=== PATIENT | male | born 1950 | race Caucasian/White ===

== ENCOUNTER 2017-03-10 07:53 | Inpatient (IN) | payer OTHER, MEDICARE ==
[~2017-03-10] VITALS: Ht 182.9 cm; Wt 76.1 kg
[2017-03-10] VITALS (11 sets, daily range): BP systolic 107–148; BP diastolic 62–83; PULSE 101–117; RESP 20–24; TEMP 97.1–98.4; O2SAT 91–96
[~2017-03-10 07:53] MED LIST: ADVA250A INH; ALBU0.086 NEB; ASPI325T PO; AZIT250T74 PO; METO50CR PO; MEVA40TA PO; PRED20 PO; SPIRCAP INH; Z.0.OXYGEN INH; Z.0.OXYGENDME NC; [UNRECOGNIZED DRUG - CODE] PO
[2017-03-10] MEDS ORDERED: SODIUM CHLORIDE 0.9% FLUSH 10 ML FLUSH IVF PRN (08:15)
[2017-03-10] MEDS ORDERED: methylPREDNISolone SOD SUCC 125 MG/2 ML VIAL IVP ONE (08:15)
[2017-03-10] MEDS: RESP: ALBUTEROL 2.5 MG/IPRATROPIUM 0.5 MG NEB (SCH) INH ×7 (08:18→23:12)
--- NOTE | 2017-03-10 08:20 | PD ---
HPI Chief Complaint: COPD exacerbation Time Seen by Provider: 08:04 Travel History International Travel<30 days: No Contact w/Intl Traveler<30days: No History of Present Illness HPI Patient is a 66-year-old male with history of emphysema who is on 2 L home O2 at all times, presents to emergency room with complaints of COPD exacerbation. Patient reports that since Saturday, he has been coughing and bringing up thick productive mucus. Patient reports that he had to increase his oxygen to 3 L nasal cannula as he has been feeling increasingly short of breath. Patient reports that he is still a smoker, reports that he smokes one pack of cigarettes every 2 days. Patient denies any chest pain at this time, reports that he does feel short of breath. Patient reports that symptoms are similar to when he was diagnosed with COPD exacerbation the past. Patient also reports that he has been wheezing, he has been using his neb treatments with no relief of symptoms. Patient denies any fevers or chills at this time. Patient with no sick contacts. PFSH Past Medical History Blood Disorders: No Heart Rhythm Problems: Yes Cancer: No Cardiovascular Problems: Yes (PACEMAKER) High Cholesterol: Yes Congestive Heart Failure: No COPD: Yes Coronary Artery Disease: No (Hx Afib/ Pacemaker) Diabetes: No Endocrine: No Gastrointestinal Disorders: No Genitourinary: No Hepatitis: No Hiatal Hernia: No Hypertension: No Immune Disorder: No Implanted Vascular Access Dvce: No Musculoskeletal: Yes (ARTHRITIS, NECK/ BACK HNP'S) Neurologic: Yes (VERTIGO HX) Psychiatric: No Reproductive: No Respiratory: Yes Sleep Apnea: No Thyroid Disease: No Past Surgical History Abdominal Surgery: Yes (APPENDECTOMY) AICD: No Appendectomy: Yes Cardiac Surgery: Yes (PACEMAKER 02/13) Ear Surgery: Yes (EAR DRUM REPLACED CHILD, L EAR SURGERY 06/2012) Joint Replacement: Yes Pacemaker: Yes Other Surgery: Yes Social History Alcohol Use: Yes (OCCATIONAL BEER) Tobacco Use: Yes (1/2 ppd) Substance Use: No Allergies-Medications (Allergen,Severity, Reaction): Coded Allergies: No Known Allergies (Verified , 03/10/17) Reported Meds & Prescriptions Reported Meds & Active Scripts Active Reported Advair Diskus Inh (Fluticasone-Salmeterol Inh) 250-50 Mcg/Blist Aer 1 Puff INH BID Rinse mouth after use. Spiriva Handihaler (Tiotropium Inh) 18 Mcg Cap 18 Mcg INH DAILY 1 capsule = 18 mcg Diltiazem CD 24 HR 240 Mg Caper 240 Mg PO DAILY Aspirin 325 Mg Tab 325 Mg PO DAILY Lovastatin 40 Mg Tab 40 Mg PO HS Review of Systems General / Constitutional: Positive: Chills, No: Fever Eyes: No: Visual changes HENT: No: Headaches Cardiovascular: No: Chest Pain or Discomfort Respiratory: Positive: Cough, Shortness of Breath, Wheezing Gastrointestinal: No: Nausea, Vomiting, Abdominal Pain Genitourinary: No: Dysuria Musculoskeletal: No: Pain Skin: No Rash Neurologic: No: Weakness Psychiatric: No: Depression Endocrine: No: Polydipsia Hematologic/Lymphatic: No: Easy Bruising Physical Exam Narrative GENERAL: Patient in mild distress SKIN: Focused skin assessment warm/dry. HEAD: Atraumatic. Normocephalic. EYES: Pupils equal and round. No scleral icterus. No injection or drainage. ENT: No nasal bleeding or discharge. Mucous membranes pink and moist. NECK: Trachea midline. No JVD. CARDIOVASCULAR: Regular rate and rhythm. No murmur appreciated. RESPIRATORY: No accessory muscle use. Patient with diffuse wheezing to upper and lower lobes of the lungs GASTROINTESTINAL: Abdomen soft, non-tender, nondistended. Hepatic and splenic margins not palpable. MUSCULOSKELETAL: No obvious deformities. No clubbing. No cyanosis. No edema. NEUROLOGICAL: Awake and alert. Normal speech. PSYCHIATRIC: Appropriate mood and affect; insight and judgment normal. Data Data Last Documented VS Vital Signs Date Time Temp Pulse Resp B/P Pulse Ox O2 Delivery O2 Flow Rate FiO2 03/10/17 10:20 117 24 127/74 94 Nasal Cannula 3 03/10/17 08:00 98.4 Orders Complete Blood Count With Diff (03/10/17 08:10) Comprehensive Metabolic Panel (03/10/17 08:10) Act Partial Throm Time (Ptt) (03/10/17 08:10) Prothrombin Time / Inr (Pt) (03/10/17 08:10) Influenzae A/B Antigen (03/10/17 08:10) Iv Access Insert/Monitor (03/10/17 08:10) Ecg Monitoring (03/10/17 08:10) Oximetry (03/10/17 08:10) Oxygen Administration (03/10/17 08:10) Chest, Single Ap (03/10/17 08:10) Sodium Chloride 0.9% Flush (Ns Flush) (03/10/17 08:15) Methylprednisolone So Succ Inj (Solumedr (03/10/17 08:15) Albuterol-Ipratropium Neb (Duoneb Neb) (03/10/17 08:15) Electrocardiogram (03/10/17 07:51) Albuterol Neb (Albuterol Neb) (03/10/17 09:30) Sodium Chlor 0.9% 1000 Ml Inj (Ns 1000 M (03/10/17 09:30) Arterial Blood Gas (Abg) (03/10/17 ) Admit Order (Ed Use Only) (03/10/17 10:27) Blood Culture (03/10/17 10:28) Levofloxacin 750 Mg Premix Inj (Levaquin (03/10/17 10:30) Labs Laboratory Tests Test 03/10/17 03/10/17 08:00 10:23 White Blood Count 11.2 TH/MM3 Red Blood Count 5.37 MIL/MM3 Hemoglobin 14.9 GM/DL Hematocrit 47.1 % Mean Corpuscular Volume 87.6 FL Mean Corpuscular Hemoglobin 27.7 PG Mean Corpuscular Hemoglobin 31.6 % Concent Red Cell Distribution Width 14.4 % Platelet Count 165 TH/MM3 Mean Platelet Volume 9.8 FL Neutrophils (%) (Auto) 80.2 % Lymphocytes (%) (Auto) 8.8 % Monocytes (%) (Auto) 10.2 % Eosinophils (%) (Auto) 0.6 % Basophils (%) (Auto) 0.2 % Neutrophils # (Auto) 9.0 TH/MM3 Lymphocytes # (Auto) 1.0 TH/MM3 Monocytes # (Auto) 1.1 TH/MM3 Eosinophils # (Auto) 0.1 TH/MM3 Basophils # (Auto) 0.0 TH/MM3 CBC Comment DIFF FINAL Differential Comment Prothrombin Time 10.7 SEC Prothromb Time International 1.0 RATIO Ratio Activated Partial 30.7 SEC Thromboplast Time Sodium Level 139 MEQ/L Potassium Level 4.5 MEQ/L Chloride Level 96 MEQ/L Carbon Dioxide Level 37.0 MEQ/L Anion Gap 6 MEQ/L Blood Urea Nitrogen 20 MG/DL Creatinine 1.20 MG/DL Estimat Glomerular Filtration 60 ML/MIN Rate Random Glucose 113 MG/DL Calcium Level 9.5 MG/DL Total Bilirubin 0.5 MG/DL Aspartate Amino Transf 16 U/L (AST/SGOT) Alanine Aminotransferase 17 U/L (ALT/SGPT) Alkaline Phosphatase 70 U/L Total Protein 8.5 GM/DL Albumin 3.8 GM/DL Blood Gas Puncture Site LT RADIAL Blood Gas Patient Temperature 98.6 Blood Gas HCO3 30 mmol/L Blood Gas Base Excess 4.2 mmol/L Blood Gas Oxygen Saturation 88 % Arterial Blood pH 7.29 Arterial Blood Partial 66 mmHG Pressure CO2 Arterial Blood Partial 68 mmHG Pressure O2 Arterial Blood Oxygen Content 17.8 Vol % Arterial Blood 2.4 % Carboxyhemoglobin Arterial Blood Methemoglobin 1.2 % Blood Gas Hemoglobin 14.3 G/DL Oxygen Delivery Device NASAL CANNULA Blood Gas Liter Flow 2.5 L/M MDM Medical Decision Making Medical Screen Exam Complete: Yes Emergency Medical Condition: Yes Interpretation(s) EKG at 0751: Sinus tachycardia at 111 beats per minutes Differential Diagnosis COPD exacerbation, pneumonia, acute bronchitis, influenza, ACS Narrative Course Patient is a 66-year-old male who presents to emergency room for COPD exacerbation. Reports that he is a smoker, reports that since Saturday, he has had a productive cough and has been increasingly short of breath. Patient reports that he increased his oxygen requirements from 2 L to 3 L as this seems to help a little better. Patient reports that he has had a productive cough, no fevers or chills. Patient was placed on a front desk monitor upon arrival to emergency room. He was also placed on 3 L nasal cannula with continuous pulse oximeter monitoring. Patient is wheezing on exam, IV steroids as well as neb treatments ordered. Plan to monitor patient carefully. 0915: patient re-evaluated after 3 duonebs, no relief of symptoms, patient reports that he still feels sob, plan to remedicate Vital Signs Date Time Temp Pulse Resp B/P Pulse Ox O2 Delivery O2 Flow Rate FiO2 03/10/17 08:50 117 20 107/74 95 Nasal Cannula 3 03/10/17 08:16 95 Nasal Cannula 3.00 03/10/17 08:00 91 Nasal Cannula 3 03/10/17 08:00 106 24 91 Nasal Cannula 3 03/10/17 08:00 98.4 106 24 118/80 91 Nasal Cannula 3 03/10/17 08:00 91 03/10/17 07:53 98.4 106 24 118/82 91 Last Impressions Chest X-Ray 03/10/17 0810 Signed Impressions: Service Date/Time: Friday, March 10, 2017 08:18 - CONCLUSION: No significant change. Chronic changes most consistent with scarring. Erik Page MD Laboratory Tests Test 03/10/17 08:00 White Blood Count 11.2 TH/MM3 (4.0-11.0) Red Blood Count 5.37 MIL/MM3 (4.50-5.90) Hemoglobin 14.9 GM/DL (13.0-17.0) Hematocrit 47.1 % (39.0-51.0) Mean Corpuscular Volume 87.6 FL (80.0-100.0) Mean Corpuscular Hemoglobin 27.7 PG (27.0-34.0) Mean Corpuscular Hemoglobin 31.6 % Concent (32.0-36.0) Red Cell Distribution Width 14.4 % (11.6-17.2) Platelet Count 165 TH/MM3 (150-450) Mean Platelet Volume 9.8 FL (7.0-11.0) Neutrophils (%) (Auto) 80.2 % (16.0-70.0) Lymphocytes (%) (Auto) 8.8 % (9.0-44.0) Monocytes (%) (Auto) 10.2 % (0.0-8.0) Eosinophils (%) (Auto) 0.6 % (0.0-4.0) Basophils (%) (Auto) 0.2 % (0.0-2.0) Neutrophils # (Auto) 9.0 TH/MM3 (1.8-7.7) Lymphocytes # (Auto) 1.0 TH/MM3 (1.0-4.8) Monocytes # (Auto) 1.1 TH/MM3 (0-0.9) Eosinophils # (Auto) 0.1 TH/MM3 (0-0.4) Basophils # (Auto) 0.0 TH/MM3 (0-0.2) CBC Comment DIFF FINAL Differential Comment Prothrombin Time 10.7 SEC (9.8-11.6) Prothromb Time International 1.0 RATIO Ratio Activated Partial 30.7 SEC Thromboplast Time (24.3-30.1) Sodium Level 139 MEQ/L (136-145) Potassium Level 4.5 MEQ/L (3.5-5.1) Chloride Level 96 MEQ/L (98-107) Carbon Dioxide Level 37.0 MEQ/L (21.0-32.0) Anion Gap 6 MEQ/L (5-15) Blood Urea Nitrogen 20 MG/DL (7-18) Creatinine 1.20 MG/DL (0.60-1.30) Estimat Glomerular Filtration 60 ML/MIN (>89) Rate Random Glucose 113 MG/DL (74-106) Calcium Level 9.5 MG/DL (8.5-10.1) Total Bilirubin 0.5 MG/DL (0.2-1.0) Aspartate Amino Transf 16 U/L (15-37) (AST/SGOT) Alanine Aminotransferase 17 U/L (12-78) (ALT/SGPT) Alkaline Phosphatase 70 U/L (45-117) Total Protein 8.5 GM/DL (6.4-8.2) Albumin 3.8 GM/DL (3.4-5.0) Microbiology Date/Time Procedure Status Source Growth 03/10/17 08:20 Influenza Types A,B Antigen (ОЛЬГА) - Final Complete Nasal Aspirate NEGATIVE FOR FLU A AND B ANTIGEN.... 1000: Patient reevaluated, patient has received 6 neb treatments, patient with minimal relief of symptoms, patient continues to wheeze complaint of shortness of breath. He is hypoxic with a pulse ox of 91% on 3 L nasal cannula. Patient is supposed to be only on 2 L nasal cannula at all times. Patient will require admission for COPD exacerbation. Case reviewed with Dr. Parker, accepts pt to service, request blood cultures and levaquin. abg: pH 7.29, pO2 68, O2 saturation 88 on 3L nc patient is hypoxic and acidotic and requires admission Critical Care Narrative Aggregate critical care time was 30 minutes. Time to perform other separately billable procedures was not included in the critical care time. My time did not include minutes spent treating any other patients simultaneously or on activities that did not directly contribute to the patient's treatment. The services I provided to this patient were to treat and/or prevent clinically significant deterioration that could result in: , decompensation, deterioration I provided critical care services requiring my management, as noted below: Chart data review, documentation time, medication orders and management, vital sign assessments/reviewing monitor data, ordering and reviewing lab tests, ordering and interpreting/reviewing x-rays and diagnostic studies, care of the patient and discussion of the patient with the admitting physicians. Diagnosis Primary Impression: Hypoxia Additional Impression: COPD exacerbation Admitting Information Admitting Physician Requests: Flor Wyman DO March 10, 2017 08:20
[2017-03-10 08:25] LABS: BASOPHIL % 0.2 % (0.0-2.0); EOSINOPHIL # 0.1 TH/MM3 (0-0.4); EOSINOPHIL % 0.6 % (0.0-4.0); HEMATOCRIT 47.1 % (39.0-51.0); LYMPH % 8.8 % (9.0-44.0); MEAN CELL VOLUME 87.6 FL (80.0-100.0); MEAN CORPUSCULAR HEMOGLOBIN 27.7 PG (27.0-34.0); MEAN CORPUSCULAR HGB CONC 31.6 % (32.0-36.0); MONO % 10.2 % (0.0-8.0); NEUT % 80.2 % (16.0-70.0); PLATELET COUNT 165 TH/MM3 (150-450); RED BLOOD COUNT 5.37 MIL/MM3 (4.50-5.90); RED CELL DISTRIBUTION WIDTH 14.4 % (11.6-17.2); WHITE BLOOD COUNT 11.2 TH/MM3 (4.0-11.0)
[2017-03-10 08:27] LABS: HEMO FLAGS DIFF FINAL
--- NOTE | 2017-03-10 08:29 | RADHPO ---
EXAM DATE/TIME: 03/10/2017 08:18 [facility] COMPARISON: CHEST SINGLE AP, April 13, 2016, 7:34. INDICATIONS : Short of breath MEDICAL HISTORY : Chronic obstructive pulmonary disease. Emphysema. SURGICAL HISTORY : Pacemaker. ENCOUNTER: Initial ACUITY: 3 days PAIN SCORE: 0/10 LOCATION: Bilateral chest FINDINGS: 2 AP erect views of the chest were obtained and again demonstrate the left clavian transvenous pacer in place. The lungs remain hyperinflated with volume loss on the left. Hazy opacity remains greatest in the left infrahilar region. There is chronic blunting of the left costophrenic angle. The heart si ze remains within normal limits. Biapical pleural-parenchymal changes noted consistent with scarring. There are mild atherosclerotic changes. CONCLUSION: No significant change. Chronic changes most consistent with scarring. Erik Page MD on March 10, 2017 at 8:25 Board Certified Radiologist. This report was verified electronically.
[2017-03-10 08:31] LABS: CHLORIDE 96 MEQ/L (98-107); POTASSIUM 4.5 MEQ/L (3.5-5.1); SODIUM (NA) 139 MEQ/L (136-145)
[2017-03-10] MEDS ORDERED: SPIRCAP INH (08:31)
[2017-03-10] MEDS ORDERED: ASPI325T PO (08:31)
[2017-03-10] MEDS ORDERED: DILT-64 PO (08:31)
[2017-03-10] MEDS ORDERED: ADVA250A INH (08:31)
[2017-03-10] MEDS ORDERED: LOVA40TA PO (08:31)
[2017-03-10 08:35] LABS: ANION GAP 6 MEQ/L (5-15); APTT (PATIENT) 30.7 SEC (24.3-30.1); BLOOD UREA NITROGEN 20 MG/DL (7-18); PROTHROMBIN TIME - PATIENT 10.7 SEC (9.8-11.6)
[2017-03-10 08:38] LABS: ALT (GPT) 17 U/L (12-78); AST (GOT) 16 U/L (15-37); GLOMERULAR FILTRATION RATE 60 ML/MIN (>89)
[2017-03-10 08:40] LABS: TOTAL BILIRUBIN ADULT 0.5 MG/DL (0.2-1.0)
[2017-03-10 08:41] LABS: ALKALINE PHOSPHATASE 70 U/L (45-117)
[2017-03-10] MEDS ORDERED: SODIUM CHLOR 0.9% 1000 ML INJ 1,000 ML IV ONE (09:30)
[2017-03-10] MEDS: RESP: ALBUTEROL 2.5 MG/3 ML NEB (SCH) INH ×3 (09:32→09:34)
[2017-03-10 10:27] LABS: BLOOD GAS BASE EXCESS 4.2 mmol/L (-2-2); BLOOD GAS CARBOXYHEMOGLOBIN 2.4 % (0-4); BLOOD GAS HCO3 30 mmol/L (22-26); BLOOD GAS METHEMOGLOBIN 1.2 % (0-2); BLOOD GAS O2 HGB SATURATION 88 % (90-100); BLOOD GAS OXYGEN CONTENT 17.8 Vol % (12.0-20.0); BLOOD GAS PCO2 66 mmHG (38-42); BLOOD GAS PO2 68 mmHG (61-120); BLOOD GAS TOTAL HGB 14.3 G/DL (12.0-16.0); CRITICAL VALUE YES; DRAW SITE LT RADIAL; LITER FLOW 2.5 L/M; NUMBER OF ARTERIAL PUNCTURES 1; OXYGEN DEVICE NASAL CANNULA; STAT YES; TEMP CORR TO 98.6; ULNAR PULSE Y
[2017-03-10] MEDS ORDERED: LEVOFLOXACIN 750 MG PREMIX INJ 150 ML IV ONE (10:30)
--- NOTE | 2017-03-10 10:34 | EKG ---
Date Performed: 03/10/2017 Time Performed: 07:51:44 PTAGE: 66 years EKG: Sinus tachycardia with PAC(s) Right axis deviation Possible inferior infarct - age undeterm ined Possible anterior infarct - age undetermined Abnormal ECG PREVIOUS TRACING : 04/09/2016 10.29 DOCTOR: Beti Bolton Interpretating Date/Time 03/10/2017 10:33:18
[2017-03-10] MEDS ORDERED: LEVOFLOXACIN 750 MG TAB PO SCH (11:00)
[2017-03-10] MEDS: NICOTINE 21 MG/24 HR PATCH TD SCH (11:38)
[2017-03-10] MEDS: ENOXAPARIN SODIUM 40 MG/0.4 ML SYRINGE SQ SCH (12:45)
[2017-03-10] MEDS: methylPREDNISolone SOD SUCC 125 MG/2 ML VIAL IVP SCH ×2 (12:45→17:16)
--- NOTE | 2017-03-10 14:03 | HHI.HP ---
[facility] Service [facility] Primary Care Physician Cuate Hay MD Admission Diagnosis COPD Exacerbation, hypoxia Diagnoses: (1) Sepsis Diagnosis: Principal (2) COPD exacerbation Diagnosis: Principal (3) Acute bronchitis with COPD Diagnosis: Principal (4) Acute on chronic respiratory failure Diagnosis: Principal Chief Complaint: "emphysema...could hardly breathe" Travel History International Travel<30 Days: No Contact w/Intl Traveler <30 Da: No Traveled to Known Affected Are: No Sepsis Criteria SIRS Criteria (2 or more): Heart rate over 90, RR > 20 or PaCO2 < 32 Sepsis Criteria (SIRS+source): Infect source susp/known Criteria Outcome: Meets sepsis criteria History of Present Illness 66-year-old male with history of atrial fibrillation with pacemaker and hyperlipidemia presents with complaint of "emphysema". Patient states the other day he went on a bike ride and was exposed to a lot of pollen. He states he became worse and worse and "could hardly breathe". Admits to coughing and states he is coughing up quite a bit of phlegm ranging from yellow to brown to green in color. Admits to chills once in a while. Admits to wheezing. States he has tightness in his chest but denies chest pain otherwise. Patient states he uses 2 L oxygen chronically has had 2 increase it to 3 L in the past couple of weeks. He does not have a metalsmith although he has seen once in the past. He states his PCP Dr. Hay takes care of his COPD medications. Denies any dizziness. States he "vomited" up some mucus the other day. Denies any diarrhea. Review of Systems Except as stated in HPI: all other systems reviewed are Neg Past Family Social History Past Medical History COPD on O2 at home Atrial fibrillation, pacemaker Hyperlipidemia Past Surgical History Hip replacement 3 left ear surgeries Appendectomy as a child Reported Medications Advair Diskus Inh (Fluticasone-Salmeterol Inh) 250-50 Mcg/Blist Aer 1 Puff INH BID Rinse mouth after use. Spiriva Handihaler (Tiotropium Inh) 18 Mcg Cap 18 Mcg INH DAILY 1 capsule = 18 mcg Diltiazem CD 24 HR 240 Mg Caper 240 Mg PO DAILY Aspirin 325 Mg Tab 325 Mg PO DAILY Lovastatin 40 Mg Tab 40 Mg PO HS Allergies: Coded Allergies: No Known Allergies (Verified , 03/10/17) Family History Mother: of [place] at age 67. Social History Smokes 2 packs per week of cigarettes. Drinks very little alcohol. Denies illicit drug use. Physical Exam Vital Signs Vital Signs Date Time Temp Pulse Resp B/P Pulse Ox O2 Delivery O2 Flow Rate FiO2 03/10/17 11:16 114 22 141/75 91 Nasal Cannula 3 03/10/17 10:20 117 24 127/74 94 Nasal Cannula 3 03/10/17 08:50 117 20 107/74 95 Nasal Cannula 3 03/10/17 08:16 95 Nasal Cannula 3.00 03/10/17 08:00 91 Nasal Cannula 3 03/10/17 08:00 106 24 91 Nasal Cannula 3 03/10/17 08:00 98.4 106 24 118/80 91 Nasal Cannula 3 03/10/17 08:00 91 03/10/17 07:53 98.4 106 24 118/82 91 Physical Exam GENERAL: This is a pleasant thin, well-developed patient, in no apparent distress. SKIN: No rashes, ecchymoses or lesions. Warm and dry. HEAD: Atraumatic. Normocephalic. EYES: No scleral icterus. No injection or drainage. NECK: Trachea midline. CARDIOVASCULAR: Irregularly irregular rhythm without murmurs, gallops, or rubs. RESPIRATORY: Decreased breath sounds. Diffuse expiratory wheezing bilaterally. No rales or rhonchi. GASTROINTESTINAL: Abdomen soft, non-tender, nondistended. No hepato- splenomegaly. No guarding. MUSCULOSKELETAL: No lower extremity edema bilaterally. NEUROLOGICAL: Awake and alert. Motor grossly within normal limits. Normal speech. Laboratory Laboratory Tests Test 03/10/17 03/10/17 03/10/17 08:00 10:23 11:21 White Blood Count 11.2 Red Blood Count 5.37 Hemoglobin 14.9 Hematocrit 47.1 Mean Corpuscular Volume 87.6 Mean Corpuscular Hemoglobin 27.7 Mean Corpuscular Hemoglobin 31.6 Concent Red Cell Distribution Width 14.4 Platelet Count 165 Mean Platelet Volume 9.8 Neutrophils (%) (Auto) 80.2 Lymphocytes (%) (Auto) 8.8 Monocytes (%) (Auto) 10.2 Eosinophils (%) (Auto) 0.6 Basophils (%) (Auto) 0.2 Neutrophils # (Auto) 9.0 Lymphocytes # (Auto) 1.0 Monocytes # (Auto) 1.1 Eosinophils # (Auto) 0.1 Basophils # (Auto) 0.0 CBC Comment DIFF FINAL Differential Comment Prothrombin Time 10.7 Prothromb Time International 1.0 Ratio Activated Partial 30.7 Thromboplast Time Sodium Level 139 Potassium Level 4.5 Chloride Level 96 Carbon Dioxide Level 37.0 Anion Gap 6 Blood Urea Nitrogen 20 Creatinine 1.20 Estimat Glomerular Filtration 60 Rate Random Glucose 113 Calcium Level 9.5 Total Bilirubin 0.5 Aspartate Amino Transf 16 (AST/SGOT) Alanine Aminotransferase 17 (ALT/SGPT) Alkaline Phosphatase 70 Total Protein 8.5 Albumin 3.8 Blood Gas Puncture Site LT RADIAL Blood Gas Patient Temperature 98.6 Blood Gas HCO3 30 Blood Gas Base Excess 4.2 Blood Gas Oxygen Saturation 88 Arterial Blood pH 7.29 Arterial Blood Partial 66 Pressure CO2 Arterial Blood Partial 68 Pressure O2 Arterial Blood Oxygen Content 17.8 Arterial Blood 2.4 Carboxyhemoglobin Arterial Blood Methemoglobin 1.2 Blood Gas Hemoglobin 14.3 Oxygen Delivery Device NASAL CANNULA Blood Gas Liter Flow 2.5 Lactic Acid Level 1.9 Date/Time Procedure Status Source Growth 03/10/17 11:15 Aerobic Blood Culture Received Blood Peripheral Pending 03/10/17 11:15 Anaerobic Blood Culture Received Blood Peripheral Pending 03/10/17 08:20 Influenza Types A,B Antigen (ОЛЬГА) - Final Complete Nasal Aspirate NEGATIVE FOR FLU A AND B ANTIGEN.... Result Diagram: 03/10/17 0803/10/17 08 Imaging Last Impressions Chest X-Ray 03/10/17 08 Signed Impressions: Service Date/Time: Friday, March 10, 2017 08:18 - CONCLUSION: No significant change. Chronic changes most consistent with scarring. Erik Page MD Assessment and Plan Assessment and Plan 66-year-old male with: Sepsis: Heart rate 106. RR 24. Lactic acid normal. Suspected source of infection acute bronchitis. -Antibiotics as below. -Blood cultures pending -Monitor CBC COPD exacerbation/Acute bronchitis/Acute on chronic resp failure: Patient normally on 2 L of oxygen increased to 3L recently. ABG on 2.5L with acidosis, pH of 7.29 and CO2 of 66 with hypoxia, O2 sat 88. Pollen likely triggered COPD exacerbation, but also also has a lot of yellow/green/brown sputum. Negative for influenza. -Continue Solu-Medrol 60 mg every 6 hours IV -Scheduled DuoNebs every 4 hours with albuterol every 2h prn -Levaquin 750 mg IV every 24 hours -O2 via NC -Sputum culture -Hold home Spiriva and Advair for now A.Fib: Continue diltiazem and aspirin. HLD: continue statin DVT prevention: Lovenox Written by Kelly Jorgensen PA-C acting as scribe for Dr. Parker on 03/10/17 at ~ 1400. This note was transcribed by scribe Kelly Jorgensen. I, Dr. Boy Bates personally performed the history, physical exam, and medical decision making; and confirmed the accuracy of the information in the transcribed note. Authenticated by Dr. Boy Bates on 03/13/17 at 21:54. Discussed Condition With ED physician Physician Certification 2 Midnight Certification Type: Admission for Inpatient Services Order for Inpatient Services The services are ordered in accordance with Medicare regulations or non- Medicare payer requirements, as applicable. In the case of services not specified as inpatient-only, they are appropriately provided as inpatient services in accordance with the 2-midnight benchmark. Estimated LOS (days): 2 days is the estimated time the patient will need to remain in the hospital, assuming treatment plan goals are met and no additional complications. Post-Hospital Plan: Home Problem Qualifiers (1) Acute on chronic respiratory failure: Qualified Code: J96.21 - Acute on chronic respiratory failure with hypoxia and hypercapnia Kelly Jorgensen March 10, 2017 14:02 Boy Taylor MD March 13, 2017 21:54
[2017-03-10] MEDS: SODIUM CHLORIDE 0.9% FLUSH 10 ML FLUSH IV FLUSH SCH (20:38)
[2017-03-10] MEDS: PRAVASTATIN SOD 40 MG TAB PO SCH (20:38)
[2017-03-10] MEDS: DILTIAZEM-CD 240 MG CAP ER PO SCH (20:38)
[2017-03-11] VITALS (23 sets, daily range): BP systolic 90–138; BP diastolic 49–80; PULSE 80–111; RESP 11–37; TEMP 96.7–97.7; O2SAT 85–96
[2017-03-11] MEDS: methylPREDNISolone SOD SUCC 125 MG/2 ML VIAL IVP SCH ×5 (00:15→22:41)
[2017-03-11] MEDS: RESP: ALBUTEROL 2.5 MG/IPRATROPIUM 0.5 MG NEB (SCH) INH ×5 (03:46→19:26)
[2017-03-11 07:07] LABS: AUTOMATED NEUTROPHIL # 7.2 TH/MM3 (1.8-7.7); BASOPHIL % 0.2 % (0.0-2.0); EOSINOPHIL % 0.1 % (0.0-4.0); HEMATOCRIT 41.2 % (39.0-51.0); HEMO FLAGS DIFF FINAL; LYMPH % 5.7 % (9.0-44.0); LYMPHOCYTE # 0.5 TH/MM3 (1.0-4.8); MEAN CELL VOLUME 87.1 FL (80.0-100.0); MEAN CORPUSCULAR HEMOGLOBIN 28.5 PG (27.0-34.0); MEAN CORPUSCULAR HGB CONC 32.8 % (32.0-36.0); MONO % 3.1 % (0.0-8.0); NEUT % 90.9 % (16.0-70.0); PLATELET COUNT 142 TH/MM3 (150-450); RED BLOOD COUNT 4.74 MIL/MM3 (4.50-5.90); WHITE BLOOD COUNT 7.9 TH/MM3 (4.0-11.0)
[2017-03-11 07:16] LABS: POTASSIUM 4.3 MEQ/L (3.5-5.1)
[2017-03-11 07:19] LABS: BICARBONATE 37.4 MEQ/L (21.0-32.0)
[2017-03-11] MEDS ORDERED: FUROSEMIDE 40 MG/4 ML VIAL ONE (07:52)
[2017-03-11] MEDS: SODIUM CHLORIDE 0.9% FLUSH 10 ML FLUSH IV FLUSH SCH ×2 (07:54→21:04)
--- NOTE | 2017-03-11 08:14 | RADHPO ---
EXAM DATE/TIME: 03/11/2017 08:04 [facility] COMPARISON: CHEST SINGLE AP, March 10, 2017, 8:18. INDICATIONS : Shortness of breath; respiratory distress. MEDICAL HISTORY : Chronic obstructive pulmonary disease. Afib. Coronary artery disease. SURGICAL HISTORY : Pacemaker. Appendectomy. ENCOUNTER: Subsequent ACUITY: 2 days PAIN SCORE: 0/10 LOCATION: Bilateral chest FINDINGS: A single view of the chest demonstrates hyperaeration with hazy opacity in the left midlung. Left-virgilio ed pacemaker with 2 intact leads. Osseous structures are intact. CONCLUSION: Hyperaeration with hazy opacity in the left midlung, unchanged likely representing scarring. Wilber Brown MD on March 11, 2017 at 8:10 Board Certified Radiologist. This report was verified electronically.
[2017-03-11] MEDS ORDERED: methylPREDNISolone SOD SUCC 125 MG/2 ML VIAL IV PUSH ONE (08:45)
--- NOTE | 2017-03-11 08:46 | HHI.PR ---
Subjective Remarks Called by RN earlier today for respiratory distress as per RN patient with coarse sounds patient c/o of sob, denies cp oxygen saturation went down to 85% Placed on 6 liters nasal canula - sating 92% Objective Vitals Vital Signs Date Time Temp Pulse Resp B/P Pulse Ox O2 Delivery O2 Flow Rate FiO2 03/11/17 07:30 85 Nasal Cannula 4.00 03/11/17 04:00 97.2 80 20 109/66 90 03/11/17 00:00 96.7 90 21 115/59 93 03/10/17 20:00 97.1 101 21 122/62 93 03/10/17 19:31 93 Nasal Cannula 2.00 03/10/17 16:00 98.2 106 20 135/80 96 03/10/17 13:00 97.1 117 20 148/83 92 03/10/17 11:16 114 22 141/75 91 Nasal Cannula 3 03/10/17 10:20 117 24 127/74 94 Nasal Cannula 3 03/10/17 08:50 117 20 107/74 95 Nasal Cannula 3 I/O 03/10/17 03/10/17 03/10/17 03/11/17 03/11/17 03/11/17 07:00 15:00 23:00 07:00 15:00 23:00 Intake Total 1000 ml 960 ml Balance 1000 ml 960 ml Intake Oral 960 ml IV Total 1000 ml # Voids 5 5 Result Diagram: 03/11/17 0655 03/11/17 0655 Imaging Last Impressions Chest X-Ray 03/11/17 0000 Signed Impressions: Service Date/Time: Saturday, March 11, 2017 08:04 - CONCLUSION: Hyperaeration with hazy opacity in the left midlung, unchanged likely representing scarring. Wilber Brown MD Objective Remarks GENERAL: This is a pleasant thin, well-developed patient, in moderate respiratory distress using accessory muscles of respiration. SKIN: No rashes, ecchymoses or lesions. Warm and dry. HEAD: Atraumatic. Normocephalic. EYES: No scleral icterus. No injection or drainage. NECK: Trachea midline. CARDIOVASCULAR: Irregularly irregular rhythm without murmurs, gallops, or rubs. RESPIRATORY: Decreased breath sounds. Diffuse expiratory wheezing bilaterally. No rales or rhonchi. GASTROINTESTINAL: Abdomen soft, non-tender, nondistended. No hepato- splenomegaly. No guarding. MUSCULOSKELETAL: No lower extremity edema bilaterally. NEUROLOGICAL: Awake and alert. Motor grossly within normal limits. Normal speech. Medications and IVs Current Medications Medications (Trade) Dose Ordered Sig/Lluvia Route Start Time Stop Time Status Last Admin (NS Flush) 2 ml BID IV FLUSH 03/10/17 21:00 03/11/17 07:54 (NS Flush) 2 ml UNSCH PRN IV FLUSH 03/10/17 11:00 (SoluMEDROL INJ) 60 mg Q6H IVP 03/10/17 12:00 03/11/17 05:33 (Habitrol 21 Mg Patch.24 Hr) 1 patch DAILY TD 03/10/17 12:00 03/11/17 08:48 (Lovenox Inj) 40 mg Q24H SQ 03/10/17 12:00 03/10/17 12:45 Miscellaneous Information 1 DAILY T-DERMAL 03/11/17 09:00 03/11/17 08:48 (Levaquin) 750 mg Q24H PO 03/11/17 12:00 (Aspirin) 325 mg DAILY PO 03/11/17 09:00 03/11/17 08:47 (Cardizem Cd) 240 mg HS PO 03/10/17 21:00 03/10/17 20:38 (Pravachol) 40 mg HS PO 03/10/17 21:00 03/10/17 20:38 Urinary Catheter: No Vascular Central Line Catheter: No A/P Problem List: (1) Sepsis ICD Code: A41.9 Status: Acute (2) COPD exacerbation ICD Code: J44.1 Status: Acute (3) Acute bronchitis with COPD ICD Code: J44.0 Status: Acute (4) Acute on chronic respiratory failure ICD Code: J96.20 Status: Acute Assessment and Plan 66-year-old male with: Sepsis: Heart rate 106. RR 24. Lactic acid normal. Suspected source of infection acute bronchitis. -Antibiotics as below. -Blood cultures pending -Monitor CBC COPD exacerbation/Acute bronchitis/Acute on chronic resp failure: Patient normally on 2 L of oxygen increased to 3L recently. ABG on 2.5L with acidosis, pH of 7.29 and CO2 of 66 with hypoxia, O2 sat 88. Pollen likely triggered COPD exacerbation, but also also has a lot of yellow/green/brown sputum. Negative for influenza. -Continue Solu-Medrol 60 mg every 6 hours IV -Scheduled DuoNebs every 4 hours with albuterol every 2h prn -Levaquin 750 mg by mouth every 24 hours -O2 via NC -Sputum culture - pending -Hold home Spiriva and Advair for now 03/11 Ordered Lasix 40 mg IV once and Solumedrol 125 mg IV once and transfer to the intensive care unit. If still hypoxemic will try Bipap. repeat cxr ordered - showed hyperaeration with hazy opacity of the midlung unchanged from previous. Will follow repiratory status. A.Fib: Continue diltiazem and aspirin. HLD: continue statin DVT prevention: Lovenox Discharge Planning transfer to the intensive care unit Problem Qualifiers (1) Acute on chronic respiratory failure: Qualified Code: J96.21 - Acute on chronic respiratory failure with hypoxia and hypercapnia Boy Taylor MD March 11, 2017 08:46
[2017-03-11] MEDS: ASPIRIN 325 MG TAB PO SCH (08:47)
[2017-03-11] MEDS: NICOTINE 21 MG/24 HR PATCH TD SCH (08:48)
[2017-03-11] MEDS: REMOVE OLD PATCH T-DERMAL SCH (08:48)
[2017-03-11] MEDS ORDERED: FUROSEMIDE 40 MG/4 ML VIAL IV ONE (09:00)
--- NOTE | 2017-03-11 09:53 | PD.PN.STU ---
Subjective Remarks Patient is a 66 year old gentleman with history of COPD on oxygen therapy 27/05 who presented to the ED 03/10 with worsening SOB. This began night and worsened over the next few days, so his brought him to the ED. He has had COPD exacerbations in the past and says this current episode felt similar. He has smoked for over 50 years and says for many years he smoked 2-3 ppd. He still smokes 1/2 ppd and understands the importance of smoking cessation. PMH includes HTN, HPL, afib with pacemaker placement, and arthritis. His surgical history includes appendectomy and hip replacement. Medications include Advair, Spiriva, Diltiazem, Aspirin, and Lovastatin. Today he continues to have a cough and some SOB. He does feel he his slowly improving. He is producing thick white mucus with his cough occasionally. Other complaints include weakness. He denies nausea/vomiting, diarrhea, abdominal pain , lightheadedness, or palpitations. Objective Vitals General: well-developed man who appears comfortable, he does have a persistent cough. HEENT: atraumatic, normocephalic, extraocular movements intact, no conjunctival injection, oral mucosa is pink and moist, trachea is midline. Heart: S1,S2 RRR, no murmurs appreciated, no rubs/gallops, no JVD Pulm: symmetrical chest wall movement, no accessory muscle use/nasal flaring, does have diffuse wheezing, no rales/rhonchi Abdomen: soft, nondistended, no tenderness to palpation, no organomegaly MSK: no obvious deformities, no edema, general weakness Neuro: appropriate speech Psych: appropriate mood Vital Signs Date Time Temp Pulse Resp B/P Pulse Ox O2 Delivery O2 Flow Rate FiO2 03/11/17 08:00 96.8 102 24 138/80 89 03/11/17 07:30 85 Nasal Cannula 4.00 03/11/17 04:00 97.2 80 20 109/66 90 03/11/17 00:00 96.7 90 21 115/59 93 03/10/17 20:00 97.1 101 21 122/62 93 03/10/17 19:31 93 Nasal Cannula 2.00 03/10/17 16:00 98.2 106 20 135/80 96 03/10/17 13:00 97.1 117 20 148/83 92 03/10/17 11:16 114 22 141/75 91 Nasal Cannula 3 03/10/17 10:20 117 24 127/74 94 Nasal Cannula 3 I/O 03/10/17 03/10/17 03/10/17 03/11/17 03/11/17 03/11/17 07:00 15:00 23:00 07:00 15:00 23:00 Intake Total 1000 ml 960 ml Balance 1000 ml 960 ml Intake Oral 960 ml IV Total 1000 ml # Voids 5 5 Result Diagram: 03/11/17 0655 03/11/17 0655 Imaging Chest X-ray: hyperaeration with hazy opacity in left midlung unchanged from previous imaging, likely previous scarring. A/P Assessment and Plan COPD exacerbation: Continue oxygen therapy via nasal canula Continue Levofloxacin Continue nebs Increased SoluMEDROL for diffuse wheezing Consider adding Guaifenesin as he seems to have some trouble expelling mucus Tobacco use: Discussed the importance of smoking cessation Afib: Continue diltiazem and aspirin Hyperlipidemia: Continue -statin therapy General weakness: Patient transferred to ICU today Will likely need PT for deconditioning once he is able to tolerate DVT prophylaxis: Cayden Juan M3 March 11, 2017 09:53 Boy Taylor MD March 12, 2017 11:51
[2017-03-11] MEDS ORDERED: LEVOFLOXACIN 750 MG TAB PO SCH (12:00)
[2017-03-11] MEDS: ENOXAPARIN SODIUM 40 MG/0.4 ML SYRINGE SQ SCH (13:51)
[2017-03-11] MEDS: BUDESONIDE-FORMOTEROL 160/4.5 MCG INHALER INH SCH (21:02)
[2017-03-11] MEDS: LEVOFLOXACIN 750 MG PREMIX INJ 150 ML IV SCH (21:02)
[2017-03-11] MEDS: DILTIAZEM-CD 240 MG CAP ER PO SCH (21:02)
[2017-03-11] MEDS: PRAVASTATIN SOD 40 MG TAB PO SCH (21:02)
[2017-03-11] MEDS ORDERED: CHLORHEXIDINE GLUCONATE 2 % 1 PACK (2 CLOTHS)(extra cloths) TOPICAL PRN (21:15)
[2017-03-12] VITALS (30 sets, daily range): BP systolic 92–135; BP diastolic 53–82; PULSE 72–118; RESP 11–36; TEMP 96.2–98; O2SAT 90–97
[2017-03-12] MEDS: RESP: ALBUTEROL 2.5 MG/IPRATROPIUM 0.5 MG NEB (SCH) INH ×7 (00:35→23:29)
[2017-03-12] MEDS: CHLORHEXIDINE GLUCONATE 2 % 1 PACK (2 CLOTHS)(taper/protocol) TOPICAL SCH (04:00)
[2017-03-12] MEDS: methylPREDNISolone SOD SUCC 125 MG/2 ML VIAL IVP SCH ×2 (04:42→12:29)
[2017-03-12 05:52] LABS: BLOOD GAS BASE EXCESS 8.4 mmol/L (-2-2); BLOOD GAS CARBOXYHEMOGLOBIN 1.1 % (0-4); BLOOD GAS HCO3 33 mmol/L (22-26); BLOOD GAS METHEMOGLOBIN 1.1 % (0-2); BLOOD GAS O2 HGB SATURATION 94 % (90-100); BLOOD GAS OXYGEN CONTENT 17.5 Vol % (12.0-20.0); BLOOD GAS PCO2 53 mmHg (38-42); BLOOD GAS PO2 80 mmHg (61-120); BLOOD GAS TOTAL HGB 13.2 G/DL (12.0-16.0); CRITICAL VALUE YES; DRAW SITE RT RADIAL; FIO2 35 %; NUMBER OF ARTERIAL PUNCTURES 1; OXYGEN DEVICE BIPAP; STAT NO; TEMP CORR TO 98.6; ULNAR PULSE PRESENT; VENT SETTINGS 12IPAP/5EPAP
--- NOTE | 2017-03-12 06:42 | MB ---
cc: SRINI PLEITEZ DATE OF CONSULTATION 03/11/2017 REASON FOR CONSULTATION COPD and respiratory distress. HISTORY OF PRESENT ILLNESS This is a 66-year-old white male with a past history of COPD who was admitted with complaints of progressive shortness breath, wheezing and chest congestion. The patient has been coughing up some thick whitish-yellow mucus and also upon arrival was hypoxic and was placed on oxygen via nasal cannula. He was coughing and the patient was not running any fever, but has been wheezing and orthopneic. Following admission, he has also noted to be in atrial fibrillation. The chest x-ray showed some hazy infiltrate in the left lung field, but otherwise unremarkable. He was then transferred to the intensive care unit since he was having some increasing respiratory distress and has been placed on nasal cannula and on IV Solu-Medrol. He denies chest pains or hemoptysis. Denies leg swelling. PAST HISTORY Has included a history of: 1. Atrial fibrillation 2. Permanent pacemaker placement. 3. He has had recurrent exacerbation of bronchitis in the past. 4. He has hyperlipidemia. PAST SURGICAL HISTORY Includes: 1. Hip replacement surgery on the right 2. Appendectomy remotely 3. Surgery on his left ear HABITS The patient smokes a half to one-pack per day and has done so for over 40 years. Alcohol use occasional. He rides a motor bike and states he was driving [place] which led to some of his symptoms of wheezing and congestion. MEDICATION LIST 1. Spiriva one capsule daily 2. Advair Diskus 50/50 one puffs b.i.d. 3. Cardizem 240 mg a day 4. Lovastatin 40 mg day ALLERGIES No drug allergies. FAMILY HISTORY Noncontributory REVIEW OF SYSTEMS The patient has had some weight loss. No headaches or blackouts. There are no urinary symptoms. He does have some leg swelling and denies any calf muscle pains. He has joint pains in his extremities and denies skin rash. He has some anxiety. The other system review is negative. PHYSICAL EXAMINATION This is an averagely built elderly man who is alert, face was plethoric. VITAL SIGNS: His blood pressure 130/70, pulse is 116, respirations 24, temperature 98.5. HEENT: Head normocephalic. Pupils are reactive and equal. Tongue was dry. Throat was mildly injected. Ears have no inflammation. NECK: No bruits with mild venous distension. Trachea midline. CHEST: Distant breath sounds with expiratory wheezes bilaterally with prolonged expirations with occasional basilar crackles, mostly the left. HEART: The heart sounds are irregular, S1-S2 with no definite murmur. ABDOMEN: The abdomen is soft and protuberant without masses. No organomegaly or tenderness. Bowel sounds are active. EXTREMITIES: Varicosities, minimal edema. Reflexes are 1+ with no gross motor deficits. NEUROLOGIC: Cranial nerves grossly intact. RECTAL: Exam is deferred. SKIN: No lesions. IMPRESSION 1. Acute exacerbation of chronic bronchitis 2. COPD with severe emphysema 3. Probable basilar pneumonia 4. Atrial fibrillation and ASHD PLAN The patient has been placed on Levaquin which we will continue at 750 mg IV daily, Solu-Medrol 60 mg IV q.6 h DuoNeb solution nebulizer q.i.d. and also Symbicort 160/4.5, two puffs twice a day. A chest x-ray to be repeated in the a.m. Sputum will be sent for Gram stain and culture and a pulmonary function study will be done at the bedside. The patient will be placed on O2 at three liters nasal cannula and BiPap at night between 09:00 p.m. and 06:00 a.m. Blood gases to be done. I will review and follow the case with you Dr. Ureña. Thank you for this consultation. MD BON White/ELIESER /6:42 PM /6:31 AM MICHAEL
--- NOTE | 2017-03-12 08:26 | PD.PN.STU ---
Subjective Remarks 66 year old gentleman with history of COPD who presented to the ED 03/10 with COPD exacerbation. Today he is feeling better and notes his work of breathing is less. His appetite is good. He did not sleep well last night. He has no acute complaints. Objective Vitals Vitals: O2 sat 95% General: Pleasant thin, well-developed patient, who appears comfortable Skin: No rashes, ecchymoses or lesions. Head: Atraumatic. Normocephalic. Oral mucosa is pink and moist. Eyes: No scleral icterus. No injection or drainage. Neck: Trachea midline. Cardiovascular: Irregularly irregular rhythm without murmurs, gallops, or rubs. Respiratory: Decreased breath sounds. Expiratory wheeze throughout but much improved from yesterday. No rales or rhonchi. Gastrointestinal: Abdomen soft, non-tender, nondistended. No hepato- splenomegaly. No guarding. Musculoskeletal: No lower extremity edema bilaterally. Neurological: Awake and alert. Motor grossly within normal limits. Normal speech. Vital Signs Date Time Temp Pulse Resp B/P Pulse Ox O2 Delivery O2 Flow Rate FiO2 03/12/17 07:39 95 Nasal Cannula 6.00 03/12/17 07:00 97.5 80 21 119/62 96 03/12/17 07:00 94 Nasal Cannula 6.00 03/12/17 06:00 82 22 115/79 93 03/12/17 06:00 82 03/12/17 05:54 97 Nasal Cannula 6.00 03/12/17 05:00 72 20 111/62 97 03/12/17 04:17 94 30 03/12/17 04:00 96.2 72 17 109/64 95 03/12/17 04:00 72 03/12/17 03:00 72 19 106/61 95 03/12/17 02:00 82 21 114/63 96 03/12/17 02:00 82 03/12/17 01:00 80 16 106/61 96 03/12/17 00:35 96 35 03/12/17 00:00 78 03/12/17 00:00 96.5 78 11 111/64 96 03/11/17 23:00 90 17 102/65 94 03/11/17 22:10 90 35 03/11/17 22:00 94 11 90/62 90 03/11/17 22:00 94 03/11/17 21:35 96 30 03/11/17 21:30 Bi-Pap 35 03/11/17 21:00 92 24 120/67 94 03/11/17 20:00 100 03/11/17 20:00 97.3 100 24 102/65 95 03/11/17 19:26 94 Nasal Cannula 6.00 03/11/17 19:00 92 24 126/69 94 03/11/17 18:00 111 03/11/17 18:00 98 37 123/72 91 03/11/17 17:00 96 23 93/61 96 03/11/17 16:00 97.7 92 27 110/61 94 03/11/17 16:00 92 03/11/17 15:00 92 03/11/17 15:00 92 25 105/56 92 03/11/17 14:00 96 33 129/69 94 03/11/17 14:00 96 03/11/17 13:00 90 28 99/54 92 03/11/17 13:00 90 03/11/17 12:00 97.7 92 25 103/54 93 03/11/17 12:00 92 03/11/17 11:00 90 31 107/50 94 03/11/17 10:00 94 20 96/49 92 03/11/17 09:00 98 03/11/17 09:00 98 23 108/62 90 I/O 03/11/17 03/11/17 03/11/17 03/12/17 03/12/17 03/12/17 07:00 15:00 23:00 07:00 15:00 23:00 Intake Total 1496 ml 650 ml Output Total 1325 ml 600 ml Balance 171 ml 50 ml Intake Oral 1440 ml IV Total 56 ml 650 ml Output Urine Total 1325 ml 600 ml # Voids 5 # Bowel Movements 0 Result Diagram: 03/11/17 0655 03/11/17 0655 A/P Assessment and Plan COPD exacerbation: Continue oxygen therapy via nasal canula Continue oral Levofloxacin Continue nebs Continue Solumedrol for diffuse wheezing O2 via NC Acute on chronic respiratory failure: Patient is satting well at 95% Hypercapnia improving from 66 to 53 Tobacco use: Discussed the importance of smoking cessation Afib: Continue diltiazem and aspirin Hyperlipidemia: Continue -statin therapy General weakness: Will likely need PT for deconditioning once he is able to tolerate DVT prophylaxis: Cayden Juan March 12, 2017 08:26 Boy Taylor MD March 12, 2017 11:51
[2017-03-12] MEDS: BUDESONIDE-FORMOTEROL 160/4.5 MCG INHALER INH SCH ×2 (08:28→21:56)
[2017-03-12] MEDS: ASPIRIN 325 MG TAB PO SCH (08:28)
[2017-03-12] MEDS: NICOTINE 21 MG/24 HR PATCH TD SCH (08:28)
[2017-03-12] MEDS: SODIUM CHLORIDE 0.9% FLUSH 10 ML FLUSH IV FLUSH SCH ×2 (08:29→21:54)
[2017-03-12] MEDS: REMOVE OLD PATCH T-DERMAL SCH (08:46)
--- NOTE | 2017-03-12 11:50 | HHI.PR ---
Subjective Remarks Patient states breathing is much improved placed on bibpap overnight by pulmonology denies fevers/chills denies cough denies cp sating 95% on nasal canula Objective Vitals Vital Signs Date Time Temp Pulse Resp B/P Pulse Ox O2 Delivery O2 Flow Rate FiO2 03/12/17 08:00 100 20 98/61 94 03/12/17 08:00 94 03/12/17 07:39 95 Nasal Cannula 6.00 03/12/17 07:00 97.5 80 21 119/62 96 03/12/17 07:00 94 Nasal Cannula 6.00 03/12/17 06:00 82 22 115/79 93 03/12/17 06:00 82 03/12/17 05:54 97 Nasal Cannula 6.00 03/12/17 05:00 72 20 111/62 97 03/12/17 04:17 94 30 03/12/17 04:00 96.2 72 17 109/64 95 03/12/17 04:00 72 03/12/17 03:00 72 19 106/61 95 03/12/17 02:00 82 21 114/63 96 03/12/17 02:00 82 03/12/17 01:00 80 16 106/61 96 03/12/17 00:35 96 35 03/12/17 00:00 78 03/12/17 00:00 96.5 78 11 111/64 96 03/11/17 23:00 90 17 102/65 94 03/11/17 22:10 90 35 03/11/17 22:00 94 11 90/62 90 03/11/17 22:00 94 03/11/17 21:35 96 30 03/11/17 21:30 Bi-Pap 35 03/11/17 21:00 92 24 120/67 94 03/11/17 20:00 100 03/11/17 20:00 97.3 100 24 102/65 95 03/11/17 19:26 94 Nasal Cannula 6.00 03/11/17 19:00 92 24 126/69 94 03/11/17 18:00 111 03/11/17 18:00 98 37 123/72 91 03/11/17 17:00 96 23 93/61 96 03/11/17 16:00 97.7 92 27 110/61 94 5/8/17 16:00 92 03/11/17 15:00 92 03/11/17 15:00 92 25 105/56 92 03/11/17 14:00 96 33 129/69 94 03/11/17 14:00 96 03/11/17 13:00 90 28 99/54 92 03/11/17 13:00 90 03/11/17 12:00 97.7 92 25 103/54 93 03/11/17 12:00 92 I/O 03/11/17 03/11/17 03/11/17 03/12/17 03/12/17 03/12/17 07:00 15:00 23:00 07:00 15:00 23:00 Intake Total 1496 ml 650 ml Output Total 1325 ml 600 ml Balance 171 ml 50 ml Intake Oral 1440 ml IV Total 56 ml 650 ml Output Urine Total 1325 ml 600 ml # Voids 5 # Bowel Movements 0 Result Diagram: 03/11/17 0655 03/11/17 0655 Imaging Last Impressions Chest X-Ray 03/11/17 0000 Signed Impressions: Service Date/Time: Saturday, March 11, 2017 08:04 - CONCLUSION: Hyperaeration with hazy opacity in the left midlung, unchanged likely representing scarring. Wilber Brown MD Objective Remarks GENERAL: This is a pleasant thin, well-developed patient, in moderate respiratory distress using accessory muscles of respiration. SKIN: No rashes, ecchymoses or lesions. Warm and dry. HEAD: Atraumatic. Normocephalic. EYES: No scleral icterus. No injection or drainage. NECK: Trachea midline. CARDIOVASCULAR: Irregularly irregular rhythm without murmurs, gallops, or rubs. RESPIRATORY: Decreased breath sounds. Diffuse expiratory wheezing bilaterally. No rales or rhonchi. GASTROINTESTINAL: Abdomen soft, non-tender, nondistended. No hepato- splenomegaly. No guarding. MUSCULOSKELETAL: No lower extremity edema bilaterally. NEUROLOGICAL: Awake and alert. Motor grossly within normal limits. Normal speech. Medications and IVs Current Medications Medications (Trade) Dose Ordered Sig/Lluvia Route Start Time Stop Time Status Last Admin (NS Flush) 2 ml BID IV FLUSH 03/10/17 21:00 03/12/17 08:29 (NS Flush) 2 ml UNSCH PRN IV FLUSH 03/10/17 11:00 (SoluMEDROL INJ) 60 mg Q6H IVP 03/10/17 12:00 03/12/17 04:42 (Habitrol 21 Mg Patch.24 Hr) 1 patch DAILY TD 03/10/17 12:00 03/12/17 08:28 (Lovenox Inj) 40 mg Q24H SQ 03/10/17 12:00 03/11/17 13:51 Miscellaneous Information 1 DAILY T-DERMAL 03/11/17 09:00 03/12/17 08:46 (Aspirin) 325 mg DAILY PO 03/11/17 09:00 03/12/17 08:28 (Cardizem Cd) 240 mg HS PO 03/10/17 21:00 03/11/17 21:02 (Pravachol) 40 mg HS PO 03/10/17 21:00 03/11/17 21:02 Budesonide/ Formoterol Fumarate 2 puff 2 puff Q12HR INH 03/11/17 21:00 03/12/17 08:28 (Levaquin 750 Mg Premix Inj) 150 ml @ 100 mls/hr Q24H IV 03/11/17 20:00 03/11/17 21:02 Miscellaneous Information Patient in critical care unit? Ass... [id number] .XX 03/11/17 22:00 (Chlorhexidine 2% Cloth) 3 pack DAILY@04 TOPICAL 03/12/17 04:00 03/16/17 04:01 03/12/17 04:00 (Chlorhexidine 2% Cloth) 3 pack UNSCH PRN TOPICAL 03/11/17 21:15 03/16/17 21:13 Urinary Catheter: No Vascular Central Line Catheter: No A/P Problem List: (1) Sepsis ICD Code: A41.9 Status: Acute (2) COPD exacerbation ICD Code: J44.1 Status: Acute (3) Acute bronchitis with COPD ICD Code: J44.0 Status: Acute (4) Acute on chronic respiratory failure ICD Code: J96.20 Status: Acute Assessment and Plan 66-year-old male with: Sepsis: Heart rate 106. RR 24. Lactic acid normal. Suspected source of infection acute bronchitis. -Antibiotics as below. -Blood cultures - negative x2 -Monitor CBC -Sepsis improving with resolving tachycardia and tachypnea. Will place on Iv fluids since patient's bp low. COPD exacerbation/Acute bronchitis/Acute on chronic resp failure: Patient normally on 2 L of oxygen increased to 3L recently. ABG on 2.5L with acidosis, pH of 7.29 and CO2 of 66 with hypoxia, O2 sat 88. Pollen likely triggered COPD exacerbation, but also also has a lot of yellow/green/brown sputum. Negative for influenza. -Continue Solu-Medrol 60 mg every 6 hours IV -Scheduled DuoNebs every 4 hours with albuterol every 2h prn -Levaquin 750 mg by mouth every 24 hours -O2 via NC -Sputum culture - pending -Hold home Spiriva and Advair for now 03/11 Ordered Lasix 40 mg IV once and Solumedrol 125 mg IV once and transfer to the intensive care unit. If still hypoxemic will try Bipap. repeat cxr ordered - showed hyperaeration with hazy opacity of the midlung unchanged from previous. Will follow repiratory status. 03/12 COPD exacerbation improving. Appreciate pulmonary recommendations. Continue IV Solu-Medrol at 60 mg IV every 6 hours, Levaquin IV, supplemental oxygen. Follow up pulmonary recommendations. A.Fib: Rate controlled and paced rhythm. Continue diltiazem and aspirin. HLD: continue statin DVT prevention: Lovenox Discharge Planning Continue to monitor in the intensive care unit for now. Problem Qualifiers (1) Acute on chronic respiratory failure: Qualified Code: J96.21 - Acute on chronic respiratory failure with hypoxia and hypercapnia Boy Taylor MD March 12, 2017 11:50
[2017-03-12] MEDS: ENOXAPARIN SODIUM 40 MG/0.4 ML SYRINGE SQ SCH (12:30)
--- NOTE | 2017-03-12 19:41 | HHI.PR ---
Subjective Remarks He is feeling better. Used Bipap last PM. No chest pain. Sputum is yellow. Objective Vital Signs Date Time Temp Pulse Resp B/P Pulse Ox O2 Delivery O2 Flow Rate FiO2 03/12/17 18:00 96 03/12/17 18:00 96 32 107/61 90 03/12/17 17:00 118 33 135/82 91 03/12/17 16:00 97.9 96 20 109/57 96 03/12/17 16:00 98 03/12/17 14:00 92 03/12/17 14:00 81 16 109/53 96 03/12/17 13:00 94 20 92/61 97 03/12/17 12:00 97.8 110 28 96/60 97 03/12/17 12:00 118 03/12/17 10:00 92 03/12/17 08:00 100 20 98/61 94 03/12/17 08:00 94 03/12/17 07:39 95 Nasal Cannula 6.00 03/12/17 07:00 97.5 80 21 119/62 96 03/12/17 07:00 94 Nasal Cannula 6.00 03/12/17 06:00 82 22 115/79 93 03/12/17 06:00 82 03/12/17 05:54 97 Nasal Cannula 6.00 03/12/17 05:00 72 20 111/62 97 03/12/17 04:17 94 30 03/12/17 04:00 96.2 72 17 109/64 95 03/12/17 04:00 72 03/12/17 03:00 72 19 106/61 95 03/12/17 02:00 82 21 114/63 96 03/12/17 02:00 82 03/12/17 01:00 80 16 106/61 96 03/12/17 00:35 96 35 03/12/17 00:00 78 03/12/17 00:00 96.5 78 11 111/64 96 03/11/17 23:00 90 17 102/65 94 03/11/17 22:10 90 35 03/11/17 22:00 94 11 90/62 90 03/11/17 22:00 94 03/11/17 21:35 96 30 03/11/17 21:30 Bi-Pap 35 03/11/17 21:00 92 24 120/67 94 03/11/17 20:00 100 03/11/17 20:00 97.3 100 24 102/65 95 I/O 03/11/17 03/11/17 03/11/17 03/12/17 03/12/17 03/12/17 07:00 15:00 23:00 07:00 15:00 23:00 Intake Total 1496 ml 650 ml 960 ml Output Total 1325 ml 600 ml 825 ml Balance 171 ml 50 ml 135 ml Intake Oral 1440 ml 960 ml IV Total 56 ml 650 ml 0 ml Output Urine Total 1325 ml 600 ml 825 ml # Voids 5 # Bowel Movements 0 0 Result Diagram: 03/11/17 0655 03/11/17 0655 Objective Remarks This is an averagely built elderly man who is alert, face was plethoric. HEENT: Head normocephalic. Pupils are reactive and equal. Tongue was dry. Throat was mildly injected. Ears have no inflammation. NECK: No bruits with mild venous distension. Trachea midline. CHEST: Distant breath sounds with expiratory wheezes bilaterally with prolonged expirations with occasional basilar crackles, mostly the left. HEART: The heart sounds are irregular, S1-S2 with no definite murmur. ABDOMEN: The abdomen is soft and protuberant without masses. No organomegaly or tenderness. Bowel sounds are active. EXTREMITIES: Varicosities, minimal edema. Reflexes are 1+ with no gross motor deficits. NEUROLOGIC: Cranial nerves grossly intact. RECTAL: Exam is deferred. SKIN: No lesions. Assessment and Plan Assessment and Plan IMPRESSION 1. Acute exacerbation of chronic bronchitis 2. COPD with severe emphysema 3. Probable basilar pneumonia 4. Atrial fibrillation and ASHD Plan : 1. Continue antibiotics. 2. Taper solumedrol to 40 mg IV q6h. 3. Wean O2 to 3 L. 4. Bipap at HS 12/[address] chest in am to Evaluate lung density. 6. PFT at Bedside Jordan Siddiqi MD March 12, 2017 19:41
[2017-03-12] MEDS: LEVOFLOXACIN 750 MG PREMIX INJ 150 ML IV SCH (20:48)
[2017-03-12] MEDS: DILTIAZEM-CD 240 MG CAP ER PO SCH (21:52)
[2017-03-12] MEDS: PRAVASTATIN SOD 40 MG TAB PO SCH (21:52)
--- NOTE | 2017-03-12 22:08 | RADHPO ---
EXAM DATE/TIME: 03/12/2017 20:25 [facility] COMPARISON: CT THORAX W CONTRAST, October 02, 2015, 15:11. CHEST SINGLE AP, March 11, 2017, 8:04. INDICATIONS : Evaluate for infiltrate. Hazy opacity in left mid lung. RADIATION DOSE: 7.86 CTDIvol (mGy) MEDICAL HISTORY : Chronic obstructive pulmonary disease. Congestive heart failure. SURGICAL HISTORY : Pacemaker. ENCOUNTER: Initial ACUITY: 1 day PAIN SCALE: 0/10 LOCATION: Left mid lung. TECHNIQUE: Volumetric scanning of the chest was performed. Using automated exposure control and adjustment of t he mA and/or kV according to patient size, radiation dose was kept as low as reasonably achievable to obtain optimal diagnostic quality images. FINDINGS: LUNGS: Biapical pleuroparenchymal disease is grossly stable. The left lung base, there is some pleural thick ening and parenchymal scarring which appears fairly similar to prior examination. No definite new par enchymal processes. Remainder of the right lung is grossly clear. PLEURAE: Mild left pleural thickening MEDIASTINUM: The heart and great vessels demonstrate no acute abnormality. There is no mediastinal or hilar lymph adenopathy. Coronary artery calcifications. AXILLAE: Within normal limits. No lymphadenopathy. MUSCULOSKELETAL: Within normal limits for patient age. MISCELLANEOUS: In the visualized upper abdomen, renal cysts are seen bilaterally. An incompletely seen greater than 4 cm abdominal aortic aneurysm is noted. CONCLUSION: Stable chest findings. Aortic aneurysm is incompletely seen. Elective followup evaluation recommended Prasad Bravo MD on March 12, 2017 at 22:00 Board Certified Radiologist. This report was verified electronically.
[2017-03-13] VITALS (30 sets, daily range): BP systolic 99–133; BP diastolic 52–95; PULSE 71–114; RESP 15–28; TEMP 97–98.2; O2SAT 91–96
[2017-03-13] MEDS: CHLORHEXIDINE GLUCONATE 2 % 1 PACK (2 CLOTHS)(taper/protocol) TOPICAL SCH (00:48)
[2017-03-13] MEDS: SODIUM CHLORIDE 0.9% FLUSH 10 ML FLUSH IV FLUSH PRN ×2 (00:55→06:35)
[2017-03-13] MEDS: methylPREDNISolone SOD SUCC 40 MG/1 ML VIAL IV SCH ×5 (00:55→23:13)
[2017-03-13] MEDS: RESP: ALBUTEROL 2.5 MG/IPRATROPIUM 0.5 MG NEB (SCH) INH ×6 (03:48→23:28)
[2017-03-13 05:10] LABS: AUTOMATED NEUTROPHIL # 9.6 TH/MM3 (1.8-7.7); BASOPHIL # 0.2 TH/MM3 (0-0.2); BASOPHIL % 1.5 % (0.0-2.0); HEMATOCRIT 39.8 % (39.0-51.0); HEMO FLAGS DIFF FINAL; LYMPH % 2.9 % (9.0-44.0); LYMPHOCYTE # 0.3 TH/MM3 (1.0-4.8); MEAN CELL VOLUME 87.3 FL (80.0-100.0); MEAN CORPUSCULAR HEMOGLOBIN 28.2 PG (27.0-34.0); MEAN CORPUSCULAR HGB CONC 32.3 % (32.0-36.0); NEUT % 91.6 % (16.0-70.0); PLATELET COUNT 188 TH/MM3 (150-450); RED BLOOD COUNT 4.56 MIL/MM3 (4.50-5.90); WHITE BLOOD COUNT 10.5 TH/MM3 (4.0-11.0)
[2017-03-13 05:29] LABS: CHLORIDE 98 MEQ/L (98-107); SODIUM (NA) 141 MEQ/L (136-145)
[2017-03-13 06:14] LABS: ALKALINE PHOSPHATASE 47 U/L (45-117); ALT (GPT) 20 U/L (12-78); ANION GAP 7 MEQ/L (5-15); AST (GOT) 17 U/L (15-37); BLOOD UREA NITROGEN 33 MG/DL (7-18); GLOMERULAR FILTRATION RATE 67 ML/MIN (>89); MAGNESIUM 2.3 MG/DL (1.5-2.5); TOTAL BILIRUBIN ADULT 0.2 MG/DL (0.2-1.0)
[2017-03-13] MEDS: REMOVE OLD PATCH T-DERMAL SCH (09:00)
[2017-03-13] MEDS: BUDESONIDE-FORMOTEROL 160/4.5 MCG INHALER INH SCH ×2 (09:08→21:00)
[2017-03-13] MEDS: NICOTINE 21 MG/24 HR PATCH TD SCH (09:09)
[2017-03-13] MEDS: SODIUM CHLORIDE 0.9% FLUSH 10 ML FLUSH IV FLUSH SCH ×2 (09:09→23:38)
[2017-03-13] MEDS: ASPIRIN 325 MG TAB PO SCH (09:09)
--- NOTE | 2017-03-13 09:30 | PD.PN.STU ---
Subjective Remarks No complaints today SOB improving Work of breathing improving Weaned steroid this AM Appetite good Objective Vitals Vitals: O2 sat 95% General: Pleasant thin, well-developed patient, who appears comfortable Skin: No rashes, ecchymoses or lesions. Head: Atraumatic. Normocephalic. Oral mucosa is pink and moist. Eyes: No scleral icterus. No injection or drainage. Neck: Trachea midline. Cardiovascular: No JVD. Irregularly irregular rhythm without murmurs, gallops, or rubs. Respiratory: Minimal accessory muscle use. Decreased breath sounds. Expiratory wheeze throughout but much improved from yesterday. No rales or rhonchi. Gastrointestinal: Abdomen soft, non-tender, nondistended. No hepato- splenomegaly. No guarding. Musculoskeletal: No lower extremity edema bilaterally. Neurological: Awake and alert. Motor grossly within normal limits. Normal speech. Vital Signs Date Time Temp Pulse Resp B/P Pulse Ox O2 Delivery O2 Flow Rate FiO2 03/13/17 07:57 91 Nasal Cannula 3.00 03/13/17 06:17 71 03/13/17 06:02 84 24 112/57 92 03/13/17 06:00 82 03/13/17 05:45 95 Nasal Cannula 3.00 03/13/17 05:45 92 Nasal Cannula 3.00 03/13/17 05:02 78 17 114/56 96 03/13/17 04:02 97.0 76 16 114/60 93 03/13/17 04:00 92 Bi-Pap 30 03/13/17 04:00 82 03/13/17 03:46 93 30 03/13/17 03:02 86 18 101/56 92 03/13/17 02:51 92 Nasal Cannula 3.00 03/13/17 02:02 84 18 110/52 95 03/13/17 02:00 100 03/13/17 01:02 92 15 121/69 93 03/13/17 00:02 97.7 92 21 121/72 95 03/13/17 00:02 92 03/13/17 00:00 94 Bi-Pap 30 03/13/17 00:00 98 03/12/17 23:45 95 30 03/12/17 23:30 94 Bi-Pap 30 03/12/17 23:02 96 22 123/74 94 03/12/17 23:02 96 03/12/17 22:02 100 03/12/17 22:02 100 23 108/69 95 03/12/17 22:00 94 03/12/17 21:26 100 36 122/60 93 03/12/17 21:26 100 03/12/17 21:02 100 03/12/17 21:02 100 19 127/66 03/12/17 20:30 93 Nasal Cannula 3.00 03/12/17 20:00 94 03/12/17 20:00 95 Nasal Cannula 4.00 03/12/17 20:00 98.0 94 22 118/60 94 03/12/17 19:50 94 Nasal Cannula 3.00 03/12/17 19:37 96 Nasal Cannula 4.00 03/12/17 19:00 92 25 122/67 95 03/12/17 18:00 96 03/12/17 18:00 96 32 107/61 90 03/12/17 17:00 118 33 135/82 91 03/12/17 16:00 97.9 96 20 109/57 96 03/12/17 16:00 98 03/12/17 14:00 92 03/12/17 14:00 81 16 109/53 96 03/12/17 13:00 94 20 92/61 97 03/12/17 12:00 97.8 110 28 96/60 97 03/12/17 12:00 118 03/12/17 10:00 92 I/O 03/12/17 03/12/17 03/12/17 03/13/17 03/13/17 03/13/17 06:59 14:59 22:59 06:59 14:59 22:59 Intake Total 650 ml 960 ml 1150 ml 240 ml Output Total 600 ml 825 ml 1000 ml 900 ml Balance 50 ml 135 ml 150 ml -660 ml Intake Oral 960 ml 1000 ml 240 ml IV Total 650 ml 0 ml 150 ml Output Urine Total 600 ml 825 ml 1000 ml 900 ml # Voids 4 # Bowel Movements 0 0 0 Result Diagram: 03/13/17 0427 03/13/17426 A/P Assessment and Plan COPD exacerbation: Continue oxygen therapy via nasal canula Continue IV Levofloxacin Continue nebs Weaned Solumedrol to 40 mg O2 via NC Acute on chronic respiratory failure: Patient is satting well at 95% Hypercapnia improving from 66 to 53 Tobacco use: Discussed the importance of smoking cessation Afib: Continue diltiazem and aspirin Hyperlipidemia: Continue -statin therapy General weakness: Will likely need PT for deconditioning once he is able to tolerate DVT prophylaxis: Cayden Juan M3 March 13, 2017 09:30
[2017-03-13] MEDS: THEOPHYLLINE 200 MG EXTENDED RELEASE CAP PO SCH (11:47)
[2017-03-13] MEDS: ENOXAPARIN SODIUM 40 MG/0.4 ML SYRINGE SQ SCH (11:48)
[2017-03-13 16:17] LABS: HEMOGLOBIN A1a 1.2 %; HEMOGLOBIN A1b 1.6 %; HEMOGLOBIN Ao 83.6 %; HEMOGLOBIN LA1C 2.5 %; HEMOGLOBIN P3 6.1 %
--- NOTE | 2017-03-13 18:00 | HHI.PR ---
Subjective Remarks He is feeling better. Used Bipap last PM. does not like Bipap No fever. Sats 96 on N/C 3 L Objective Vital Signs Date Time Temp Pulse Resp B/P Pulse Ox O2 Delivery O2 Flow Rate FiO2 03/13/17 16:00 97 03/13/17 16:00 95 Nasal Cannula 3.00 03/13/17 16:00 88 21 94 03/13/17 15:34 114 28 101/60 93 03/13/17 14:00 93 03/13/17 13:02 100 21 99/66 94 03/13/17 12:02 98.2 90 19 118/68 94 03/13/17 12:00 95 Nasal Cannula 3.00 03/13/17 12:00 95 03/13/17 11:02 92 18 103/66 94 03/13/17 10:02 94 24 113/61 94 03/13/17 10:00 94 03/13/17 09:02 96 20 110/63 93 03/13/17 08:02 98.0 84 18 107/67 91 03/13/17 08:00 83 03/13/17 08:00 95 Nasal Cannula 3.00 03/13/17 07:57 91 Nasal Cannula 3.00 03/13/17 07:02 84 28 106/68 92 03/13/17 06:17 71 03/13/17 06:02 84 24 112/57 92 03/13/17 06:00 82 03/13/17 05:45 95 Nasal Cannula 3.00 03/13/17 05:45 92 Nasal Cannula 3.00 03/13/17 05:02 78 17 114/56 96 03/13/17 04:02 97.0 76 16 114/60 93 03/13/17 04:00 92 Bi-Pap 30 03/13/17 04:00 82 03/13/17 03:46 93 30 03/13/17 03:02 86 18 101/56 92 03/13/17 02:51 92 Nasal Cannula 3.00 03/13/17 02:02 84 18 110/52 95 03/13/17 02:00 100 03/13/17 01:02 92 15 121/69 93 03/13/17 00:02 97.7 92 21 121/72 95 03/13/17 00:02 92 03/13/17 00:00 94 Bi-Pap 30 03/13/17 00:00 98 03/12/17 23:45 95 30 03/12/17 23:30 94 Bi-Pap 30 03/12/17 23:02 96 22 123/74 94 03/12/17 23:02 96 03/12/17 22:02 100 03/12/17 22:02 100 23 108/69 95 03/12/17 22:00 94 03/12/17 21:26 100 36 122/60 93 03/12/17 21:26 100 03/12/17 21:02 100 03/12/17 21:02 100 19 127/66 03/12/17 20:30 93 Nasal Cannula 3.00 03/12/17 20:00 94 03/12/17 20:00 95 Nasal Cannula 4.00 03/12/17 20:00 98.0 94 22 118/60 94 03/12/17 19:50 94 Nasal Cannula 3.00 03/12/17 19:37 96 Nasal Cannula 4.00 03/12/17 19:00 92 25 122/67 95 03/12/17 18:00 96 03/12/17 18:00 96 32 107/61 90 I/O 03/12/17 03/12/17 03/12/17 03/13/17 03/13/17 03/13/17 06:59 14:59 22:59 06:59 14:59 22:59 Intake Total 650 ml 960 ml 1150 ml 240 ml 740 ml Output Total 600 ml 825 ml 1000 ml 900 ml 1025 ml Balance 50 ml 135 ml 150 ml -660 ml -285 ml Intake Oral 960 ml 1000 ml 240 ml 740 ml IV Total 650 ml 0 ml 150 ml Output Urine Total 600 ml 825 ml 1000 ml 900 ml 1025 ml # Voids 4 # Bowel Movements 0 0 0 Result Diagram: 03/13/1742603/13/17426 Objective Remarks This is an averagely built elderly man who is alert, face was plethoric. HEENT: Head normocephalic. Pupils are reactive and equal. Tongue was dry. Throat was mildly injected. Ears have no inflammation. NECK: No bruits with mild venous distension. Trachea midline. CHEST: Distant breath sounds with occ wheezes bilaterally with prolonged expirations with occasional basilar crackles. HEART: The heart sounds are irregular, S1-S2 with no definite murmur. ABDOMEN: The abdomen is soft and protuberant without masses. No organomegaly or tenderness. Bowel sounds are active. EXTREMITIES: Varicosities, minimal edema. Reflexes are 1+ with no gross motor deficits. NEUROLOGIC: Cranial nerves grossly intact. RECTAL: Exam is deferred. SKIN: No lesions. Assessment and Plan Assessment and Plan IMPRESSION 1. Acute exacerbation of chronic bronchitis 2. COPD with severe emphysema 3. Probable basilar pneumonia 4. Atrial fibrillation and ASHD Plan : 1. Continue antibiotics. 2. Taper solumedrol to 40 mg IV q8h. 3. Wean O2 to 3 L. 4. D/C Bipap. 5. Transfer to tele 6. PFT at Bedside 7. CBC,BMP in am Jordan Siddiqi MD March 13, 2017 18:00
[2017-03-13] MEDS: PRAVASTATIN SOD 40 MG TAB PO SCH (23:12)
[2017-03-13] MEDS: DILTIAZEM-CD 240 MG CAP ER PO SCH (23:13)
[2017-03-13] MEDS: LEVOFLOXACIN 750 MG PREMIX INJ 150 ML IV SCH (23:38)
[2017-03-14] VITALS (10 sets, daily range): BP systolic 104–151; BP diastolic 60–91; PULSE 76–111; RESP 18–22; TEMP 95.8–98; O2SAT 88–96
[2017-03-14] MEDS: RESP: ALBUTEROL 2.5 MG/IPRATROPIUM 0.5 MG NEB (SCH) INH ×3 (03:15→11:11)
[2017-03-14] MEDS: CHLORHEXIDINE GLUCONATE 2 % 1 PACK (2 CLOTHS)(taper/protocol) TOPICAL SCH (04:00)
[2017-03-14 06:29] LABS: HEMATOCRIT 38.6 % (39.0-51.0); MEAN CELL VOLUME 86.2 FL (80.0-100.0); MEAN CORPUSCULAR HEMOGLOBIN 29.2 PG (27.0-34.0); MEAN CORPUSCULAR HGB CONC 33.9 % (32.0-36.0); PLATELET COUNT 194 TH/MM3 (150-450); RED BLOOD COUNT 4.48 MIL/MM3 (4.50-5.90); RED CELL DISTRIBUTION WIDTH 14.3 % (11.6-17.2); REVIEW FLAG FINAL
[2017-03-14 06:44] LABS: POTASSIUM 4.3 MEQ/L (3.5-5.1)
[2017-03-14 06:49] LABS: BICARBONATE 39.6 MEQ/L (21.0-32.0)
[2017-03-14] MEDS: methylPREDNISolone SOD SUCC 40 MG/1 ML VIAL IV SCH ×2 (06:52→15:04)
[2017-03-14] MEDS: REMOVE OLD PATCH T-DERMAL SCH (09:00)
[2017-03-14] MEDS: SODIUM CHLORIDE 0.9% FLUSH 10 ML FLUSH IV FLUSH SCH ×2 (10:07→21:00)
[2017-03-14] MEDS: BUDESONIDE-FORMOTEROL 160/4.5 MCG INHALER INH SCH ×2 (10:07→21:07)
[2017-03-14] MEDS: THEOPHYLLINE 200 MG EXTENDED RELEASE CAP PO SCH (10:07)
[2017-03-14] MEDS: ASPIRIN 325 MG TAB PO SCH (10:07)
[2017-03-14] MEDS: NICOTINE 21 MG/24 HR PATCH TD SCH (10:14)
--- NOTE | 2017-03-14 11:28 | HHI.PR ---
Subjective Remarks Breathing better On O2 nasal cannula Afebrile Objective Vitals Vital Signs Date Time Temp Pulse Resp B/P Pulse Ox O2 Delivery O2 Flow Rate FiO2 03/14/17 11:18 Nasal Cannula 3.00 30 03/14/17 08:00 96.0 76 18 142/76 95 03/14/17 07:53 92 Nasal Cannula 3.00 03/14/17 04:00 98.0 82 22 104/60 96 03/14/17 00:00 97.8 111 22 133/85 93 03/13/17 20:00 Nasal Cannula 3.00 30 03/13/17 20:00 97.3 95 18 133/95 95 03/13/17 19:30 94 Nasal Cannula 3.00 03/13/17 16:00 97 03/13/17 16:00 95 Nasal Cannula 3.00 03/13/17 16:00 88 21 94 03/13/17 15:34 114 28 101/60 93 03/13/17 14:00 93 03/13/17 13:02 100 21 99/66 94 03/13/17 12:02 98.2 90 19 118/68 94 03/13/17 12:00 95 Nasal Cannula 3.00 03/13/17 12:00 95 I/O 03/13/17 03/13/17 03/13/17 03/14/17 03/14/17 03/14/17 06:59 14:59 22:59 06:59 14:59 22:59 Intake Total 240 ml 740 ml 350 ml 600 ml Output Total 900 ml 1025 ml 900 ml Balance -660 ml -285 ml 350 ml -300 ml Intake Oral 240 ml 740 ml 350 ml 600 ml Output Urine Total 900 ml 1025 ml 900 ml # Voids 4 # Bowel Movements 0 0 Result Diagram: 03/14/1713 03/14/17 0613 Objective Remarks GENERAL: This is a well-nourished, well-developed patient, in no apparent distress. CARDIOVASCULAR: Regular rate and rhythm without murmurs, gallops, or rubs. RESPIRATORY: Positive wheezes more appreciated on the left, diminish breath sounds bilaterally. GASTROINTESTINAL: Abdomen soft, non-tender,nondistended. Normal active bowel sounds MUSCULOSKELETAL: Extremities without clubbing, cyanosis, or edema. NEURO: Alert & Oriented x4 to person, place, time, situation. Moves all ext x4 A/P Problem List: (1) COPD exacerbation ICD Code: J44.1 Status: Acute (2) Acute bronchitis with COPD ICD Code: J44.0 Status: Acute (3) Acute on chronic respiratory failure ICD Code: J96.20 Status: Acute Assessment and Plan Acute exacerbation of chronic colitis Acute on chronic respiratory failure COPD exacerbation Probable basilar pneumonia Atrial fibrillation managed with Cardizem and aspirin DVT prophylaxis Plan: Continue O2, DuoNeb, Solu-Medrol taper I covered button maker Pulmonology consulted appreciated their input BiPAP when necessary PFT at bedside Continue Levaquin Monitor electrolyte CBC BMP Lovenox for DVT prophylaxis Problem Qualifiers (1) Acute on chronic respiratory failure: Qualified Code: J96.21 - Acute on chronic respiratory failure with hypoxia and hypercapnia Dorinda Darling MD March 14, 2017 11:28
[2017-03-14] MEDS: RESP: ALBUTEROL 2.5 MG/3 ML NEB (PRN) INH ×2 (14:05→16:12)
[2017-03-14] MEDS: ENOXAPARIN SODIUM 40 MG/0.4 ML SYRINGE SQ SCH (15:04)
--- NOTE | 2017-03-14 18:03 | HHI.PR ---
Subjective Remarks Improved . Off Bipap Constipated,and C/o Abdominal discomfort. on N/C 3 L Objective Vital Signs Date Time Temp Pulse Resp B/P Pulse Ox O2 Delivery O2 Flow Rate FiO2 03/14/17 17:05 Nasal Cannula 3.00 30 03/14/17 16:00 95.8 90 22 138/91 94 03/14/17 14:15 95 Nasal Cannula 3.00 03/14/17 14:07 88 Nasal Cannula 3.00 03/14/17 13:05 Nasal Cannula 3.00 30 03/14/17 12:00 95.8 88 21 143/82 94 03/14/17 11:18 Nasal Cannula 3.00 30 03/14/17 08:00 96.0 76 18 142/76 95 03/14/17 07:53 92 Nasal Cannula 3.00 03/14/17 04:00 98.0 82 22 104/60 96 03/14/17 00:00 97.8 111 22 133/85 93 03/13/17 20:00 Nasal Cannula 3.00 30 03/13/17 20:00 97.3 95 18 133/95 95 03/13/17 19:30 94 Nasal Cannula 3.00 I/O 03/13/17 03/13/17 03/13/17 03/14/17 03/14/17 03/14/17 07:00 15:00 23:00 07:00 15:00 23:00 Intake Total 240 ml 740 ml 350 ml 600 ml Output Total 900 ml 1025 ml 900 ml Balance -660 ml -285 ml 350 ml -300 ml Intake Oral 240 ml 740 ml 350 ml 600 ml Output Urine Total 900 ml 1025 ml 900 ml # Voids 4 2 # Bowel Movements 0 0 Result Diagram: 03/14/17 0613 03/14/17 0613 Objective Remarks This is an averagely built elderly man who is alert, and oriented HEENT: Head normocephalic. Pupils are reactive and equal. Tongue was dry. Throat was clear. Ears no inflammation. NECK: No bruits with mild venous distension. Trachea midline. CHEST: Distant breath sounds with occ wheezes bilaterally with prolonged expirations with occasional basilar crackles. HEART: The heart sounds are irregular, S1-S2 with no definite murmur. ABDOMEN: The abdomen is soft and protuberant without masses. No organomegaly or tenderness. Bowel sounds are active. EXTREMITIES: Varicosities, minimal edema. Reflexes are 1+ with no gross motor deficits. NEUROLOGIC: Cranial nerves grossly intact. RECTAL: Exam is deferred. SKIN: No lesions. Assessment and Plan Assessment and Plan IMPRESSION 1. Acute exacerbation of chronic bronchitis 2. COPD with severe emphysema 3. Probable basilar pneumonia 4. Atrial fibrillation and ASHD Plan : 1. Continue antibiotics. 2. D/C solumedrol 3. Wean O2 to 3 L. 4. Add predniosne 20mg BID 5. Transfer to tele 6. Duoneb nebs qid 7. Symbicort 160/4.5 mcg , 2puffs bid 8. Chest X ray Jordan Siddiqi MD March 14, 2017 18:03
[2017-03-14] MEDS: RESP: ALBUTEROL 2.5 MG/IPRATROPIUM 0.5 MG NEB (SCH) NEB ×2 (19:31→23:12)
[2017-03-14] MEDS: LEVOFLOXACIN 750 MG PREMIX INJ 150 ML IV SCH (21:07)
[2017-03-14] MEDS: PRAVASTATIN SOD 40 MG TAB PO SCH (21:07)
[2017-03-14] MEDS: predniSONE 20 MG TAB PO SCH (21:07)
[2017-03-14] MEDS: DILTIAZEM-CD 240 MG CAP ER PO SCH (21:07)
[2017-03-15] VITALS: BP 121/50; PULSE 78; RESP 18; TEMP 97.1; O2SAT 93
[2017-03-15] MEDS: RESP: ALBUTEROL 2.5 MG/IPRATROPIUM 0.5 MG NEB (SCH) NEB ×4 (03:24→16:03)
[2017-03-15] MEDS: CHLORHEXIDINE GLUCONATE 2 % 1 PACK (2 CLOTHS)(taper/protocol) TOPICAL SCH (03:41)
--- NOTE | 2017-03-15 06:06 | RADHPO ---
EXAM DATE/TIME: 03/15/2017 05:52 [facility] COMPARISON: CHEST SINGLE AP, March 11, 2017, 8:04. INDICATIONS : Shortness of breath; respiratory distress. MEDICAL HISTORY : Chronic obstructive pulmonary disease. Afib. Coronary artery disease. SURGICAL HISTORY : Pacemaker. Appendectomy. ENCOUNTER: Subsequent ACUITY: 4 - 6 days PAIN SCORE: 0/10 LOCATION: Bilateral chest FINDINGS: There continues to be hyperaeration of the lung bush. There is stable peripheral changes in the lef t midlung. No new infiltrates are seen. There are no pleural effusions. Heart size is stable. No evid ence of pneumothorax. Pacemaker on left side. CONCLUSION: No significant interval change. Neville Pablo MD on March 15, 2017 at 6:04 Board Certified Radiologist. This report was verified electronically.
[2017-03-15 07:30] VITALS: O2SAT 93
[2017-03-15 08:00] VITALS: BP 114/70; PULSE 81; RESP 18; TEMP 96.5; O2SAT 93
[2017-03-15] MEDS: REMOVE OLD PATCH T-DERMAL SCH (09:00)
[2017-03-15] MEDS: NICOTINE 21 MG/24 HR PATCH TD SCH (09:24)
[2017-03-15] MEDS: ASPIRIN 325 MG TAB PO SCH (09:25)
[2017-03-15] MEDS: THEOPHYLLINE 200 MG EXTENDED RELEASE CAP PO SCH (09:25)
[2017-03-15] MEDS: predniSONE 20 MG TAB PO SCH (09:25)
[2017-03-15] MEDS: BUDESONIDE-FORMOTEROL 160/4.5 MCG INHALER INH SCH (09:25)
[2017-03-15] MEDS: SODIUM CHLORIDE 0.9% FLUSH 10 ML FLUSH IV FLUSH SCH (09:26)
[2017-03-15] MEDS ORDERED: LEVA750T PO (10:24)
[2017-03-15] MEDS ORDERED: PRED20 PO (10:27)
--- NOTE | 2017-03-15 11:11 | HHI.PR ---
Subjective Remarks Patient stable on oxygen afebrile, Solu-Medrol switched to prednisone by pulmonology Will discharge home to follow up with cosmetics and toiletries salesperson as an outpatient Objective Vitals Vital Signs Date Time Temp Pulse Resp B/P Pulse Ox O2 Delivery O2 Flow Rate FiO2 03/15/17 08:00 96.5 81 18 114/70 93 03/15/17 07:30 93 Nasal Cannula 3.00 03/15/17 04:22 93 3.00 03/15/17 00:45 93 Nasal Cannula 3.00 03/15/17 00:00 97.1 78 18 121/50 93 03/14/17 21:27 93 Nasal Cannula 3.00 03/14/17 20:00 96.6 86 18 151/85 93 03/14/17 19:32 93 Nasal Cannula 3.00 03/14/17 17:05 Nasal Cannula 3.00 30 03/14/17 16:00 95.8 90 22 138/91 94 03/14/17 14:15 95 Nasal Cannula 3.00 03/14/17 14:07 88 Nasal Cannula 3.00 03/14/17 13:05 Nasal Cannula 3.00 30 03/14/17 12:00 95.8 88 21 143/82 94 03/14/17 11:18 Nasal Cannula 3.00 30 I/O 03/14/17 03/14/17 03/14/17 03/15/17 03/15/17 03/15/17 07:00 15:00 23:00 07:00 15:00 23:00 Intake Total 600 ml 240 ml Output Total 900 ml 400 ml Balance -300 ml -160 ml Intake Oral 600 ml 240 ml Output Urine Total 900 ml 400 ml # Voids 2 1 # Bowel Movements 0 0 Result Diagram: 03/14/1761203/14/17 0613 Objective Remarks GENERAL: This is a well-nourished, well-developed patient, in no apparent distress. CARDIOVASCULAR: Regular rate and rhythm without murmurs, gallops, or rubs. RESPIRATORY: Positive wheezes more appreciated on the left, diminish breath sounds bilaterally. GASTROINTESTINAL: Abdomen soft, non-tender,nondistended. Normal active bowel sounds MUSCULOSKELETAL: Extremities without clubbing, cyanosis, or edema. NEURO: Alert & Oriented x4 to person, place, time, situation. Moves all ext x4 A/P Problem List: (1) COPD exacerbation ICD Code: J44.1 Status: Acute (2) Acute bronchitis with COPD ICD Code: J44.0 Status: Acute (3) Acute on chronic respiratory failure ICD Code: J96.20 Status: Acute Assessment and Plan Acute exacerbation of chronic colitis Acute on chronic respiratory failure COPD exacerbation Probable basilar pneumonia Atrial fibrillation managed with Cardizem and aspirin DVT prophylaxis Plan: Continue O2, DuoNeb, Solu-Medrol switched to prednisone, will DC home and follow up as an outpatient with pulmonology Pulmonology following BiPAP when necessary PFT at bedside Continue Levaquin Monitor electrolyte CBC BMP Lovenox for DVT prophylaxis Problem Qualifiers (1) Acute on chronic respiratory failure: Qualified Code: J96.21 - Acute on chronic respiratory failure with hypoxia and hypercapnia Dorinda Darling MD March 15, 2017 11:11
[2017-03-15 12:00] VITALS: BP 139/74; PULSE 93; RESP 18; TEMP 96.2; O2SAT 93
--- NOTE | 2017-03-15 13:13 | HHI.DS ---
Discharge Summary Admission Date March 10, 2017 at 10:52 Discharge Date: March 15, 2017 Admitting Diagnosis COPD Exacerbation, hypoxia (1) COPD exacerbation ICD Code: J44.1 (2) Acute bronchitis with COPD ICD Code: J44.0 (3) Acute on chronic respiratory failure ICD Code: J96.20 Procedures None Brief History - From Admission 66-year-old male with history of atrial fibrillation with pacemaker and hyperlipidemia presents with complaint of "emphysema". Patient states the other day he went on a bike ride and was exposed to a lot of pollen. He states he became worse and worse and "could hardly breathe". Admits to coughing and states he is coughing up quite a bit of phlegm ranging from yellow to brown to green in color. Admits to chills once in a while. Admits to wheezing. States he has tightness in his chest but denies chest pain otherwise. Patient states he uses 2 L oxygen chronically has had 2 increase it to 3 L in the past couple of weeks. He does not have a blogs manager although he has seen once in the past. He states his PCP Dr. Hay takes care of his COPD medications. Denies any dizziness. States he "vomited" up some mucus the other day. Denies any diarrhea. CBC/BMP: 03/14/17 0613 03/14/17 0613 Significant Findings Laboratory Tests Test 03/13/17 03/14/17 04:27 06:13 Hemoglobin 12.9 GM/DL (13.0-17.0) Neutrophils (%) (Auto) 91.6 % (16.0-70.0) Lymphocytes (%) (Auto) 2.9 % (9.0-44.0) Neutrophils # (Auto) 9.6 TH/MM3 (1.8-7.7) Lymphocytes # (Auto) 0.3 TH/MM3 (1.0-4.8) Carbon Dioxide Level 36.0 MEQ/L 39.6 MEQ/L (21.0-32.0) (21.0-32.0) Blood Urea Nitrogen 33 MG/DL (7-18) 29 MG/DL (7-18) Estimat Glomerular Filtration 67 ML/MIN (>89) 67 ML/MIN (>89) Rate Random Glucose 147 MG/DL 142 MG/DL (74-106) (74-106) Total Protein 6.3 GM/DL (6.4-8.2) Albumin 2.8 GM/DL (3.4-5.0) Red Blood Count 4.48 MIL/MM3 (4.50-5.90) Hematocrit 38.6 % (39.0-51.0) PE at Discharge GENERAL: This is a well-nourished, well-developed patient, in no apparent distress. CARDIOVASCULAR: Regular rate and rhythm without murmurs, gallops, or rubs. RESPIRATORY: Positive wheezes more appreciated on the left, diminish breath sounds bilaterally. GASTROINTESTINAL: Abdomen soft, non-tender,nondistended. Normal active bowel sounds MUSCULOSKELETAL: Extremities without clubbing, cyanosis, or edema. NEURO: Alert & Oriented x4 to person, place, time, situation. Moves all ext x4 Hospital Course 66 years old male with history of COPD on home O2, presented with worsening symptoms and increase consumption of O2 at home, patient has COPD exacerbation treated with iv Solu-Medrol DuoNeb oxygen, hematology consulted, PFT bedside, Solu-Medrol switched to prednisone tapering and patient stabilized and discharge home to follow up with blogs manager as an outpatient Pt Condition on Discharge: Fair Discharge Disposition: Discharge Home Discharge Time: <= 30 minutes Discharge Instructions DIET: Follow Instructions for: Heart Healthy Diet Activities you can perform: Weight Bearing as Manuel Follow up Referrals: Pulmonology - 10 Days with Jordan Siddiqi MD New Medications: Levofloxacin (Levaquin) 750 Mg Tab 750 MG PO DAILY Infection #3 Ref 0 TAB Prednisone (Prednisone) 20 Mg Tab 20 MG PO BID copd Days 12 Ref 0 TAB Continued Medications: Aspirin (Aspirin) 325 Mg Tab 325 MG PO DAILY #30 Ref 0 TAB Diltiazem CD 24 HR (Diltiazem CD 24 HR) 240 Mg Caper 240 MG PO DAILY #30 Ref 0 CAP Fluticasone-Salmeterol Inh (Advair Diskus Inh) 250-50 Mcg/Blist Aer 1 PUFF INH BID Rinse mouth after use. #1 Ref 0 INHALER Lovastatin (Lovastatin) 40 Mg Tab 40 MG PO HS Cholesterol Management #30 Ref 0 TAB Tiotropium Inh (Spiriva Handihaler) 18 Mcg Cap 18 MCG INH DAILY 1 capsule = 18 mcg COPD #30 Ref 0 CAP Dorinda Darling MD March 15, 2017 13:13
[2017-03-15 16:00] VITALS: BP 118/77; PULSE 94; RESP 18; TEMP 96.7; O2SAT 95
== END 2017-03-15 17:41 | disposition home or self-care (01) | DRG 871 ==
LOC: PHED 07:53 → PHEDA 10:28 → OBSVTOIN 10:52 → PH3B 11:47 → PHICU 03-11 08:05 → PH3A 03-13 18:26
PROVIDERS: ADMIT Hospitalist; ATTEND Hospitalist
DX: A41.9 Sepsis, unspecified organism (principal); J18.9 Pneumonia, unspecified organism; J96.21 Acute and chronic respiratory failure with hypoxia; E87.2 Acidosis; I48.91 Unspecified atrial fibrillation; Z99.81 Dependence on supplemental oxygen; J96.22 Acute and chronic respiratory failure with hypercapnia; J44.0 Chronic obstructive pulmonary disease with (acute) lower respiratory infection; J44.1 Chronic obstructive pulmonary disease with (acute) exacerbation; E78.5 Hyperlipidemia, unspecified; I10 Essential (primary) hypertension; I25.10 Atherosclerotic heart disease of native coronary artery without angina pectoris; J20.9 Acute bronchitis, unspecified; K52.9 Noninfective gastroenteritis and colitis, unspecified; K59.00 Constipation, unspecified; F17.210 Nicotine dependence, cigarettes, uncomplicated; Z95.0 Presence of cardiac pacemaker; Z96.641 Presence of right artificial hip joint
CPT/HCPCS: 36600; 71010; 71250; 80048; 80053; 82805; 83036; 83605; 83735; 84100; 85025; 85027; 85610; 85730; 87040; 87070; 87205; 87641; 87804; 93005; 94002; 94003; 94640; 94664; 94667; 94668; 96361; 96374; J1650; J1940; J1956; J2920; J2930; J7030; J7512; J7613

== ENCOUNTER 2017-10-04 08:20 | Inpatient (IN) | payer OTHER, MEDICARE ==
[~2017-10-04] VITALS: Ht 188 cm; Wt 75.2 kg
[2017-10-04] VITALS (14 sets, daily range): BP systolic 99–139; BP diastolic 62–76; PULSE 87–103; RESP 16–27; TEMP 96.6–98.3; O2SAT 89–96
[~2017-10-04 08:20] MED LIST changes: -ALBU0.086 NEB; +ASPI-183 PO; -ASPI325T PO; -AZIT250T74 PO; +DILT240C44 PO; +LEVA750T PO; +LOVA40TA PO; -METO50CR PO; -MEVA40TA PO; -Z.0.OXYGEN INH; -Z.0.OXYGENDME NC; -[UNRECOGNIZED DRUG - CODE] PO
[2017-10-04] MEDS ORDERED: ALBU1.25 NEB (08:35)
--- NOTE | 2017-10-04 08:50 | PD ---
HPI Chief Complaint: Respiratory Symptoms Time Seen by Provider: 08:44 Travel History International Travel<30 days: No Contact w/Intl Traveler<30days: No Traveled to known affect area: No History of Present Illness HPI 67yo M with PMH of COPD and pacemaker presents to the ED with c/o sob for 3 days. Used albuterol with little relive. He is on 2 L oxygen at home. + Cough. +Chest tightness. Denies any fever, n/v, abdominal pain, focal weakness or numbness. PFSH Past Medical History Blood Disorders: No Heart Rhythm Problems: Yes Cancer: No Cardiovascular Problems: Yes High Cholesterol: Yes Congestive Heart Failure: Yes COPD: Yes Coronary Artery Disease: No Diabetes: No Endocrine: No Gastrointestinal Disorders: No Genitourinary: No Hepatitis: No Hiatal Hernia: No Hypertension: No Immune Disorder: No Implanted Vascular Access Dvce: No Kidney Stones: No Musculoskeletal: Yes (ARTHRITIS, NECK/ BACK HNP'S) Neurologic: Yes (VERTIGO HX) Psychiatric: No Reproductive: No Respiratory: Yes (COPD) Sleep Apnea: No Thyroid Disease: No Influenza Vaccination: Yes Past Surgical History Abdominal Surgery: Yes (APPENDECTOMY) AICD: No Appendectomy: Yes Arteriovenous Shunt: No Cardiac Surgery: Yes (PACEMAKER 02/13) Ear Surgery: Yes (EAR DRUM REPLACED CHILD, L EAR SURGERY 06/2012) Insulin Pump: No Joint Replacement: Yes Pacemaker: Yes Other Surgery: Yes Social History Alcohol Use: No (DENIES) Tobacco Use: Yes (1/2 ppd) Substance Use: No Allergies-Medications (Allergen,Severity, Reaction): Coded Allergies: No Known Allergies (Verified , 03/10/17) Reported Meds & Prescriptions Reported Meds & Active Scripts Active Reported Albuterol Neb (Albuterol Sulfate) 1.25 Mg/3 Ml Neb 1.25 Mg NEB Q4HR NEB PRN Advair Diskus Inh (Fluticasone-Salmeterol Inh) 250-50 Mcg/Blist Aer 1 Puff INH BID Rinse mouth after use. Spiriva Handihaler (Tiotropium Inh) 18 Mcg Cap 18 Mcg INH DAILY 1 capsule = 18 mcg Diltiazem CD 24 HR 240 Mg Caper 240 Mg PO DAILY Aspirin 325 Mg Tab 325 Mg PO DAILY Lovastatin 40 Mg Tab 40 Mg PO HS Review of Systems Except as stated in HPI: all other systems reviewed are Neg Physical Exam Narrative GENERAL: 67yo M in mild distress. SKIN: Focused skin assessment warm/dry. HEAD: Atraumatic. Normocephalic. EYES: Pupils equal and round. No scleral icterus. No injection or drainage. CARDIOVASCULAR: Regular rate and rhythm. No murmur appreciated. RESPIRATORY: + accessory muscle use. Expiratory wheezing bilaterally. O2 sat 88 % on 2L NC. GASTROINTESTINAL: Abdomen soft, non-tender, nondistended. Hepatic and splenic margins not palpable. MUSCULOSKELETAL: No obvious deformities. No clubbing. No cyanosis. No edema. NEUROLOGICAL: Awake and alert. No obvious cranial nerve deficits. Motor grossly within normal limits. Normal speech. PSYCHIATRIC: Appropriate mood and affect; insight and judgment normal. Data Data Last Documented VS Vital Signs Date Time Temp Pulse Resp B/P (MAP) Pulse Ox O2 Delivery O2 Flow Rate FiO2 10/04/17 11:17 93 20 123/65 (84) 90 Nasal Cannula 2.00 10/04/17 08:23 98.3 Orders Orders Complete Blood Count With Diff (10/04/17 08:47) Basic Metabolic Panel (Bmp) (10/04/17 08:47) Act Partial Throm Time (Ptt) (10/04/17 08:47) Prothrombin Time / Inr (Pt) (10/04/17 08:47) Magnesium (Mg) (10/04/17 08:47) Troponin I (10/04/17 08:47) Arterial Blood Gas (Abg) (10/04/17 08:47) Electrocardiogram (10/04/17 08:47) Chest, Single Ap (10/04/17 08:47) Methylprednisolone So Succ Inj (Solumedr (10/04/17 09:00) Albuterol-Ipratropium Neb (Duoneb Neb) (10/04/17 09:00) Resp Bipap / Cpap Non Invas Vt (10/04/17 11:01) Albuterol Neb (Albuterol Neb) (10/04/17 11:15) Admit To Inpatient (10/04/17 ) Vital Signs (Adult) Q4H (10/04/17 11:31) Activity Bed Rest With Brp (10/04/17 ) Diet Regular Basic (10/04/17 Lunch) Sodium Chloride 0.9% Flush (Ns Flush) (10/04/17 21:00) Sodium Chloride 0.9% Flush (Ns Flush) (10/04/17 11:45) Albuterol Neb (Albuterol Neb) (10/04/17 11:45) Basic Metabolic Panel (Bmp) (10/05/17 06:00) Complete Blood Count With Diff (10/05/17 06:00) Resp Oxygen Bhavesh C Titrat 1-4 L (10/04/17 ) Azithromycin Inj (Zithromax Inj) (10/04/17 12:00) Admit Order (Ed Use Only) (10/04/17 11:35) Labs Laboratory Tests Test 10/04/17 09:00 10/04/17 09:06 White Blood Count 7.4 TH/MM3 Red Blood Count 5.04 MIL/MM3 Hemoglobin 13.9 GM/DL Hematocrit 42.7 % Mean Corpuscular Volume 84.7 FL Mean Corpuscular Hemoglobin 27.5 PG Mean Corpuscular Hemoglobin Concent 32.5 % Red Cell Distribution Width 14.4 % Platelet Count 158 TH/MM3 Mean Platelet Volume 9.9 FL Neutrophils (%) (Auto) 78.1 % Lymphocytes (%) (Auto) 8.7 % Monocytes (%) (Auto) 10.3 % Eosinophils (%) (Auto) 2.3 % Basophils (%) (Auto) 0.6 % Neutrophils # (Auto) 5.8 TH/MM3 Lymphocytes # (Auto) 0.6 TH/MM3 Monocytes # (Auto) 0.8 TH/MM3 Eosinophils # (Auto) 0.2 TH/MM3 Basophils # (Auto) 0.0 TH/MM3 CBC Comment DIFF FINAL Differential Comment Prothrombin Time 10.4 SEC Prothromb Time International Ratio 0.9 RATIO Activated Partial Thromboplast Time 28.9 SEC Blood Urea Nitrogen 22 MG/DL Creatinine 1.10 MG/DL Random Glucose 90 MG/DL Calcium Level 8.7 MG/DL Magnesium Level 2.3 MG/DL Sodium Level 137 MEQ/L Potassium Level 4.2 MEQ/L Chloride Level 100 MEQ/L Carbon Dioxide Level 27.7 MEQ/L Anion Gap 9 MEQ/L Estimat Glomerular Filtration Rate 66 ML/MIN Troponin I LESS THAN 0.02 NG/ML Blood Gas Puncture Site LT RADIAL Blood Gas Patient Temperature 98.6 Blood Gas HCO3 28 mmol/L Blood Gas Base Excess 2.4 mmol/L Blood Gas Oxygen Saturation 90 % Arterial Blood pH 7.33 Arterial Blood Partial Pressure CO2 54 mmHG Arterial Blood Partial Pressure O2 71 mmHG Arterial Blood Oxygen Content 17.9 Vol % Arterial Blood Carboxyhemoglobin 3.4 % Arterial Blood Methemoglobin 1.0 % Blood Gas Hemoglobin 14.1 G/DL Oxygen Delivery Device NASAL CANNULA Blood Gas Liter Flow 3 L/M MDM Medical Decision Making Medical Screen Exam Complete: Yes Emergency Medical Condition: Yes Differential Diagnosis COPD exacerbation vs. pneumonia vs. ACS Narrative Course 67yo M with COPD on home O2 2L NC here with c/o worsening sob. Pt is tachypneic with suprasternal retractions and wheezing bilaterally. O2 sat is 88 % on 2L NC so increased to 3L NC and is at 90%. Labs reviewed, no leukocytosis. BMP unremarkable. Troponin negative. ABG showed mild respiratory acidosis with pH 7.33, pCO2 54. O2 sat at 90% on 3L NC. CXR showed blunting left costophrenic angle either related to a small effusion or pleural scarring. Hyperinflation consistent with COPD. Pt reevaluated after methylprednisolone and duonebs x3 and still feels sob. Still with wheezing bilaterally and poor air entry. Pt said last time he had BIPAP here and it helped so will try that. Will admit for COPD exacerbation. Pt felt better with BIPAP and is now off it. Critical Care Narrative Aggregate critical care time was 50 minutes. Time to perform other separately billable procedures was not included in the critical care time. My time did not include minutes spent treating any other patients simultaneously or on activities that did not directly contribute to the patient's treatment. The services I provided to this patient were to treat and/or prevent clinically significant deterioration that could result in: respiratory distress or . I provided critical care services requiring my management, as noted below: Chart data review, documentation time, medication orders and management, vital sign assessments/reviewing monitor data, ordering and reviewing lab tests, ordering and interpreting/reviewing x-rays and diagnostic studies, care of the patient and discussion of the patient with the admitting physicians. Diagnosis Primary Impression: COPD exacerbation Admitting Information Admitting Physician Requests: Piper Loza DO Oct 04, 2017 08:50
[2017-10-04] MEDS: RESP: ALBUTEROL 2.5 MG/IPRATROPIUM 0.5 MG NEB (SCH) INH ×2 (08:59→09:01)
[2017-10-04] MEDS ORDERED: methylPREDNISolone SOD SUCC 125 MG/2 ML VIAL IV PUSH ONE (09:00)
[2017-10-04 09:11] LABS: BLOOD GAS BASE EXCESS 2.4 mmol/L (-2-2); BLOOD GAS CARBOXYHEMOGLOBIN 3.4 % (0-4); BLOOD GAS HCO3 28 mmol/L (22-26); BLOOD GAS O2 HGB SATURATION 90 % (90-100); BLOOD GAS OXYGEN CONTENT 17.9 Vol % (12.0-20.0); BLOOD GAS PCO2 54 mmHG (38-42); BLOOD GAS PO2 71 mmHG (61-120); BLOOD GAS TOTAL HGB 14.1 G/DL (12.0-16.0); CRITICAL VALUE YES; LITER FLOW 3 L/M; OXYGEN DEVICE NASAL CANNULA; TEMP CORR TO 98.6
[2017-10-04 09:12] LABS: DRAW SITE LT RADIAL; NUMBER OF ARTERIAL PUNCTURES 1; STAT YES; ULNAR PULSE PRESENT
[2017-10-04 09:20] LABS: AUTOMATED NEUTROPHIL # 5.8 TH/MM3 (1.8-7.7); BASOPHIL % 0.6 % (0.0-2.0); EOSINOPHIL # 0.2 TH/MM3 (0-0.4); EOSINOPHIL % 2.3 % (0.0-4.0); HEMATOCRIT 42.7 % (39.0-51.0); HEMO FLAGS DIFF FINAL; LYMPH % 8.7 % (9.0-44.0); LYMPHOCYTE # 0.6 TH/MM3 (1.0-4.8); MEAN CELL VOLUME 84.7 FL (80.0-100.0); MEAN CORPUSCULAR HEMOGLOBIN 27.5 PG (27.0-34.0); MEAN CORPUSCULAR HGB CONC 32.5 % (32.0-36.0); MONO % 10.3 % (0.0-8.0); NEUT % 78.1 % (16.0-70.0); PLATELET COUNT 158 TH/MM3 (150-450); RED BLOOD COUNT 5.04 MIL/MM3 (4.50-5.90); RED CELL DISTRIBUTION WIDTH 14.4 % (11.6-17.2); WHITE BLOOD COUNT 7.4 TH/MM3 (4.0-11.0)
[2017-10-04 09:27] LABS: APTT (PATIENT) 28.9 SEC (24.3-30.1); INTERNATIONAL NORMALIZED RATIO 0.9 RATIO; PROTHROMBIN TIME - PATIENT 10.4 SEC (9.8-11.6)
--- NOTE | 2017-10-04 09:34 | RADRPT ---
EXAM DATE/TIME: 10/04/2017 09:06 [facility] COMPARISON: CHEST SINGLE AP, March 15, 2017, 5:52. INDICATIONS : Short of breath. MEDICAL HISTORY : Chronic obstructive pulmonary disease. Afib. Coronary artery disease SURGICAL HISTORY : Pacemaker. Appendectomy ENCOUNTER: Initial ACUITY: 3 days PAIN SCORE: 0/10 LOCATION: Bilateral chest FINDINGS: 2 portable frontal views of the chest show hyperinflated lungs. Linear scarring within the lateral le ft midlung. Blunting of the left costophrenic angle. No infiltrates. Heart is normal in size. Pacing device overlies the left chest. Biapical pleural thickening. CONCLUSION: 1. Blunting involving the left costophrenic angle either related to a small effusion or pleural scarr ing. 2. Hyperinflation consistent with COPD. Michael Rowland Jr., MD on October 04, 2017 at 9:31 Board Certified Radiologist. This report was verified electronically.
[2017-10-04 09:53] LABS: BICARBONATE 27.7 MEQ/L (21.0-32.0); BLOOD UREA NITROGEN 22 MG/DL (7-18); MAGNESIUM 2.3 MG/DL (1.5-2.5)
[2017-10-04 09:55] LABS: ANION GAP 9 MEQ/L (5-15); CHLORIDE 100 MEQ/L (98-107); POTASSIUM 4.2 MEQ/L (3.5-5.1); SODIUM (NA) 137 MEQ/L (136-145)
[2017-10-04 09:56] LABS: GLOMERULAR FILTRATION RATE 66 ML/MIN (>89)
[2017-10-04] MEDS ORDERED: RESP: ALBUTEROL 2.5 MG/3 ML NEB (SCH) NEB ONE (11:15)
[2017-10-04] MEDS ORDERED: RESP: ALBUTEROL 2.5 MG/3 ML NEB (PRN) INH (11:45)
[2017-10-04] MEDS: AZITHROMYCIN INJ 500 MG in SODIUM CHLOR 0.9% 250 ML INJ 250 ML IV SCH (12:00)
--- NOTE | 2017-10-04 15:47 | EKG ---
Date Performed: 10/04/2017 Time Performed: 08:58:08 PTAGE: 67 years EKG: Sinus rhythm WITH OCCASIONAL SUPRAVENTRICULAR PREMATURE COMPLEXES BORDERLINE RIGHT AXIS DEVIATION BORDERLINE ECG Compared to PREVIOUS TRACING , patient is no longer tachycardic. PREVIOUS TRACIN03/10/2017 07.51 DOCTOR: Shraddha Long Interpretating Date/Time 10/04/2017 15:46:33
--- NOTE | 2017-10-04 16:46 | HHI.HP ---
[facility] Service [facility] Primary Care Physician No Primary Care Physician Admission Diagnosis COPD exacerbation Diagnoses: (1) COPD exacerbation (2) Hypoxia (3) Tobacco dependence Chief Complaint: Increasing shortness of breath and wheezing. Travel History International Travel<30 Days: No Contact w/Intl Traveler <30 Da: No Traveled to Known Affected Are: No History of Present Illness Written by Magalie Tejada, acting as scribe for Dr. Taveras on 10/04/17 at 1640. Mr. Ortiz is a 67-year-old male patient with a known medical history COPD, pacemaker placement and tobacco dependance who presented to the ED with complaints of worsening shortness of breath x 3 days. Patient states that he developed a cough after being around his sick grandchildren. He states he has been unable to perform any ADLs without becoming short of breath. Normally on 2L NC at home but has recently been requiring 3-4L. Also has been needing his inhalers more regularly. Denies any chest pain. Cough is present, states it is intermittently productive, white in color when present. Denies any recent fever , chills, headache, ab pain, n/v/d or dysuria. Does state he tried calling his primary care doctor with stated complaints without a return call therefore he decided to come into the ED. Follows with Dr. Trujillo for pulmonology. Denies any recent steroid or antibiotic use. Review of Systems Constitutional: DENIES: Fever, Chills Endocrine: DENIES: Polydipsia Eyes: DENIES: Diplopia Respiratory: COMPLAINS OF: Cough, Sputum production, Shortness of breath Cardiovascular: DENIES: Chest pain, Palpitations, Lower Extremity Edema Gastrointestinal: DENIES: Abdominal pain, Black stools, Constipation, Diarrhea , Nausea, Vomiting Genitourinary: DENIES: Urinary frequency Musculoskeletal: DENIES: Joint pain Hematologic/lymphatic: DENIES: Bruising Psychiatric: DENIES: Anxiety Except as stated in HPI: all other systems reviewed are Neg Past Family Social History Past Medical History COPD Dyslipidemia Arthritis Past Surgical History Appendectomy Pacemaker placement 2011 Ear drum replaced as a child Right hip replacement Reported Medications Active Reported Albuterol Neb (Albuterol Sulfate) 1.25 Mg/3 Ml Neb 1.25 Mg NEB Q4HR NEB PRN Advair Diskus Inh (Fluticasone-Salmeterol Inh) 250-50 Mcg/Blist Aer 1 Puff INH BID Rinse mouth after use. Spiriva Handihaler (Tiotropium Inh) 18 Mcg Cap 18 Mcg INH DAILY 1 capsule = 18 mcg Diltiazem CD 24 HR 240 Mg Caper 240 Mg PO DAILY Aspirin 325 Mg Tab 325 Mg PO DAILY Lovastatin 40 Mg Tab 40 Mg PO HS Allergies: Coded Allergies: No Known Allergies (Verified , 03/10/17) Active Ordered Medications Current Medications Medications (Trade) Dose Ordered Sig/Lluvia Route Start Time Stop Time Status Last Admin (NS Flush) 2 ml BID IV FLUSH 10/04/17 21:00 (NS Flush) 2 ml UNSCH PRN IV FLUSH 10/04/17 11:45 (Albuterol Neb) 2.5 mg Q2HR NEB PRN INH 10/04/17 11:45 Azithromycin 500 mg/Sodium Chloride 250 ml @ 250 mls/hr Q24H IV 10/04/17 12:00 10/04/17 12:00 (SoluMEDROL INJ) 40 mg Q8H IV PUSH 10/04/17 17:00 Family History Paternal medical history significant for emphysema. Maternal medical history for MD in her 60's. Social History Admits to smoking 1/2 ppd. Denies any alcohol use. Denies any illicit drug use. Physical Exam Vital Signs Vital Signs Date Time Temp Pulse Resp B/P (MAP) Pulse Ox O2 Delivery O2 Flow Rate FiO2 10/04/17 13:38 84 20 137/76 (96) 98 BiPAP 40 10/04/17 11:51 BiPAP 40 10/04/17 11:42 95 40 10/04/17 11:17 93 20 123/65 (84) 90 Nasal Cannula 2.00 10/04/17 09:47 103 20 122/62 (82) 94 Nasal Cannula 2.00 10/04/17 09:47 20 93 Nasal Cannula 2.00 10/04/17 09:23 94 Nasal Cannula 3.00 10/04/17 08:29 20 92 Nasal Cannula 2.00 10/04/17 08:23 98.3 87 20 139/74 (95) 92 Physical Exam GENERAL: This is a well-nourished, well-developed patient, lying in bed with apparent shortness of breath and cough. on Supplemental o2 SKIN: No rashes, ecchymoses or lesions. Warm and dry. HEENT: Atraumatic. Normocephalic. Pupils equal round and reactive. Extraocular motions intact. No scleral icterus. No injection or drainage. Nose without bleeding. Throat without erythema, tonsillar hypertrophy or exudate. Uvula midline. Airway patent. NECK: Trachea midline. No JVD. Supple. CARDIOVASCULAR: Regular rate and rhythm without murmurs, gallops, or rubs. RESPIRATORY: Diffuse expiratory wheezing throughout all lung bush. Breath sounds equal bilaterally. No wheezes, rales, or rhonchi. GASTROINTESTINAL: Abdomen soft, non-tender, nondistended. No guarding. MUSCULOSKELETAL: Extremities without clubbing, cyanosis, or edema. No joint tenderness, effusion, or edema noted. NEUROLOGICAL: Awake and alert. Cranial nerves II through XII intact. Motor and sensory grossly within normal limits. Five out of 5 muscle strength in all muscle groups. Normal speech. Laboratory Laboratory Tests Test 10/04/17 09:00 10/04/17 09:06 White Blood Count 7.4 Red Blood Count 5.04 Hemoglobin 13.9 Hematocrit 42.7 Mean Corpuscular Volume 84.7 Mean Corpuscular Hemoglobin 27.5 Mean Corpuscular Hemoglobin Concent 32.5 Red Cell Distribution Width 14.4 Platelet Count 158 Mean Platelet Volume 9.9 Neutrophils (%) (Auto) 78.1 Lymphocytes (%) (Auto) 8.7 Monocytes (%) (Auto) 10.3 Eosinophils (%) (Auto) 2.3 Basophils (%) (Auto) 0.6 Neutrophils # (Auto) 5.8 Lymphocytes # (Auto) 0.6 Monocytes # (Auto) 0.8 Eosinophils # (Auto) 0.2 Basophils # (Auto) 0.0 CBC Comment DIFF FINAL Differential Comment Prothrombin Time 10.4 Prothromb Time International Ratio 0.9 Activated Partial Thromboplast Time 28.9 Blood Urea Nitrogen 22 Creatinine 1.10 Random Glucose 90 Calcium Level 8.7 Magnesium Level 2.3 Sodium Level 137 Potassium Level 4.2 Chloride Level 100 Carbon Dioxide Level 27.7 Anion Gap 9 Estimat Glomerular Filtration Rate 66 Troponin I LESS THAN 0.02 Blood Gas Puncture Site LT RADIAL Blood Gas Patient Temperature 98.6 Blood Gas HCO3 28 Blood Gas Base Excess 2.4 Blood Gas Oxygen Saturation 90 Arterial Blood pH 7.33 Arterial Blood Partial Pressure CO2 54 Arterial Blood Partial Pressure O2 71 Arterial Blood Oxygen Content 17.9 Arterial Blood Carboxyhemoglobin 3.4 Arterial Blood Methemoglobin 1.0 Blood Gas Hemoglobin 14.1 Oxygen Delivery Device NASAL CANNULA Blood Gas Liter Flow 3 Result Diagram: 10/04/17 0900 10/04/17 0900 Imaging Last Impressions Chest X-Ray 10/04/17 0847 Signed Impressions: Service Date/Time: Wednesday, October 04, 2017 09:06 - CONCLUSION: 1. Blunting involving the left costophrenic angle either related to a small effusion or pleural scarring. 2. Hyperinflation consistent with COPD. MD Rossy Springer Jr. VTE Risk Assessment Rossy VTE Risk Assessment: Mod/High Risk (score >= 2) Caprini Risk Assessment Model Point Value = 1 Point Value = 2 Point Value = 3 Point Value = 5 Age 41-60 Minor surgery BMI > 25 kg/m2 Swollen legs Varicose veins or History of unexplained or recurrent spontaneous Oral contraceptives or hormone replacement Sepsis (< 1 month) Serious lung disease, including pneumonia (< 1 month) Abnormal pulmonary function Acute myocardial infarction Congestive heart failure (< 1 month) History of inflammatory bowel disease Medical patient at bed rest Age 61-74 Arthroscopic surgery Major open surgery (> 45 min) Laparoscopic surgery (> 45 min) Malignancy Confined to bed (> 72 hours) Immobilizing plaster cast Central venous access Age >= 75 History of VTE Family history of VTE Factor V Leiden Prothrombin [id number] Lupus anticoagulant Anticardiolipin antibodies Elevated serum homocysteine Heparin-induced thrombocytopenia Other congenital or acquired thrombophilia Stroke (< 1 month) Elective arthroplasty Hip, pelvis, or leg fracture Acute spinal cord injury (< 1 month) Prophylaxis Regimen Total Risk Factor Score Risk Level Prophylaxis Regimen 0-1 Low Early ambulation 2 Moderate Order ONE of the following: *Sequential Compression Device (SCD) *Heparin 5000 units SQ BID 3-4 Higher Order ONE of the following medications: *Heparin 5000 units SQ TID *Enoxaparin/Lovenox 40 mg SQ daily (WT < 150 kg, CrCl > 30 mL/min) *Enoxaparin/Lovenox 30 mg SQ daily (WT < 150 kg, CrCl > 10-29 mL/min) *Enoxaparin/Lovenox 30 mg SQ BID (WT < 150 kg, CrCl > 30 mL/min) AND/OR *Sequential Compression Device (SCD) 5 or more Highest Order ONE of the following medications: *Heparin 5000 units SQ TID (Preferred with Epidurals) *Enoxaparin/Lovenox 40 mg SQ daily (WT < 150 kg, CrCl > 30 mL/min) *Enoxaparin/Lovenox 30 mg SQ daily (WT < 150 kg, CrCl > 10-29 mL/min) *Enoxaparin/Lovenox 30 mg SQ BID (WT < 150 kg, CrCl > 30 mL/min) AND *Sequential Compression Device (SCD) Assessment and Plan Problem List: (1) COPD exacerbation ICD Code: J44.1 - Chronic obstructive pulmonary disease with (acute) exacerbation Status: Acute Plan: Acute on chronic COPD Will admit under intermediate care and placed in the ICU for closer monitoring. Patient given 125 mg IV Solumedrol in ED. Started on scheduled IV steroids 40 mg IV q8hr. Duonebs PRN as needed. Started on Azithromycin 500 mg IV q24h Afebrile. Monitor fevers. ABG obtained in ED showing some CO2 retention. BIPAP ordered and placed on patient, encouraged to keep on at night. CBC reviewed and essentially unremarkable. Labs ordered in am, follow. CXR reviewed and showing blunting involving the left costophrenic angle either related to a small effusion or pleural scarring. Hyperinflation noted. EKG reviewed showing SR with HR 93. Paced rhythm noted. Continue cardiac telemetry, monitor for any presence of arrhythmias. Continue home inhalers, Spiriva and Advair. (2) Tobacco dependence ICD Code: F17.200 - Nicotine dependence, unspecified, uncomplicated Status: Chronic Plan: Patient counselled on cessation. (3) Pacemaker ICD Code: Z95.0 - Presence of cardiac pacemaker Status: Chronic Plan: CAD with presence of pacemaker Continue home aspirin and Cardizem. (4) Dyslipidemia ICD Code: E78.5 - Hyperlipidemia, unspecified Plan: Continue home statin. Physician Certification 2 Midnight Certification Type: Admission for Inpatient Services Order for Inpatient Services The services are ordered in accordance with Medicare regulations or non- Medicare payer requirements, as applicable. In the case of services not specified as inpatient-only, they are appropriately provided as inpatient services in accordance with the 2-midnight benchmark. Estimated LOS (days): 3 3 days is the estimated time the patient will need to remain in the hospital, assuming treatment plan goals are met and no additional complications. Post-Hospital Plan: Not yet determined Medical Decision Making Impression and Plan The exam, history, and the medical decision-making described in the above note were completed with my assistance as the dictating practitioner. I attest that I had a [id number] encounter with the patient on the same day, and personally performed all of the history, exam, or medical decision making. I reviewed and agree with the plan. Seen in room with accessory muscle use and personally breathing. Calm. Incomplete sentences due to shortness of breath Transferred to ICU for possible noninvasive ventilation. We'll continue with scheduled DuoNeb nebs, follow up echocardiogram, continue oxygen Pulmonary consult pending, continue Lovenox for DVT prophylaxis and follow Discussed with patient and SUPERVISOR QUALITY CONTROLMagalie Zhao Oct 04, 2017 16:46 Batsheva Taveras MD Oct 04, 2017 18:16
[2017-10-04] MEDS: methylPREDNISolone SOD SUCC 40 MG/1 ML VIAL IV PUSH SCH (17:00)
[2017-10-04 18:38] LABS: BLOOD GAS BASE EXCESS 3.3 mmol/L (-2-2); BLOOD GAS CARBOXYHEMOGLOBIN 1.6 % (0-4); BLOOD GAS HCO3 28 mmol/L (22-26); BLOOD GAS METHEMOGLOBIN 1.1 % (0-2); BLOOD GAS O2 HGB SATURATION 86 % (90-100); BLOOD GAS OXYGEN CONTENT 16.2 Vol % (12.0-20.0); BLOOD GAS PCO2 52 mmHg (38-42); BLOOD GAS PO2 54 mmHg (61-120); BLOOD GAS TOTAL HGB 13.4 G/DL (12.0-16.0); CRITICAL VALUE YES; DRAW SITE RT RADIAL; LITER FLOW 4 L/M; NUMBER OF ARTERIAL PUNCTURES 1; OXYGEN DEVICE NASAL CANNULA
[2017-10-04 18:39] LABS: STAT NO; ULNAR PULSE PRESENT
[2017-10-04] MEDS: PRAVASTATIN SOD 40 MG TAB PO SCH (19:57)
[2017-10-04] MEDS: ENOXAPARIN SODIUM 40 MG/0.4 ML SYRINGE SQ SCH (19:57)
[2017-10-04] MEDS: SODIUM CHLORIDE 0.9% FLUSH 10 ML FLUSH IV FLUSH SCH (19:58)
[2017-10-04] MEDS: BUDESONIDE-FORMOTEROL 160/4.5 MCG INHALER INH SCH (20:15)
[2017-10-04] MEDS: RESP: ALBUTEROL 2.5 MG/IPRATROPIUM 0.5 MG NEB (SCH) NEB (20:26)
--- NOTE | 2017-10-04 23:07 | MB ---
cc: ANGELICANGELIC DATE OF CONSULTATION 10/04/17 REASON FOR CONSULTATION 1. COPD exacerbation 2. Acute respiratory failure. HISTORY OF PRESENT ILLNESS Mr. Ortiz is a 67-year-old male with known history of COPD apparently of severe degree, was complaining of increasing shortness of breath for several days prior to his hospitalization, cough expectoration of whitish yellowish mucoid sputum. No fever or chills. No hemoptysis. No history of TB or previous industrial exposure. PAST MEDICAL HISTORY 1. COPD 2. Hyperlipidemia 3. Degenerative joint disease, 4. Previous pacemaker insertion 2011. 5. Eardrum surgery as a child. 6. Right hip replacement 7. Appendectomy as a child MEDICATIONS At home include 1. Advair twice daily. 2. Albuterol p.r.n. 3. Spiriva once daily 4. Diltiazem CD 240 mg daily. 5. Aspirin 325 mg a day. 6. Lovastatin 40 mg daily. ALLERGIES None known to medication FAMILY HISTORY Noncontributory. REVIEW OF SYSTEMS 12-point review of systems as per HPI and past history otherwise negative. PHYSICAL EXAMINATION GENERAL: Patient is alert. VITAL SIGNS: Temperature 98.2, respiration 20, blood pressure 130/74. Oxygen saturation 98% on BiPap therapy. HEENT: Exam unremarkable. Eyes without icterus. NECK: Without adenopathy or thyroid enlargement. Central trachea. CHEST: Increased PA diameter noted. No dullness to percussion, clear to auscultation. CARDIAC: PMI distant. S1, S2 audible. No murmur or rub. ABDOMEN: Lax, bowel sounds audible. EXTREMITIES: No clubbing, cyanosis or edema. SKIN: Normal. No lymphadenopathy. LABORATORY DATA White count 7.4, hemoglobin 13, hematocrit 42. Sodium 137, potassium 4.2, BUN 22, creatinine 1.1. IMAGING STUDIES Chest x-ray with hyperinflation suggestive of underlying COPD. blunting left costophrenic angle, significance unclear. IMPRESSION 1. COPD exacerbation 2. Respiratory failure on BiPap therapy at present. 3. Tobacco abuse. 4. Hyperlipidemia 5. Degenerative joint disease. PLAN The patient will be maintained on oxygen therapy as needed. BiPap therapy instituted as needed as well. Chest x-ray will be followed as needed. Once able, we will switch to nasal cannula and discontinue BiPap therapy when possible. We will follow the patient's course along with you and depending on progress proceed further. I do thank you for asking me to partake in Mr. Ortiz's care. Angelic Atwood MD WWW/ /10:13 PM /10:41 PM
[2017-10-05] VITALS (17 sets, daily range): BP systolic 101–149; BP diastolic 50–96; PULSE 68–103; RESP 14–26; TEMP 96.9–98; O2SAT 92–98
[2017-10-05] MEDS: methylPREDNISolone SOD SUCC 40 MG/1 ML VIAL IV PUSH SCH ×2 (00:22→08:53)
[2017-10-05 06:30] LABS: AUTOMATED NEUTROPHIL # 5.5 TH/MM3 (1.8-7.7); HEMO FLAGS DIFF FINAL; LYMPH % 6.4 % (9.0-44.0); LYMPHOCYTE # 0.4 TH/MM3 (1.0-4.8); MEAN CELL VOLUME 85.5 FL (80.0-100.0); MEAN CORPUSCULAR HEMOGLOBIN 28.1 PG (27.0-34.0); MEAN CORPUSCULAR HGB CONC 32.9 % (32.0-36.0); NEUT % 90.6 % (16.0-70.0); PLATELET COUNT 152 TH/MM3 (150-450); RED BLOOD COUNT 4.68 MIL/MM3 (4.50-5.90); RED CELL DISTRIBUTION WIDTH 14.2 % (11.6-17.2); WHITE BLOOD COUNT 6.1 TH/MM3 (4.0-11.0)
[2017-10-05 06:39] LABS: POTASSIUM 4.6 MEQ/L (3.5-5.1)
[2017-10-05 06:45] LABS: BICARBONATE 31.6 MEQ/L (21.0-32.0)
[2017-10-05] MEDS: RESP: ALBUTEROL 2.5 MG/IPRATROPIUM 0.5 MG NEB (SCH) NEB ×3 (08:33→20:00)
[2017-10-05] MEDS: DILTIAZEM-CD 240 MG CAP ER PO SCH (08:53)
[2017-10-05] MEDS: SODIUM CHLORIDE 0.9% FLUSH 10 ML FLUSH IV FLUSH SCH ×2 (08:54→20:51)
[2017-10-05] MEDS: ASPIRIN 325 MG TAB PO SCH (08:54)
[2017-10-05 10:52] LABS: BLOOD GAS BASE EXCESS 5.5 mmol/L (-2-2); BLOOD GAS CARBOXYHEMOGLOBIN 0.9 % (0-4); BLOOD GAS HCO3 32 mmol/L (22-26); BLOOD GAS METHEMOGLOBIN 1.3 % (0-2); BLOOD GAS O2 HGB SATURATION 89 % (90-100); BLOOD GAS OXYGEN CONTENT 17.2 Vol % (12.0-20.0); BLOOD GAS PCO2 68 mmHg (38-42); BLOOD GAS PO2 64 mmHg (61-120); BLOOD GAS TOTAL HGB 13.8 G/DL (12.0-16.0)
[2017-10-05 10:56] LABS: CRITICAL VALUE YES; DRAW SITE RT BRACHIAL; LITER FLOW 4 L/M; NUMBER OF ARTERIAL PUNCTURES 1; OXYGEN DEVICE NASAL CANNULA; STAT NO; ULNAR PULSE Y
[2017-10-05] MEDS: AZITHROMYCIN INJ 500 MG in SODIUM CHLOR 0.9% 250 ML INJ 250 ML IV SCH (12:19)
--- NOTE | 2017-10-05 13:15 | HHI.PR ---
Subjective Remarks Patient seen in room today in follow-up for respiratory failure secondary to COPD exacerbation. Patient has hypercapnic and hypoxemic respiratory failure. He was started back on BiPAP. Continuing with steroids and bronchodilators. Plan of care discussed with patient, daughter at bedside and with nursing team Objective Vitals Vital Signs Date Time Temp Pulse Resp B/P (MAP) Pulse Ox O2 Delivery O2 Flow Rate FiO2 10/05/17 12:00 96.9 84 26 111/69 (83) 97 10/05/17 11:00 98 Bi-Pap 40 10/05/17 11:00 93 10/05/17 08:34 94 Nasal Cannula 4.00 10/05/17 08:00 97.9 90 24 128/68 (88) 95 10/05/17 04:30 92 40 10/05/17 04:00 97.1 82 16 104/70 (81) 93 10/05/17 01:25 93 40 10/05/17 00:00 97.8 95 17 149/96 (113) 92 10/04/17 23:10 94 40 10/04/17 20:30 96 40 10/04/17 20:00 97.7 93 27 99/69 (79) 90 10/04/17 19:15 92 Nasal Cannula 4.00 10/04/17 17:50 89 10/04/17 17:50 89 Nasal Cannula 3.00 10/04/17 16:34 95 40 10/04/17 16:00 96.6 93 20 112/70 (84) 93 10/04/17 14:45 97.4 87 16 112/63 (79) 92 10/04/17 13:38 84 20 137/76 (96) 98 BiPAP 40 I/O 10/04/17 10/04/17 10/04/17 10/05/17 10/05/17 10/05/17 07:00 15:00 23:00 07:00 15:00 23:00 Intake Total 250 ml 240 ml Output Total 0 ml 1625 ml Balance 250 ml 240 ml -1625 ml Intake Oral 240 ml IV Total 250 ml Output Urine Total 0 ml 1625 ml # Bowel Movements 0 Result Diagram: 10/05/17 0550 10/05/17 0550 Objective Remarks GENERAL: This is a well-nourished, well-developed patient, short of breath on BiPAP, dyspneic with minimal conversation CARDIOVASCULAR: Sinus tachycardia without murmurs, gallops, or rubs. RESPIRATORY: Decreased air flow with scattered wheezes GASTROINTESTINAL: Abdomen soft, non-tender, nondistended. Normal active bowel sounds MUSCULOSKELETAL: Extremities without clubbing, cyanosis, or edema. NEURO: Alert & Oriented x4 to person, place, time, situation. Moves all ext x4 A/P Problem List: (1) COPD exacerbation ICD Code: J44.1 - Chronic obstructive pulmonary disease with (acute) exacerbation Status: Acute Plan: With respiratory failure secondary to hypercapnia and hypoxemic respiratory failure in a patient with known Acute on chronic COPD Continue IV steroids., increase dose, nebulized bronchodilators and IV antibiotics Patient remains in ICU on BiPAP, full code per patient (2) Tobacco dependence ICD Code: F17.200 - Nicotine dependence, unspecified, uncomplicated Status: Chronic Plan: Patient counselled on cessation. (3) Pacemaker ICD Code: Z95.0 - Presence of cardiac pacemaker Status: Chronic Plan: CAD with presence of pacemaker Continue home aspirin and Cardizem. Patient does not follow-up with a office auditor (4) Dyslipidemia ICD Code: E78.5 - Hyperlipidemia, unspecified Plan: Continue home statin. (5) Atrial fibrillation ICD Code: I48.91 - Unspecified atrial fibrillation Plan: Rate controlled, continue Cardizem and aspirin Assessment and Plan DVT prophylaxis and proton pump inhibitor Batsheva Taveras MD Oct 05, 2017 13:14
[2017-10-05] MEDS: PANTOPRAZOLE SOD 40 MG DELAYED RELEASE TAB PO SCH (14:00)
[2017-10-05] MEDS: methylPREDNISolone SOD SUCC 125 MG/2 ML VIAL IV PUSH SCH (17:48)
--- NOTE | 2017-10-05 18:04 | HHI.PR ---
Subjective Remarks alert still requires BIPAP therapy Objective Vital Signs Date Time Temp Pulse Resp B/P (MAP) Pulse Ox O2 Delivery O2 Flow Rate FiO2 10/05/17 16:00 97.4 74 16 110/56 (74) 98 10/05/17 14:58 97 10/05/17 12:00 96.9 84 26 111/69 (83) 97 10/05/17 11:00 98 Bi-Pap 40 10/05/17 11:00 93 10/05/17 08:34 94 Nasal Cannula 4.00 10/05/17 08:00 97.9 90 24 128/68 (88) 95 10/05/17 04:30 92 40 10/05/17 04:00 97.1 82 16 104/70 (81) 93 10/05/17 01:25 93 40 10/05/17 00:00 97.8 95 17 149/96 (113) 92 10/04/17 23:10 94 40 10/04/17 20:30 96 40 10/04/17 20:00 97.7 93 27 99/69 (79) 90 10/04/17 19:15 92 Nasal Cannula 4.00 I/O 10/04/17 10/04/17 10/04/17 10/05/17 10/05/17 10/05/17 07:00 15:00 23:00 07:00 15:00 23:00 Intake Total 250 ml 240 ml Output Total 0 ml 1625 ml Balance 250 ml 240 ml -1625 ml Intake Oral 240 ml IV Total 250 ml Output Urine Total 0 ml 1625 ml # Bowel Movements 0 Result Diagram: 10/05/17 0550 10/05/17 0550 Objective Remarks GENERAL: SKIN: Warm and dry. HEAD: Atraumatic. Normocephalic. EYES: Pupils equal and round. No scleral icterus. No injection or drainage. ENT: No nasal bleeding or discharge. Mucous membranes pink and moist. NECK: Trachea midline. No JVD. CARDIOVASCULAR: Regular rate and rhythm. RESPIRATORY: No accessory muscle use. Clear to auscultation. Breath sounds equal bilaterally. GASTROINTESTINAL: Abdomen soft, non-tender, nondistended. Hepatic and splenic margins not palpable. MUSCULOSKELETAL: Extremities without clubbing, cyanosis, or edema. No obvious deformities. NEUROLOGICAL: Awake and alert. No obvious cranial nerve deficits. Motor grossly within normal limits. Five out of 5 muscle strength in the arms and legs. Normal speech. PSYCHIATRIC: Appropriate mood and affect; insight and judgment normal. Assessment and Plan Assessment and Plan respiratory failure COPD EXACERBATION PLAN O2/BIPAP NEEDED BRONCHODILATOR THERAPY INCREASE ACTIVITY Discharge Planning Vital Signs Date Time Temp Pulse Resp B/P (MAP) Pulse Ox O2 Delivery O2 Flow Rate FiO2 10/05/17 16:00 97.4 74 16 110/56 (74) 98 10/05/17 14:58 97 10/05/17 12:00 96.9 84 26 111/69 (83) 97 10/05/17 11:00 98 Bi-Pap 40 10/05/17 11:00 93 10/05/17 08:34 94 Nasal Cannula 4.00 10/05/17 08:00 97.9 90 24 128/68 (88) 95 10/05/17 04:30 92 40 10/05/17 04:00 97.1 82 16 104/70 (81) 93 10/05/17 01:25 93 40 10/05/17 00:00 97.8 95 17 149/96 (113) 92 10/04/17 23:10 94 40 10/04/17 20:30 96 40 10/04/17 20:00 97.7 93 27 99/69 (79) 90 10/04/17 19:15 92 Nasal Cannula 4.00 Angelic Atwood MD Oct 05, 2017 18:04
--- NOTE | 2017-10-05 18:41 | ECHRPT ---
Indication: SOB CONCLUSIONS Normal left ventricular size. Wall thickness is normal. The left ventricular systolic function is [id number] reduced with an estimated ejection fra ction in the range of 35-40%. BP: / HR: Rhythm: MEASUREMENTS (Male / Female) Normal Values Technical Quality:Good 2D ECHO LV Diastolic Diameter PLAX 4.1 cm 4.2 - 5.9 / 3.9 - 5.3 cm LV Systolic Diameter PLAX 3.4 cm IVS Diastolic Thickness 1.2 cm 0.6 - 1.0 / 0.6 - 0.9 cm LVPW Diastolic Thickness 0.7 cm 0.6 - 1.0 / 0.6 - 0.9 cm LV Relative Wall Thickness 0.4 RV Internal Dim ED PLAX 1.9 cm LA Systolic Diameter LX 3.3 cm 3.0 - 4.0 / 2.7 - 3.8 cm DOPPLER Mitral E Point Velocity 76.5 cm/s Mitral A Point Velocity 49.4 cm/s Mitral E to A Ratio 1.5 TR Peak Velocity 141.0 cm/s TR Peak Gradient 8.0 mmHg Right Atrial Pressure 5.0 mmHg Pulmonary Artery Systolic Pressu 13.0 mmHg Right Ventricular Systolic Press 13.0 mmHg FINDINGS LEFT VENTRICLE Normal left ventricular size. Wall thickness is normal. The left ventricular systolic function is xilluswa-uk-idqggto reduced with an estimated ejection fra ction in the range of 35-40%. RIGHT VENTRICLE Normal right ventricular size and systolic function. LEFT ATRIUM The left atrial size is normal. RIGHT ATRIUM The right atrial size is normal. ATRIAL SEPTUM Normal atrial septal thickness without atrial level shunting by limited color doppler interrogation. AORTA The aortic root and proximal ascending aorta are normal in size on limited imaging. MITRAL VALVE Structurally normal mitral valve. No mitral valve stenosis or regurgitation. AORTIC VALVE Trileaflet aortic valve. No aortic valve stenosis or regurgitation. TRICUSPID VALVE Structurally normal tricuspid valve. No tricuspid valve stenosis or regurgitation. PULMONARY VALVE No pulmonary valve regurgitation or stenosis. VESSELS The inferior vena cava is normal in size. PERICARDIUM No pericardial effusion. Kp Byers MD, FACC, [facility] [place] (Electronically Signed) Final Date:05 October 2017 18:40
--- NOTE | 2017-10-05 20:20 | RADRPT ---
EXAM DATE/TIME: 10/05/2017 19:49 [place] COMPARISON: CHEST SINGLE AP, October 04, 2017, 9:06. INDICATIONS : Shortness of breath. MEDICAL HISTORY : Chronic obstructive pulmonary disease. Congestive heart failure. SURGICAL HISTORY : Pacemaker. ENCOUNTER: Subsequent ACUITY: 3 days PAIN SCORE: 0/10 LOCATION: Bilateral chest FINDINGS: Hyperexpanded lungs with basilar scarring again noted. No infiltrate, effusion or pneumothorax seen. Heart size stable, within normal limits. There is a cardiac pacer again noted. CONCLUSION: No acute cardiopulmonary disease demonstrated. Prasad Saxena MD on October 05, 2017 at 20:17 Board Certified Radiologist. This report was verified electronically.
[2017-10-05] MEDS: BUDESONIDE-FORMOTEROL 160/4.5 MCG INHALER INH SCH (20:51)
[2017-10-05] MEDS: ENOXAPARIN SODIUM 40 MG/0.4 ML SYRINGE SQ SCH (20:51)
[2017-10-05] MEDS: PRAVASTATIN SOD 40 MG TAB PO SCH (20:51)
[2017-10-06] VITALS (24 sets, daily range): BP systolic 98–129; BP diastolic 46–70; PULSE 62–92; RESP 14–36; TEMP 97.5–98.4; O2SAT 92–98
[2017-10-06] MEDS: methylPREDNISolone SOD SUCC 125 MG/2 ML VIAL IV PUSH SCH ×3 (00:20→17:43)
[2017-10-06] MEDS: SODIUM CHLORIDE 0.9% FLUSH 10 ML FLUSH IV FLUSH PRN (00:20)
[2017-10-06 06:17] LABS: BLOOD GAS BASE EXCESS 7.5 mmol/L (-2-2); BLOOD GAS CARBOXYHEMOGLOBIN 0.8 % (0-4); BLOOD GAS HCO3 34 mmol/L (22-26); BLOOD GAS METHEMOGLOBIN 1.4 % (0-2); BLOOD GAS O2 HGB SATURATION 96 % (90-100); BLOOD GAS PCO2 73 mmHg (38-42); BLOOD GAS PO2 127 mmHg (61-120); BLOOD GAS TOTAL HGB 13.2 G/DL (12.0-16.0); CRITICAL VALUE YES; DRAW SITE RT RADIAL; FIO2 40 %; NUMBER OF ARTERIAL PUNCTURES 1; OXYGEN DEVICE BIPAP; STAT NO; ULNAR PULSE PRESENT
[2017-10-06] MEDS: RESP: ALBUTEROL 2.5 MG/IPRATROPIUM 0.5 MG NEB (SCH) NEB ×3 (08:19→19:55)
[2017-10-06] MEDS: BUDESONIDE-FORMOTEROL 160/4.5 MCG INHALER INH SCH ×2 (08:36→21:12)
[2017-10-06] MEDS: TIOTROPIUM BROMIDE 18 MCG INH INH SCH ×2 (08:36→08:42)
[2017-10-06] MEDS: SODIUM CHLORIDE 0.9% FLUSH 10 ML FLUSH IV FLUSH SCH ×2 (08:39→21:13)
[2017-10-06] MEDS: DILTIAZEM-CD 240 MG CAP ER PO SCH (08:40)
[2017-10-06] MEDS: PANTOPRAZOLE SOD 40 MG DELAYED RELEASE TAB PO SCH (08:40)
[2017-10-06] MEDS: ASPIRIN 325 MG TAB PO SCH (08:40)
--- NOTE | 2017-10-06 08:45 | HHI.PR ---
Subjective Remarks Written by Magalie Tejada, acting as scribe for Dr. Taveras on 10/06/17 at 08:58. Follow up COPD exacerbation. Patient seen and examined, sitting up in bed on NC eating breakfast. Apparent accessory muscle use. Awake, alert and oriented. at bedside. Denies any new acute events overnight, slept well, tolerated BIPAP at night. ABG reviewed from this am, no improvement in CO2. Will monitor today for any decompensation, may need intubation. Objective Vitals Vital Signs Date Time Temp Pulse Resp B/P (MAP) Pulse Ox O2 Delivery O2 Flow Rate FiO2 10/06/17 06:20 98 35 10/06/17 05:00 64 14 106/64 (78) 98 10/06/17 04:01 98.4 66 17 106/64 (78) 96 10/06/17 04:00 97 40 10/06/17 04:00 64 10/06/17 03:22 64 17 111/62 (78) 98 10/06/17 02:00 64 10/06/17 01:21 97 40 10/06/17 01:00 64 15 99/56 (70) 98 10/06/17 00:13 97.5 62 15 98/46 (63) 97 10/06/17 00:00 64 10/06/17 00:00 97 Bi-Pap 10/05/17 23:01 68 16 101/50 (67) 96 10/05/17 22:01 80 14 113/63 (80) 98 10/05/17 22:00 78 10/05/17 21:30 97 40 10/05/17 21:00 98.0 92 26 117/64 (81) 94 10/05/17 20:00 95 Nasal Cannula 5.00 10/05/17 20:00 94 Nasal Cannula 4.00 10/05/17 20:00 103 10/05/17 20:00 98.0 92 22 117/65 (82) 95 10/05/17 19:00 86 19 112/62 (79) 94 10/05/17 16:00 97.4 74 16 110/56 (74) 98 10/05/17 14:58 97 10/05/17 12:00 96.9 84 26 111/69 (83) 97 10/05/17 11:00 98 Bi-Pap 40 10/05/17 11:00 93 10/05/17 08:34 94 Nasal Cannula 4.00 I/O 10/05/17 10/05/17 10/05/17 10/06/17 10/06/17 10/06/17 07:00 15:00 23:00 07:00 15:00 23:00 Intake Total 360 ml 240 ml Output Total 1625 ml 1500 ml 1350 ml Balance -1625 ml -1140 ml -1110 ml Intake Oral 360 ml 240 ml Output Urine Total 1625 ml 1500 ml 1350 ml Stool Total 0 ml # Voids 4 # Bowel Movements 0 0 Result Diagram: 10/05/17 0550 10/05/17 0550 Imaging Last Impressions Chest X-Ray 10/05/17 0000 Signed Impressions: Service Date/Time: Thursday, October 05, 2017 19:49 - CONCLUSION: No acute cardiopulmonary disease demonstrated. Prasad Saxena MD Objective Remarks GENERAL: This is a well-nourished, well-developed patient, on NC eating breakfast, dyspneic, accessory muscle use. Awake, alert and oriented x4. SKIN: No rashes, ecchymoses or lesions. Warm and dry. HEENT: Atraumatic. Normocephalic. Pupils equal round and reactive. Extraocular motions intact. No scleral icterus. No injection or drainage. Nose without bleeding. Airway patent. NECK: Trachea midline. No JVD. Supple. CARDIOVASCULAR: Regular rate and rhythm without murmurs, gallops, or rubs. RESPIRATORY: Diffuse expiratory wheezing throughout all lung bush. Breath sounds equal bilaterally. GASTROINTESTINAL: Abdomen soft, non-tender, nondistended. No guarding. MUSCULOSKELETAL: Extremities without clubbing, cyanosis, or edema. No joint tenderness, effusion, or edema noted. NEUROLOGICAL: Awake and alert. Cranial nerves II through XII intact. Motor and sensory grossly within normal limits. Five out of 5 muscle strength in all muscle groups. A/P Problem List: (1) COPD exacerbation ICD Code: J44.1 - Chronic obstructive pulmonary disease with (acute) exacerbation Status: Acute Plan: With respiratory failure secondary to hypercapnia and hypoxemic respiratory failure in a patient with known Acute on chronic COPD Continue IV steroids, Methylprednisolone 60 mg q8hr. Continue nebulized bronchodilators and IV antibiotics Pulmonology following. Patient remains in ICU on BiPAP, full code per patient (2) Pacemaker ICD Code: Z95.0 - Presence of cardiac pacemaker Status: Chronic Plan: CAD with presence of pacemaker Continue home aspirin and Cardizem. 2-D ECHO resulted showing EF 35-40%. No ECHO to compare in EMR, patient is unaware of prior ECHO or EF %. Does follow with [facility], Dr. Sheppard, was last seen last month. (3) Dyslipidemia ICD Code: E78.5 - Hyperlipidemia, unspecified Plan: Continue home statin. (4) Atrial fibrillation ICD Code: I48.91 - Unspecified atrial fibrillation Plan: Rate controlled, continue Cardizem and aspirin (5) Tobacco dependence ICD Code: F17.200 - Nicotine dependence, unspecified, uncomplicated Status: Chronic Plan: Patient counselled on cessation. DVT prophylaxis: Lovenox. GI Prophylaxis: Protonix. Full Code. Attending Statement This note was transcribed by joslyn [she]. I, Dr. Batsheva Taveras personally performed the history, physical exam, and medical decision making; and confirmed the accuracy of the information in the transcribed note. Authenticated by Dr. Batsheva Taveras on 10/06/17 at 09:40. Magalie Tejada Oct 06, 2017 08:45 Batsheva Taveras MD Oct 06, 2017 15:41
[2017-10-06] MEDS: AZITHROMYCIN INJ 500 MG in SODIUM CHLOR 0.9% 250 ML INJ 250 ML IV SCH (12:00)
--- NOTE | 2017-10-06 17:15 | HHI.PR ---
Subjective Remarks alert still requires BIPAP therapy Objective Vital Signs Date Time Temp Pulse Resp B/P (MAP) Pulse Ox O2 Delivery O2 Flow Rate FiO2 10/06/17 16:00 97.6 74 29 104/54 (71) 92 10/06/17 15:00 80 10/06/17 12:00 98.3 78 30 118/58 (78) 97 10/06/17 09:00 88 10/06/17 08:19 96 Nasal Cannula 5.00 10/06/17 08:00 97.8 66 24 119/65 (83) 98 10/06/17 08:00 66 10/06/17 08:00 92 Nasal Cannula 5.00 10/06/17 07:00 74 10/06/17 06:20 98 35 10/06/17 05:00 64 14 106/64 (78) 98 10/06/17 04:01 98.4 66 17 106/64 (78) 96 10/06/17 04:00 97 40 10/06/17 04:00 64 10/06/17 03:22 64 17 111/62 (78) 98 10/06/17 02:00 64 10/06/17 01:21 97 40 10/06/17 01:00 64 15 99/56 (70) 98 10/06/17 00:13 97.5 62 15 98/46 (63) 97 10/06/17 00:00 64 10/06/17 00:00 97 Bi-Pap 10/05/17 23:01 68 16 101/50 (67) 96 10/05/17 22:01 80 14 113/63 (80) 98 10/05/17 22:00 78 10/05/17 21:30 97 40 10/05/17 21:00 98.0 92 26 117/64 (81) 94 10/05/17 20:00 95 Nasal Cannula 5.00 10/05/17 20:00 94 Nasal Cannula 4.00 10/05/17 20:00 103 10/05/17 20:00 98.0 92 22 117/65 (82) 95 10/05/17 19:00 86 19 112/62 (79) 94 I/O 10/05/17 10/05/17 10/05/17 10/06/17 10/06/17 10/06/17 07:00 15:00 23:00 07:00 15:00 23:00 Intake Total 360 ml 240 ml 250 ml Output Total 1625 ml 1500 ml 1350 ml Balance -1625 ml -1140 ml -1110 ml 250 ml Intake Oral 360 ml 240 ml IV Total 250 ml Output Urine Total 1625 ml 1500 ml 1350 ml Stool Total 0 ml # Voids 4 # Bowel Movements 0 0 Result Diagram: 10/05/1750 10/05/1750 Objective Remarks GENERAL: SKIN: Warm and dry. HEAD: Atraumatic. Normocephalic. EYES: Pupils equal and round. No scleral icterus. No injection or drainage. ENT: No nasal bleeding or discharge. Mucous membranes pink and moist. NECK: Trachea midline. No JVD. CARDIOVASCULAR: Regular rate and rhythm. RESPIRATORY: No accessory muscle use. Clear to auscultation. Breath sounds equal bilaterally. GASTROINTESTINAL: Abdomen soft, non-tender, nondistended. Hepatic and splenic margins not palpable. MUSCULOSKELETAL: Extremities without clubbing, cyanosis, or edema. No obvious deformities. NEUROLOGICAL: Awake and alert. No obvious cranial nerve deficits. Motor grossly within normal limits. Five out of 5 muscle strength in the arms and legs. Normal speech. PSYCHIATRIC: Appropriate mood and affect; insight and judgment normal. Assessment and Plan Assessment and Plan respiratory failure hypoxic and hypercapnic COPD EXACERBATION PLAN O2/BIPAP NEEDED BRONCHODILATOR THERAPY INCREASE ACTIVITY Angelic Atwood MD Oct 06, 2017 17:15
[2017-10-06] MEDS: ENOXAPARIN SODIUM 40 MG/0.4 ML SYRINGE SQ SCH (19:34)
[2017-10-06] MEDS: PRAVASTATIN SOD 40 MG TAB PO SCH (21:12)
[2017-10-07] VITALS (21 sets, daily range): BP systolic 102–139; BP diastolic 49–72; PULSE 68–100; RESP 17–44; TEMP 97.6–98.5; O2SAT 89–96
[2017-10-07] MEDS: methylPREDNISolone SOD SUCC 125 MG/2 ML VIAL IV PUSH SCH ×3 (02:01→17:00)
[2017-10-07] MEDS: RESP: ALBUTEROL 2.5 MG/IPRATROPIUM 0.5 MG NEB (SCH) NEB ×3 (07:41→19:57)
[2017-10-07] MEDS: TIOTROPIUM BROMIDE 18 MCG INH INH SCH (09:00)
[2017-10-07] MEDS: BUDESONIDE-FORMOTEROL 160/4.5 MCG INHALER INH SCH ×2 (09:00→21:11)
--- NOTE | 2017-10-07 09:21 | HHI.PR ---
Subjective Remarks Follow up COPD exacerbation. Patient seen and examined, sitting up in bed on 3 L NC, eating breakfast. Patient states he slept well, used the BIPAP all night. He still complaints of dyspnea and wheezing. Denies any fever, chills, chest pain, ab pain, n/v/d. Continues to display some accessory muscle use with breathing. at bedside and updated daughter by phone. Objective Vitals Vital Signs Date Time Temp Pulse Resp B/P (MAP) Pulse Ox O2 Delivery O2 Flow Rate FiO2 10/07/17 07:41 96 Nasal Cannula 3.00 10/07/17 04:39 95 35 10/07/17 04:01 98.5 68 17 111/60 (77) 95 10/07/17 02:04 68 17 107/65 (79) 95 10/07/17 01:00 96 35 10/07/17 00:01 98.2 74 18 102/49 (66) 94 10/06/17 23:02 68 10/06/17 23:00 98 Bi-Pap 35 10/06/17 22:18 97 35 10/06/17 22:00 78 15 126/70 (88) 95 10/06/17 20:08 98 35 10/06/17 20:01 98.0 92 28 129/67 (87) 97 10/06/17 20:00 100 Nasal Cannula 3.00 10/06/17 19:55 94 Nasal Cannula 3.00 10/06/17 19:30 76 36 127/68 (87) 96 10/06/17 16:00 97.6 74 29 104/54 (71) 92 10/06/17 15:00 80 10/06/17 12:00 98.3 78 30 118/58 (78) 97 I/O 10/06/17 10/06/17 10/06/17 10/07/17 10/07/17 10/07/17 07:00 15:00 23:00 07:00 15:00 23:00 Intake Total 240 ml 1210 ml Output Total 1350 ml 1750 ml 1200 ml Balance -1110 ml -540 ml -1200 ml Intake Oral 240 ml 960 ml IV Total 250 ml Output Urine Total 1350 ml 1750 ml 1200 ml Stool Total 0 ml # Voids 4 # Bowel Movements 0 0 Result Diagram: 10/05/17 0550 10/05/17 0550 Imaging Last Impressions Chest X-Ray 10/05/17 0000 Signed Impressions: Service Date/Time: Thursday, October 05, 2017 19:49 - CONCLUSION: No acute cardiopulmonary disease demonstrated. Prasad Saxena MD Objective Remarks GENERAL: This is a well-nourished, well-developed patient, on NC eating breakfast, dyspneic, accessory muscle use. Awake, alert and oriented x4. SKIN: No rashes, ecchymoses or lesions. Warm and dry. HEENT: Atraumatic. Normocephalic. Pupils equal round and reactive. Extraocular motions intact. No scleral icterus. No injection or drainage. Nose without bleeding. Airway patent. NECK: Trachea midline. No JVD. Supple. CARDIOVASCULAR: Regular rate and rhythm without murmurs, gallops, or rubs. RESPIRATORY: Expiratory wheezing heard in bilateral upper lobes. Breath sounds equal bilaterally. GASTROINTESTINAL: Abdomen soft, non-tender, nondistended. No guarding. MUSCULOSKELETAL: Extremities without clubbing, cyanosis, or edema. No joint tenderness, effusion, or edema noted. NEUROLOGICAL: Awake and alert. Cranial nerves II through XII intact. Motor and sensory grossly within normal limits. Five out of 5 muscle strength in all muscle groups. A/P Problem List: (1) COPD exacerbation ICD Code: J44.1 - Chronic obstructive pulmonary disease with (acute) exacerbation Status: Acute Plan: With respiratory failure secondary to hypercapnia and hypoxemic respiratory failure in a patient with known Acute on chronic COPD Continue IV steroids, Methylprednisolone 60 mg q8hr. Continue nebulized bronchodilators and IV antibiotics Pulmonology following. Patient is on NC3L. Will check ABG. Full code per patient (2) Pacemaker ICD Code: Z95.0 - Presence of cardiac pacemaker Status: Chronic Plan: CAD with presence of pacemaker Continue home aspirin and Cardizem. 2-D ECHO resulted showing EF 35-40%. No ECHO to compare in EMR, patient is unaware of prior ECHO or EF %. Patient is not in acute heart failure. Does follow with [facility], Dr. Roper, was last seen last month. Will obtain a recent ECHO and last progress note from his office. Spoke to , daughter and patient at length regarding the ECHO results and plan. (3) Dyslipidemia ICD Code: E78.5 - Hyperlipidemia, unspecified Plan: Continue home statin. (4) Atrial fibrillation ICD Code: I48.91 - Unspecified atrial fibrillation Plan: Rate controlled, continue Cardizem and aspirin (5) Tobacco dependence ICD Code: F17.200 - Nicotine dependence, unspecified, uncomplicated Status: Chronic Plan: Patient counselled on cessation. DVT prophylaxis: Lovenox. GI Prophylaxis: Protonix. Full Code. Magalie Tejada Oct 07, 2017 09:21
[2017-10-07 09:54] LABS: BLOOD GAS BASE EXCESS 10.2 mmol/L (-2-2); BLOOD GAS CARBOXYHEMOGLOBIN 0.8 % (0-4); BLOOD GAS HCO3 36 mmol/L (22-26); BLOOD GAS METHEMOGLOBIN 1.1 % (0-2); BLOOD GAS O2 HGB SATURATION 94 % (90-100); BLOOD GAS OXYGEN CONTENT 16.5 Vol % (12.0-20.0); BLOOD GAS PCO2 72 mmHg (38-42); BLOOD GAS PO2 78 mmHg (61-120); BLOOD GAS TOTAL HGB 12.5 G/DL (12.0-16.0)
[2017-10-07 09:56] LABS: CRITICAL VALUE YES; DRAW SITE LT RADIAL; LITER FLOW 3.5 L/M; NUMBER OF ARTERIAL PUNCTURES 1; OXYGEN DEVICE NASAL CANNULA; STAT NO; ULNAR PULSE PRESENT
[2017-10-07] MEDS: SODIUM CHLORIDE 0.9% FLUSH 10 ML FLUSH IV FLUSH SCH ×2 (09:56→21:11)
[2017-10-07] MEDS: DILTIAZEM-CD 240 MG CAP ER PO SCH (09:56)
[2017-10-07] MEDS: PANTOPRAZOLE SOD 40 MG DELAYED RELEASE TAB PO SCH (09:56)
[2017-10-07] MEDS: ASPIRIN 325 MG TAB PO SCH (09:56)
[2017-10-07] MEDS: AZITHROMYCIN INJ 500 MG in SODIUM CHLOR 0.9% 250 ML INJ 250 ML IV SCH (12:00)
--- NOTE | 2017-10-07 14:48 | HHI.PR ---
Subjective Remarks alert o2 sat 05% on 02 N/C Objective Vital Signs Date Time Temp Pulse Resp B/P (MAP) Pulse Ox O2 Delivery O2 Flow Rate FiO2 10/07/17 12:01 78 44 139/68 (91) 95 10/07/17 12:00 74 33 95 10/07/17 09:00 92 10/07/17 09:00 92 37 95 10/07/17 09:00 95 Nasal Cannula 3.00 10/07/17 08:01 94 Nasal Cannula 3.00 10/07/17 08:01 80 32 132/72 (92) 94 10/07/17 08:01 80 10/07/17 08:00 84 10/07/17 08:00 96 Nasal Cannula 3.00 10/07/17 08:00 84 31 96 10/07/17 07:58 97 Nasal Cannula 3.00 10/07/17 07:58 74 10/07/17 07:41 96 Nasal Cannula 3.00 10/07/17 07:00 68 10/07/17 07:00 96 Nasal Cannula 3.00 10/07/17 04:39 95 35 10/07/17 04:01 98.5 68 17 111/60 (77) 95 10/07/17 02:04 68 17 107/65 (79) 95 10/07/17 01:00 96 35 10/07/17 00:01 98.2 74 18 102/49 (66) 94 10/06/17 23:02 68 10/06/17 23:00 98 Bi-Pap 35 10/06/17 22:18 97 35 10/06/17 22:00 78 15 126/70 (88) 95 10/06/17 20:08 98 35 10/06/17 20:01 98.0 92 28 129/67 (87) 97 10/06/17 20:00 100 Nasal Cannula 3.00 10/06/17 19:55 94 Nasal Cannula 3.00 10/06/17 19:30 76 36 127/68 (87) 96 10/06/17 16:00 97.6 74 29 104/54 (71) 92 10/06/17 15:00 80 I/O 10/06/17 10/06/17 10/06/17 10/07/17 10/07/17 10/07/17 07:00 15:00 23:00 07:00 15:00 23:00 Intake Total 240 ml 1210 ml Output Total 1350 ml 1750 ml 1200 ml Balance -1110 ml -540 ml -1200 ml Intake Oral 240 ml 960 ml IV Total 250 ml Output Urine Total 1350 ml 1750 ml 1200 ml Stool Total 0 ml # Voids 4 # Bowel Movements 0 0 Result Diagram: 10/05/1750 10/05/1750 Objective Remarks GENERAL: SKIN: Warm and dry. HEAD: Atraumatic. Normocephalic. EYES: Pupils equal and round. No scleral icterus. No injection or drainage. ENT: No nasal bleeding or discharge. Mucous membranes pink and moist. NECK: Trachea midline. No JVD. CARDIOVASCULAR: Regular rate and rhythm. RESPIRATORY: No accessory muscle use. Clear to auscultation. Breath sounds equal bilaterally. GASTROINTESTINAL: Abdomen soft, non-tender, nondistended. Hepatic and splenic margins not palpable. MUSCULOSKELETAL: Extremities without clubbing, cyanosis, or edema. No obvious deformities. NEUROLOGICAL: Awake and alert. No obvious cranial nerve deficits. Motor grossly within normal limits. Five out of 5 muscle strength in the arms and legs. Normal speech. PSYCHIATRIC: Appropriate mood and affect; insight and judgment normal. Assessment and Plan Assessment and Plan respiratory failure hypoxic and hypercapnic COPD EXACERBATION PLAN O2/BIPAP NEEDED BRONCHODILATOR THERAPY INCREASE ACTIVITY Angelic Atwood MD Oct 07, 2017 14:48
[2017-10-07] MEDS: PRAVASTATIN SOD 40 MG TAB PO SCH (21:10)
[2017-10-07] MEDS: ENOXAPARIN SODIUM 40 MG/0.4 ML SYRINGE SQ SCH (21:11)
[2017-10-08] VITALS (16 sets, daily range): BP systolic 113–137; BP diastolic 48–70; PULSE 62–114; RESP 16–39; TEMP 97.2–98.6; O2SAT 88–96
[2017-10-08] MEDS: methylPREDNISolone SOD SUCC 125 MG/2 ML VIAL IV PUSH SCH ×3 (03:27→16:56)
[2017-10-08] MEDS: SODIUM CHLORIDE 0.9% FLUSH 10 ML FLUSH IV FLUSH PRN (03:27)
[2017-10-08] MEDS: RESP: ALBUTEROL 2.5 MG/IPRATROPIUM 0.5 MG NEB (SCH) NEB ×3 (07:48→19:26)
[2017-10-08] MEDS: ASPIRIN 325 MG TAB PO SCH (09:00)
[2017-10-08] MEDS: SODIUM CHLORIDE 0.9% FLUSH 10 ML FLUSH IV FLUSH SCH ×2 (09:00→19:39)
[2017-10-08] MEDS: DILTIAZEM-CD 240 MG CAP ER PO SCH (09:00)
[2017-10-08] MEDS: BUDESONIDE-FORMOTEROL 160/4.5 MCG INHALER INH SCH ×2 (09:00→19:39)
[2017-10-08] MEDS: PANTOPRAZOLE SOD 40 MG DELAYED RELEASE TAB PO SCH (09:00)
[2017-10-08] MEDS: TIOTROPIUM BROMIDE 18 MCG INH INH SCH (09:00)
[2017-10-08] MEDS: AZITHROMYCIN INJ 500 MG in SODIUM CHLOR 0.9% 250 ML INJ 250 ML IV SCH (13:15)
--- NOTE | 2017-10-08 17:39 | HHI.PR ---
Subjective Remarks alert o2 sat 93% on N/C still SOB BUT LESS Objective Vital Signs Date Time Temp Pulse Resp B/P (MAP) Pulse Ox O2 Delivery O2 Flow Rate FiO2 10/08/17 16:00 Room Air 3.00 30 10/08/17 16:00 97.8 99 124/70 (88) 10/08/17 14:00 98 33 88 10/08/17 12:00 Room Air 3.00 30 10/08/17 12:00 88 28 94 10/08/17 10:00 106 33 92 10/08/17 09:31 104 39 131/48 (75) 90 10/08/17 08:00 Room Air 3.00 10/08/17 08:00 97.9 76 31 95 10/08/17 07:50 95 Nasal Cannula 3.00 10/08/17 07:00 78 32 93 10/08/17 04:00 62 18 119/60 (79) 94 10/08/17 03:05 93 30 10/08/17 00:32 94 30 10/08/17 00:00 97.2 76 16 113/53 (73) 94 10/08/17 00:00 93 Bi-Pap 30 10/08/17 00:00 76 10/07/17 22:28 96 30 10/07/17 22:28 96 Bi-Pap 30 10/07/17 22:00 84 21 95 10/07/17 20:01 97.6 74 17 123/69 (87) 94 10/07/17 20:00 78 10/07/17 19:57 91 Nasal Cannula 2.00 10/07/17 19:00 90 Nasal Cannula 2.00 I/O 10/07/17 10/07/17 10/07/17 10/08/17 10/08/17 10/08/17 07:00 15:00 23:00 07:00 15:00 23:00 Intake Total 1000 ml 1580 ml Output Total 1200 ml 1000 ml 1600 ml 650 ml Balance -1200 ml 0 ml -20 ml -650 ml Intake Oral 1000 ml 1580 ml Output Urine Total 1200 ml 1000 ml 1600 ml 650 ml # Voids 5 5 # Bowel Movements 1 Result Diagram: 10/05/17 0550 10/05/17 0550 Objective Remarks GENERAL: SKIN: Warm and dry. HEAD: Atraumatic. Normocephalic. EYES: Pupils equal and round. No scleral icterus. No injection or drainage. ENT: No nasal bleeding or discharge. Mucous membranes pink and moist. NECK: Trachea midline. No JVD. CARDIOVASCULAR: Regular rate and rhythm. RESPIRATORY: No accessory muscle use. Clear to auscultation. Breath sounds equal bilaterally. GASTROINTESTINAL: Abdomen soft, non-tender, nondistended. Hepatic and splenic margins not palpable. MUSCULOSKELETAL: Extremities without clubbing, cyanosis, or edema. No obvious deformities. NEUROLOGICAL: Awake and alert. No obvious cranial nerve deficits. Motor grossly within normal limits. Five out of 5 muscle strength in the arms and legs. Normal speech. PSYCHIATRIC: Appropriate mood and affect; insight and judgment normal. Assessment and Plan Assessment and Plan respiratory failure hypoxic and hypercapnic COPD EXACERBATION PLAN O2/BIPAP NEEDED BRONCHODILATOR THERAPY INCREASE ACTIVITY OK FOR [facility] Angelic Atwood MD Oct 08, 2017 17:39
[2017-10-08] MEDS: PRAVASTATIN SOD 40 MG TAB PO SCH (19:39)
[2017-10-08] MEDS: ENOXAPARIN SODIUM 40 MG/0.4 ML SYRINGE SQ SCH (19:39)
--- NOTE | 2017-10-08 21:49 | HHI.PR ---
Subjective Remarks Follow up for COPD exacerbation. Patient was seen around 2:00PM. Patient is doing well. He complains of trouble with exhalation. No fever, chills. He is currently on 3L of O2 via NC. Objective Vitals Vital Signs Date Time Temp Pulse Resp B/P (MAP) Pulse Ox O2 Delivery O2 Flow Rate FiO2 10/08/17 16:00 Room Air 3.00 30 10/08/17 16:00 97.8 99 124/70 (88) 10/08/17 14:00 98 33 88 10/08/17 12:00 Room Air 3.00 30 10/08/17 12:00 88 28 94 10/08/17 10:00 106 33 92 10/08/17 09:31 104 39 131/48 (75) 90 10/08/17 08:00 Room Air 3.00 10/08/17 08:00 97.9 76 31 95 10/08/17 07:50 95 Nasal Cannula 3.00 10/08/17 07:00 78 32 93 10/08/17 04:00 62 18 119/60 (79) 94 10/08/17 03:05 93 30 10/08/17 00:32 94 30 10/08/17 00:00 97.2 76 16 113/53 (73) 94 10/08/17 00:00 93 Bi-Pap 30 10/08/17 00:00 76 10/07/17 22:28 96 30 10/07/17 22:28 96 Bi-Pap 30 10/07/17 22:00 84 21 95 I/O 10/07/17 10/07/17 10/07/17 10/08/17 10/08/17 10/08/17 06:59 14:59 22:59 06:59 14:59 22:59 Intake Total 1000 ml 1580 ml 240 ml Output Total 1200 ml 1000 ml 1600 ml 650 ml Balance -1200 ml 0 ml -20 ml -410 ml Intake Oral 1000 ml 1580 ml 240 ml Output Urine Total 1200 ml 1000 ml 1600 ml 650 ml # Voids 5 5 # Bowel Movements 1 Result Diagram: 10/05/17 0550 10/05/17 0550 Imaging Last Impressions Chest X-Ray 10/05/17 0000 Signed Impressions: Service Date/Time: Thursday, October 05, 2017 19:49 - CONCLUSION: No acute cardiopulmonary disease demonstrated. Prasad Saxena MD Objective Remarks GENERAL: Alert, oriented x 3, NAD. SKIN: Warm and dry. HEAD: Normocephalic. EYES: No scleral icterus. No injection or drainage. NECK: Supple, trachea midline. No JVD or lymphadenopathy. CARDIOVASCULAR: Regular rate and rhythm without murmurs, gallops, or rubs. RESPIRATORY: Poor air entry, diffuse expiratory wheezes, coarse breath sounds. Accessory muscle use noted (abdominal muscle). GASTROINTESTINAL: Abdomen soft, non-tender, nondistended. MUSCULOSKELETAL: No cyanosis, or edema. BACK: Nontender without obvious deformity. No CVA tenderness. Procedures None. A/P Problem List: (1) COPD exacerbation ICD Code: J44.1 - Chronic obstructive pulmonary disease with (acute) exacerbation Status: Acute (2) Pacemaker ICD Code: Z95.0 - Presence of cardiac pacemaker Status: Chronic (3) Dyslipidemia ICD Code: E78.5 - Hyperlipidemia, unspecified (4) Atrial fibrillation ICD Code: I48.91 - Unspecified atrial fibrillation (5) Tobacco dependence ICD Code: F17.200 - Nicotine dependence, unspecified, uncomplicated Status: Chronic Assessment and Plan Mr. Ortiz is a 67 year old male with a history of COPD, pacemaker placement who was admitted on 10/04/2017 due to shortness of breath. - COPD exacerbation - Currently patient is on 3L of O2 via NC - BiPAP PRN - Pulmonology following - Will switch abx from Azithromycin to Levaquin PO. - Switch steroid to PO as well. Prednisone total 50 mg Qday. - Continue DuoNeb PRN , Symbicort, Spiriva. - Atrial fibrillation - Hyperlipidemia - Continue Diltiazem 240mg Qday. - Continue Aspirin. [id number] score 1 (Age). Follows up with [facility]. - Continue Pravastatin 40mg QHS. - Will get a PT eval. Full code. Lovenox. Deanna Barragan DO Oct 08, 2017 21:49
[2017-10-09] VITALS (13 sets, daily range): BP systolic 93–140; BP diastolic 54–76; PULSE 64–102; RESP 12–31; TEMP 97.3–98.6; O2SAT 89–96
[2017-10-09] MEDS ORDERED: RESP: ALBUTEROL 2.5 MG/IPRATROPIUM 0.5 MG NEB (PRN) NEB (00:45)
[2017-10-09] MEDS: SODIUM CHLORIDE 0.9% FLUSH 10 ML FLUSH IV FLUSH SCH ×2 (08:40→20:26)
[2017-10-09] MEDS: ASPIRIN 325 MG TAB PO SCH (08:40)
[2017-10-09] MEDS: PANTOPRAZOLE SOD 40 MG DELAYED RELEASE TAB PO SCH (08:40)
[2017-10-09] MEDS: TIOTROPIUM BROMIDE 18 MCG INH INH SCH (08:41)
[2017-10-09] MEDS: DILTIAZEM-CD 240 MG CAP ER PO SCH (08:41)
[2017-10-09] MEDS: BUDESONIDE-FORMOTEROL 160/4.5 MCG INHALER INH SCH ×2 (08:41→20:25)
[2017-10-09] MEDS: LEVOFLOXACIN 750 MG TAB PO SCH (08:41)
[2017-10-09] MEDS: predniSONE 50 MG TAB PO SCH (09:27)
--- NOTE | 2017-10-09 13:06 | HHI.PR ---
Subjective Remarks Follow-up on COPD exacerbation. Nursing denies any deterioration since last night, states that the patient wore BiPAP at night. Patient himself says his breathing is only minimally better compared to yesterday. He says his shortness of breath is still substantially worse compared to baseline at home - says that it is harder to "breathe out". He says he participated in therapy today. Objective Vital Signs Date Time Temp Pulse Resp B/P (MAP) Pulse Ox O2 Delivery O2 Flow Rate FiO2 10/09/17 08:00 73 10/09/17 08:00 95 Nasal Cannula 3.00 10/09/17 08:00 97.3 78 31 140/70 (93) 95 10/09/17 07:46 94 Nasal Cannula 3.00 10/09/17 04:45 95 30 10/09/17 04:07 98.6 64 12 131/76 (94) 96 10/09/17 04:00 Bi-Pap 30 10/09/17 04:00 66 10/09/17 02:05 95 30 10/09/17 01:25 90 35 10/09/17 00:00 74 10/09/17 00:00 97.8 74 16 112/54 (73) 94 10/09/17 00:00 Bi-Pap 30 10/08/17 23:30 92 30 10/08/17 20:55 95 30 10/08/17 20:00 112 10/08/17 20:00 Bi-Pap 30 10/08/17 20:00 98.6 114 28 137/65 (89) 96 10/08/17 19:25 95 Nasal Cannula 3.00 10/08/17 16:00 Room Air 3.00 30 10/08/17 16:00 97.8 99 124/70 (88) 10/08/17 14:00 98 33 88 I/O 10/08/17 10/08/17 10/08/17 10/09/17 10/09/17 10/09/17 07:00 15:00 23:00 07:00 15:00 23:00 Intake Total 1580 ml 240 ml Output Total 1600 ml 650 ml 600 ml Balance -20 ml -410 ml -600 ml Intake Oral 1580 ml 240 ml Output Urine Total 1600 ml 650 ml 600 ml # Voids 5 # Bowel Movements 1 Result Diagram: 10/05/17 0550 10/05/17 0550 Objective Remarks Prominent right-sided rhonchi and crackles, left side is almost clear in comparison Has minimally labored breathing, no cyanosis, no clubbing, NC in nose A/P Assessment and Plan Mr. Ortiz is a 67 year old male with a history of COPD, pacemaker placement who was admitted on 10/04/2017 due to shortness of breath. - COPD exacerbation - Currently patient is on 3L of O2 via NC - d/W RT who will attempt to wean down to 2 L today - BiPAP PRN - Pulmonology following - continue Levaquin PO. - Prednisone 50 mg Qday. - Continue Symbicort and Spiriva, will switch duo nebs from when necessary to scheduled for the time being Unilateral crackles - Appears new compared to previously documented exams, will obtain repeat chest x-ray PA and lateral - Atrial fibrillation - Hyperlipidemia - Continue Diltiazem 240mg Qday. - Continue Aspirin. [id number] score 1 (Age). Follows up with [facility]. - Continue Pravastatin 40mg QHS. - PT Sudhir Allan MD Oct 09, 2017 13:06
--- NOTE | 2017-10-09 14:44 | RADRPT ---
EXAM DATE/TIME: 10/09/2017 13:45 [place] COMPARISON: CHEST SINGLE AP, October 05, 2017, 19:49. CHEST SINGLE AP, October 04, 2017, 9:06. CHEST SINGLE A P, March 15, 2017, 5:52. INDICATIONS : Short of breath. Pneumonia. MEDICAL HISTORY : Chronic obstructive pulmonary disease. Hypercholesterolemia. Emphysema. Vertigo. CHF. Irregular h eart beat. Arthritis. SURGICAL HISTORY : Pacemaker. Appendectomy. Hip repacement, right. Eardrum repair/replacement. ENCOUNTER: Initial ACUITY: 4 - 6 days PAIN SCORE: 0/10 LOCATION: chest FINDINGS: PA and lateral views of the chest demonstrate increasing interstitial prominence especially in both l yeimy bases. Pleural-parenchymal scarring is again noted in the left base. Lungs are hyperinflated. Cardiac pacemaker is in stable position. Heart remains normal in size. CONCLUSION: 1. Increasing interstitial prominence which may represent mild pulmonary congestion considering the d egree of COPD. 2. No evidence of consolidating airspace disease. 3. Left pleural parenchymal scarring. 4. Stable pacemaker. Mario Aguayo MD on October 09, 2017 at 14:39 Board Certified Radiologist. This report was verified electronically.
[2017-10-09] MEDS ORDERED: FUROSEMIDE 40 MG/4 ML VIAL IV PUSH ONE (15:30)
[2017-10-09] MEDS: RESP: ALBUTEROL 2.5 MG/IPRATROPIUM 0.5 MG NEB (SCH) NEB ×2 (15:41→21:55)
[2017-10-09] MEDS: METOPROLOL SUCCINATE 25 MG EXTENDED RELEASE TAB PO SCH (16:48)
[2017-10-09] MEDS: LISINOPRIL 5 MG TAB PO SCH (16:48)
[2017-10-09] MEDS: PILL SPLITTER OTHER PRN (16:48)
[2017-10-09] MEDS: POTASSIUM CHLORIDE 10 MEQ CONTROLLED RELEASE TAB PO SCH (16:49)
[2017-10-09] MEDS: PRAVASTATIN SOD 40 MG TAB PO SCH (20:26)
[2017-10-09] MEDS: ENOXAPARIN SODIUM 40 MG/0.4 ML SYRINGE SQ SCH (20:26)
[2017-10-09] MEDS ORDERED: FUROSEMIDE 20 MG/2 ML VIAL IV PUSH ONE (21:00)
[2017-10-10] VITALS (20 sets, daily range): BP systolic 89–119; BP diastolic 54–68; PULSE 46–118; RESP 17–42; TEMP 97.5–98.5; O2SAT 90–97
[2017-10-10] MEDS: RESP: ALBUTEROL 2.5 MG/IPRATROPIUM 0.5 MG NEB (SCH) NEB ×4 (03:42→21:01)
[2017-10-10 05:08] LABS: POTASSIUM 3.7 MEQ/L (3.5-5.1)
[2017-10-10 05:11] LABS: BICARBONATE 43.8 MEQ/L (21.0-32.0)
--- NOTE | 2017-10-10 08:52 | HHI.PR ---
Subjective Remarks ALERT o2 sat 93% on 02 N/C needs BIPAP ESPECIALY DURING SLEEP still SOB BUT LESS Objective Vital Signs Date Time Temp Pulse Resp B/P (MAP) Pulse Ox O2 Delivery O2 Flow Rate FiO2 10/10/17 04:50 93 30 10/10/17 04:00 46 10/10/17 04:00 96 Room Air 10/10/17 04:00 98.5 100 20 94/58 (70) 95 10/10/17 01:20 91 30 10/10/17 00:00 94 Nasal Cannula 30 Bi-Pap 10/10/17 00:00 97.5 114 18 110/55 (73) 97 10/10/17 00:00 114 10/09/17 22:15 95 30 10/09/17 22:00 93 Nasal Cannula 3.00 10/09/17 20:00 97 Nasal Cannula 4.00 10/09/17 20:00 98.1 75 16 124/74 (91) 92 10/09/17 20:00 102 10/09/17 16:27 89 Nasal Cannula 3.00 10/09/17 16:00 98.3 98 29 126/70 (88) 89 10/09/17 16:00 98 10/09/17 12:00 95 Nasal Cannula 3.00 10/09/17 12:00 88 10/09/17 12:00 97.8 88 23 93/60 (71) 91 I/O 10/09/17 10/09/17 10/09/17 10/10/17 10/10/17 10/10/17 07:00 15:00 23:00 07:00 15:00 23:00 Intake Total 1200 ml 120 ml Output Total 600 ml 2400 ml 1000 ml Balance -600 ml -1200 ml -880 ml Intake Oral 1200 ml 120 ml Output Urine Total 600 ml 2400 ml 1000 ml # Bowel Movements 0 0 Result Diagram: 10/10/17 0425 Objective Remarks GENERAL: SKIN: Warm and dry. HEAD: Atraumatic. Normocephalic. EYES: Pupils equal and round. No scleral icterus. No injection or drainage. ENT: No nasal bleeding or discharge. Mucous membranes pink and moist. NECK: Trachea midline. No JVD. CARDIOVASCULAR: Regular rate and rhythm. RESPIRATORY: No accessory muscle use. Clear to auscultation. Breath sounds equal bilaterally. GASTROINTESTINAL: Abdomen soft, non-tender, nondistended. Hepatic and splenic margins not palpable. MUSCULOSKELETAL: Extremities without clubbing, cyanosis, or edema. No obvious deformities. NEUROLOGICAL: Awake and alert. No obvious cranial nerve deficits. Motor grossly within normal limits. Five out of 5 muscle strength in the arms and legs. Normal speech. PSYCHIATRIC: Appropriate mood and affect; insight and judgment normal. Assessment and Plan Assessment and Plan respiratory failure hypoxic and hypercapnic COPD EXACERBATION CXRAY MILD CONGESTION PLAN O2/BIPAP NEEDED BRONCHODILATOR THERAPY INCREASE ACTIVITY OK FOR [facility] Angelic Atwood MD Oct 10, 2017 08:52
[2017-10-10] MEDS: METOPROLOL SUCCINATE 25 MG EXTENDED RELEASE TAB PO SCH ×2 (09:00→10:28)
[2017-10-10] MEDS: LISINOPRIL 5 MG TAB PO SCH (09:00)
[2017-10-10] MEDS: SODIUM CHLORIDE 0.9% FLUSH 10 ML FLUSH IV FLUSH SCH ×2 (09:00→21:22)
[2017-10-10] MEDS: BUDESONIDE-FORMOTEROL 160/4.5 MCG INHALER INH SCH ×2 (09:41→21:22)
[2017-10-10] MEDS: TIOTROPIUM BROMIDE 18 MCG INH INH SCH (09:42)
[2017-10-10] MEDS: PANTOPRAZOLE SOD 40 MG DELAYED RELEASE TAB PO SCH (09:42)
[2017-10-10] MEDS: DILTIAZEM-CD 240 MG CAP ER PO SCH (09:42)
[2017-10-10] MEDS: LEVOFLOXACIN 750 MG TAB PO SCH (09:42)
[2017-10-10] MEDS: predniSONE 50 MG TAB PO SCH (09:43)
[2017-10-10] MEDS: POTASSIUM CHLORIDE 10 MEQ CONTROLLED RELEASE TAB PO SCH (09:43)
[2017-10-10] MEDS: ASPIRIN 325 MG TAB PO SCH (09:43)
--- NOTE | 2017-10-10 14:35 | HHI.PR ---
Subjective Remarks Follow-up on COPD exacerbation. Nursing reports improved down to 2 L and needed 3 L while doing therapy today. When asking patient himself he says he feels just a little bit better compared to yesterday but still is far from being comfortable about going home in the current state. Still reports having difficulty "breathing out." Objective Vital Signs Date Time Temp Pulse Resp B/P (MAP) Pulse Ox O2 Delivery O2 Flow Rate FiO2 10/10/17 12:00 97.9 118 32 90 10/10/17 12:00 91 Nasal Cannula 3.00 10/10/17 12:00 100 10/10/17 11:57 110 34 101/58 (72) 92 10/10/17 11:06 116 24 102/54 (70) 93 10/10/17 11:00 110 24 89/66 (74) 93 10/10/17 10:32 92 Nasal Cannula 3.00 10/10/17 10:21 100 42 119/63 (81) 93 10/10/17 10:00 98 23 10/10/17 09:15 82 30 100/68 (79) 95 10/10/17 09:00 92 17 96 10/10/17 08:00 98 10/10/17 08:00 93 Nasal Cannula 2.00 10/10/17 08:00 88 17 95 10/10/17 08:00 97.9 10/10/17 07:00 80 19 95 10/10/17 04:50 93 30 10/10/17 04:00 46 10/10/17 04:00 96 Room Air 10/10/17 04:00 98.5 100 20 94/58 (70) 95 10/10/17 01:20 91 30 10/10/17 00:00 94 Nasal Cannula 30 Bi-Pap 10/10/17 00:00 97.5 114 18 110/55 (73) 97 10/10/17 00:00 114 10/09/17 22:15 95 30 10/09/17 22:00 93 Nasal Cannula 3.00 10/09/17 20:00 97 Nasal Cannula 4.00 10/09/17 20:00 98.1 75 16 124/74 (91) 92 10/09/17 20:00 102 10/09/17 16:27 89 Nasal Cannula 3.00 10/09/17 16:00 98.3 98 29 126/70 (88) 89 10/09/17 16:00 98 I/O 10/09/17 10/09/17 10/09/17 10/10/17 10/10/17 10/10/17 07:00 15:00 23:00 07:00 15:00 23:00 Intake Total 1200 ml 120 ml Output Total 600 ml 2400 ml 1000 ml Balance -600 ml -1200 ml -880 ml Intake Oral 1200 ml 120 ml Output Urine Total 600 ml 2400 ml 1000 ml # Bowel Movements 0 0 Result Diagram: 10/10/17 0425 Objective Remarks coarse BS BL Has minimally labored breathing while sitting in chair, no cyanosis, no clubbing , NC in nose A/P Assessment and Plan Mr. Ortiz is a 67 year old male with a history of COPD, pacemaker placement who was admitted on 10/04/2017 due to shortness of breath. Acute on chronic respiratory failure - Likely multifactorial given that he has a poor ejection fraction along with frail lungs indicating a COPD exacerbation - Now down to 2-3 L today, - BiPAP PRN - Pulmonology following - continue Levaquin PO. - I will transient ramp up the patient's steroids from prednisone to 125 mg solumedrol, given his frail lung condition I feel that he should always start off with a 125 mg of IV Solu-Medrol for at least 24 hours prior to being D escalated - Continue Symbicort and Spiriva, will switch duo nebs from when necessary to scheduled for the time being Unilateral crackles - improved per exam once diuresis was started given low EF of 35%, continue lasix for now Acute systolic CHF - continue lisinopril, bblockers, and lasix - Atrial fibrillation Downgrading to baby aspirin. [id number] score now a 2 (Age + CHF). Follows up with [facility]. Lovenox for now, anticipate transition to NOAC upon discharge. - Hyperlipidemia - Continue Diltiazem 240mg Qday. - Continue Pravastatin 40mg QHS. - PT Sudhir Allan MD Oct 10, 2017 14:35
[2017-10-10] MEDS: methylPREDNISolone SOD SUCC 125 MG/2 ML VIAL IV PUSH SCH ×2 (15:11→21:21)
[2017-10-10] MEDS: ENOXAPARIN SODIUM 40 MG/0.4 ML SYRINGE SQ SCH (20:11)
[2017-10-10] MEDS: PRAVASTATIN SOD 40 MG TAB PO SCH (21:21)
[2017-10-11] VITALS (14 sets, daily range): BP systolic 83–116; BP diastolic 23–84; PULSE 76–112; RESP 15–23; TEMP 96.8–98.9; O2SAT 91–96
[2017-10-11] MEDS: RESP: ALBUTEROL 2.5 MG/IPRATROPIUM 0.5 MG NEB (SCH) NEB ×4 (04:18→21:10)
[2017-10-11] MEDS ORDERED: methylPREDNISolone SOD SUCC 125 MG/2 ML VIAL IV PUSH SCH (09:00)
[2017-10-11] MEDS: BUDESONIDE-FORMOTEROL 160/4.5 MCG INHALER INH SCH ×2 (09:02→19:42)
[2017-10-11] MEDS: TIOTROPIUM BROMIDE 18 MCG INH INH SCH (09:02)
[2017-10-11] MEDS: SODIUM CHLORIDE 0.9% FLUSH 10 ML FLUSH IV FLUSH SCH ×2 (09:03→19:44)
[2017-10-11] MEDS: PILL SPLITTER OTHER PRN (09:03)
[2017-10-11] MEDS: METOPROLOL SUCCINATE 25 MG EXTENDED RELEASE TAB PO SCH (09:04)
[2017-10-11] MEDS: ASPIRIN 325 MG TAB PO SCH (09:04)
[2017-10-11] MEDS: POTASSIUM CHLORIDE 10 MEQ CONTROLLED RELEASE TAB PO SCH (09:05)
[2017-10-11] MEDS: LISINOPRIL 5 MG TAB PO SCH (09:05)
[2017-10-11] MEDS: PANTOPRAZOLE SOD 40 MG DELAYED RELEASE TAB PO SCH (09:05)
[2017-10-11] MEDS: LEVOFLOXACIN 750 MG TAB PO SCH (09:05)
[2017-10-11] MEDS: DILTIAZEM-CD 240 MG CAP ER PO SCH (09:05)
--- NOTE | 2017-10-11 15:22 | HHI.PR ---
Subjective Remarks Follow-up on COPD exacerbation. Nursing reports that she her the patient's say to his that he he feels that he can breathe better today. Patient himself affirms this, says he can breathe without much better today. Currently holding steady at home 2 L. Objective Vital Signs Date Time Temp Pulse Resp B/P (MAP) Pulse Ox O2 Delivery O2 Flow Rate FiO2 10/11/17 12:00 92 Nasal Cannula 2.00 10/11/17 12:00 110 10/11/17 12:00 96.8 112 18 83/56 (65) 92 10/11/17 10:00 110 10/11/17 09:22 92 Nasal Cannula 10/11/17 08:00 90 10/11/17 08:00 97.5 86 17 105/65 (78) 92 10/11/17 08:00 91 Nasal Cannula 2.00 10/11/17 07:40 93 Nasal Cannula 2.00 10/11/17 07:40 92 Nasal Cannula 2.00 10/11/17 04:18 95 30 10/11/17 04:00 93 Bi-Pap 30 10/11/17 04:00 79 10/11/17 04:00 97.8 79 15 102/62 (75) 93 10/11/17 00:47 96 30 10/11/17 00:00 96 Bi-Pap 30 10/11/17 00:00 98.9 83 18 107/84 (92) 95 10/11/17 00:00 76 10/10/17 22:05 93 30 10/10/17 21:01 93 Nasal Cannula 2.00 10/10/17 20:00 95 10/10/17 20:00 97.5 83 20 105/59 (74) 92 10/10/17 20:00 92 Nasal Cannula 2.00 10/10/17 16:10 84 19 91/55 (67) 93 10/10/17 16:00 90 19 90 10/10/17 16:00 102 10/10/17 16:00 97.7 10/10/17 16:00 91 2.00 I/O 10/10/17 10/10/17 10/10/17 10/11/17 10/11/17 10/11/17 07:00 15:00 23:00 07:00 15:00 23:00 Intake Total 120 ml 120 ml Output Total 1000 ml 725 ml 600 ml Balance -880 ml -725 ml -480 ml Intake Oral 120 ml 120 ml Output Urine Total 1000 ml 725 ml 600 ml # Bowel Movements 0 0 Result Diagram: 10/10/17 0425 Objective Remarks no cyanosis, NC in place improved BS BL and with milder expiratory wheezing A/P Assessment and Plan Mr. Ortiz is a 67 year old male with a history of COPD, pacemaker placement who was admitted on 10/04/2017 due to shortness of breath. Acute on chronic respiratory failure - WOB nearing baseline, down to home 2 L - BiPAP PRN - Pulmonology following - continue Levaquin PO. - IV solumedrol, transition to orals either tomorrow or Saturday - Continue Symbicort and Spiriva, will switch duo nebs from when necessary to scheduled for the time being Acute systolic CHF - continue lisinopril, bblockers, will transition to oral lasix given good net outpt, and KCL - Atrial fibrillation baby aspirin. [id number] score now a 2 (Age + CHF). Follows up with [facility]. Lovenox for now, anticipate transition to NOAC upon discharge. - Hyperlipidemia - Continue Diltiazem 240mg Qday. - Continue Pravastatin 40mg QHS. - PT Sudhir Allan MD Oct 11, 2017 15:22
[2017-10-11] MEDS ORDERED: methylPREDNISolone SOD SUCC 125 MG/2 ML VIAL IV PUSH ONE (16:00)
--- NOTE | 2017-10-11 18:16 | HHI.PR ---
Subjective Remarks ALERT o2 sat 93% on 02 N/C needs BIPAP ESPECIALY DURING SLEEP still SOB BUT LESS Objective Vital Signs Date Time Temp Pulse Resp B/P (MAP) Pulse Ox O2 Delivery O2 Flow Rate FiO2 10/11/17 16:15 96 22 83/55 (64) 92 10/11/17 16:15 98 10/11/17 16:00 100 10/11/17 16:00 97.5 94 16 96/23 (47) 92 10/11/17 16:00 91 Nasal Cannula 2.00 10/11/17 12:00 92 Nasal Cannula 2.00 10/11/17 12:00 110 10/11/17 12:00 96.8 112 18 83/56 (65) 92 10/11/17 10:00 110 10/11/17 09:22 92 Nasal Cannula 10/11/17 08:00 90 10/11/17 08:00 97.5 86 17 105/65 (78) 92 10/11/17 08:00 91 Nasal Cannula 2.00 10/11/17 07:40 93 Nasal Cannula 2.00 10/11/17 07:40 92 Nasal Cannula 2.00 10/11/17 04:18 95 30 10/11/17 04:00 93 Bi-Pap 30 10/11/17 04:00 79 10/11/17 04:00 97.8 79 15 102/62 (75) 93 10/11/17 00:47 96 30 10/11/17 00:00 96 Bi-Pap 30 10/11/17 00:00 98.9 83 18 107/84 (92) 95 10/11/17 00:00 76 10/10/17 22:05 93 30 10/10/17 21:01 93 Nasal Cannula 2.00 10/10/17 20:00 95 10/10/17 20:00 97.5 83 20 105/59 (74) 92 10/10/17 20:00 92 Nasal Cannula 2.00 I/O 10/10/17 10/10/17 10/10/17 10/11/17 10/11/17 10/11/17 07:00 15:00 23:00 07:00 15:00 23:00 Intake Total 120 ml 120 ml 480 ml Output Total 1000 ml 725 ml 600 ml 900 ml Balance -880 ml -725 ml -480 ml -420 ml Intake Oral 120 ml 120 ml 480 ml Output Urine Total 1000 ml 725 ml 600 ml 900 ml # Bowel Movements 0 0 1 Result Diagram: 10/10/17 0425 Objective Remarks GENERAL: SKIN: Warm and dry. HEAD: Atraumatic. Normocephalic. EYES: Pupils equal and round. No scleral icterus. No injection or drainage. ENT: No nasal bleeding or discharge. Mucous membranes pink and moist. NECK: Trachea midline. No JVD. CARDIOVASCULAR: Regular rate and rhythm. RESPIRATORY: No accessory muscle use. Clear to auscultation. Breath sounds equal bilaterally. GASTROINTESTINAL: Abdomen soft, non-tender, nondistended. Hepatic and splenic margins not palpable. MUSCULOSKELETAL: Extremities without clubbing, cyanosis, or edema. No obvious deformities. NEUROLOGICAL: Awake and alert. No obvious cranial nerve deficits. Motor grossly within normal limits. Five out of 5 muscle strength in the arms and legs. Normal speech. PSYCHIATRIC: Appropriate mood and affect; insight and judgment normal. Assessment and Plan Assessment and Plan respiratory failure hypoxic and hypercapnic COPD EXACERBATION CXRAY MILD CONGESTION PLAN O2/BIPAP NEEDED BRONCHODILATOR THERAPY INCREASE ACTIVITY OK FOR MED [facility]LOOR may benefit from a period for rehab Angelic Atwood MD Oct 11, 2017 18:16
[2017-10-11 18:36] LABS: BLOOD GAS BASE EXCESS 11.9 mmol/L (-2-2); BLOOD GAS HCO3 36 mmol/L (22-26); BLOOD GAS METHEMOGLOBIN 1.1 % (0-2); BLOOD GAS O2 HGB SATURATION 90 % (90-100); BLOOD GAS OXYGEN CONTENT 17.6 Vol % (12.0-20.0); BLOOD GAS PCO2 50 mmHg (38-42); BLOOD GAS PO2 60 mmHg (61-120); CRITICAL VALUE NO; DRAW SITE LT RADIAL; LITER FLOW 2 L/M; NUMBER OF ARTERIAL PUNCTURES 1; OXYGEN DEVICE NASAL CANNULA; STAT NO; ULNAR PULSE PRESENT
[2017-10-11] MEDS: ENOXAPARIN SODIUM 40 MG/0.4 ML SYRINGE SQ SCH (19:41)
[2017-10-11] MEDS: PRAVASTATIN SOD 40 MG TAB PO SCH (19:42)
[2017-10-12] VITALS (11 sets, daily range): BP systolic 96–124; BP diastolic 51–79; PULSE 78–100; RESP 20–22; TEMP 97.5–98.2; O2SAT 92–97
[2017-10-12] MEDS: methylPREDNISolone SOD SUCC 125 MG/2 ML VIAL IV PUSH SCH ×2 (00:17→08:19)
[2017-10-12] MEDS: RESP: ALBUTEROL 2.5 MG/IPRATROPIUM 0.5 MG NEB (SCH) NEB ×3 (03:07→19:15)
[2017-10-12] MEDS: SODIUM CHLORIDE 0.9% FLUSH 10 ML FLUSH IV FLUSH SCH ×2 (08:05→19:42)
[2017-10-12] MEDS: DILTIAZEM-CD 240 MG CAP ER PO SCH (08:06)
[2017-10-12] MEDS: ASPIRIN 325 MG TAB PO SCH (08:06)
[2017-10-12] MEDS: BUDESONIDE-FORMOTEROL 160/4.5 MCG INHALER INH SCH ×2 (08:06→19:41)
[2017-10-12] MEDS: TIOTROPIUM BROMIDE 18 MCG INH INH SCH (08:06)
[2017-10-12] MEDS: LEVOFLOXACIN 750 MG TAB PO SCH (08:07)
[2017-10-12] MEDS: POTASSIUM CHLORIDE 10 MEQ CONTROLLED RELEASE TAB PO SCH (08:07)
[2017-10-12] MEDS: PANTOPRAZOLE SOD 40 MG DELAYED RELEASE TAB PO SCH (08:08)
[2017-10-12] MEDS: LISINOPRIL 5 MG TAB PO SCH (08:08)
[2017-10-12] MEDS: METOPROLOL SUCCINATE 25 MG EXTENDED RELEASE TAB PO SCH (08:08)
[2017-10-12] MEDS ORDERED: methylPREDNISolone SOD SUCC 125 MG/2 ML VIAL IV PUSH SCH (14:00)
--- NOTE | 2017-10-12 15:09 | HHI.PR ---
Subjective Remarks Follow-up on COPD exacerbation. Nursing reports that the patient is doing well on 2 L. Patient himself reports no deterioration since last night, says he feels even better than yesterday. Says he does not want to go to any rehabilitation facility, he says he has his at home and family members one of which has nursing experience. Patient states that he does not even want home PT or nursing upon discharge. Objective Vital Signs Date Time Temp Pulse Resp B/P (MAP) Pulse Ox O2 Delivery O2 Flow Rate FiO2 10/12/17 12:00 Nasal Cannula 2.00 10/12/17 12:00 97.9 82 22 124/79 (94) 97 10/12/17 09:41 95 Nasal Cannula 2.00 10/12/17 08:00 Nasal Cannula 2.00 10/12/17 08:00 97.5 79 20 107/64 (78) 92 10/12/17 04:00 96 30 10/12/17 04:00 97.5 78 21 99/65 (76) 96 10/12/17 04:00 96 Bi-Pap 30 10/12/17 04:00 82 10/12/17 01:13 96 30 10/12/17 00:00 95 Bi-Pap 30 10/12/17 00:00 84 10/12/17 00:00 84 10/12/17 00:00 95 Bi-Pap 30 10/12/17 00:00 97.8 96 20 123/69 (87) 95 10/11/17 22:40 93 30 10/11/17 21:10 91 Nasal Cannula 2.00 10/11/17 20:00 98 10/11/17 20:00 97.9 102 23 116/71 (86) 91 10/11/17 20:00 91 Nasal Cannula 2.00 Humidified 10/11/17 16:15 96 22 83/55 (64) 92 10/11/17 16:15 98 10/11/17 16:00 100 10/11/17 16:00 97.5 94 16 96/23 (47) 92 10/11/17 16:00 91 Nasal Cannula 2.00 I/O 10/11/17 10/11/17 10/11/17 10/12/17 10/12/17 10/12/17 06:59 14:59 22:59 06:59 14:59 22:59 Intake Total 120 ml 480 ml 480 ml 480 ml Output Total 600 ml 900 ml 1200 ml 400 ml Balance -480 ml -420 ml -720 ml 80 ml Intake Oral 120 ml 480 ml 480 ml 480 ml Output Urine Total 600 ml 900 ml 1200 ml 400 ml # Bowel Movements 0 1 1 Result Diagram: 10/10/17 0425 Objective Remarks no cyanosis, NC in place improved BS BL and with mild expiratory wheezing A/P Assessment and Plan Mr. Ortiz is a 67 year old male with a history of COPD, pacemaker placement who was admitted on 10/04/2017 due to shortness of breath. Acute on chronic respiratory failure - WOB at baseline, down to home 2 L - BiPAP PRN - Pulmonology following - continue Levaquin PO. - 60 mg iv solumedrol q8, with transition to oral steroids and hopeful discharge tomorrow - Continue Symbicort and Spiriva, duo nebs from when necessary to scheduled for the time being Acute systolic CHF - continue lisinopril, bblockers, will transition to oral lasix given good net outpt, and KCL - Atrial fibrillation baby aspirin. [id number] score now a 2 (Age + CHF). Follows up with [facility]. Lovenox for now, anticipate transition to NOAC upon discharge. - Hyperlipidemia - Continue Diltiazem 240mg Qday. - Continue Pravastatin 40mg QHS. Sudhir Allan MD Oct 12, 2017 15:09
[2017-10-12] MEDS: ENOXAPARIN SODIUM 40 MG/0.4 ML SYRINGE SQ SCH (19:41)
[2017-10-12] MEDS: methylPREDNISolone SOD SUCC 40 MG/1 ML VIAL IV PUSH SCH (19:42)
[2017-10-12] MEDS: PRAVASTATIN SOD 40 MG TAB PO SCH (19:42)
[2017-10-13] VITALS (13 sets, daily range): BP systolic 100–131; BP diastolic 59–64; PULSE 76–102; RESP 13–28; TEMP 97.5–98.8; O2SAT 92–97
[2017-10-13] MEDS: RESP: ALBUTEROL 2.5 MG/IPRATROPIUM 0.5 MG NEB (SCH) NEB ×3 (07:27→19:32)
[2017-10-13] MEDS: SODIUM CHLORIDE 0.9% FLUSH 10 ML FLUSH IV FLUSH SCH ×2 (09:33→20:04)
[2017-10-13] MEDS: methylPREDNISolone SOD SUCC 40 MG/1 ML VIAL IV PUSH SCH ×2 (09:33→20:03)
[2017-10-13] MEDS: TIOTROPIUM BROMIDE 18 MCG INH INH SCH (09:33)
[2017-10-13] MEDS: BUDESONIDE-FORMOTEROL 160/4.5 MCG INHALER INH SCH ×2 (09:33→20:03)
[2017-10-13] MEDS: ASPIRIN 325 MG TAB PO SCH (09:34)
[2017-10-13] MEDS: PANTOPRAZOLE SOD 40 MG DELAYED RELEASE TAB PO SCH (09:34)
[2017-10-13] MEDS: LISINOPRIL 5 MG TAB PO SCH (09:34)
[2017-10-13] MEDS: METOPROLOL SUCCINATE 25 MG EXTENDED RELEASE TAB PO SCH (09:34)
[2017-10-13] MEDS: POTASSIUM CHLORIDE 10 MEQ CONTROLLED RELEASE TAB PO SCH (09:34)
[2017-10-13] MEDS: DILTIAZEM-CD 240 MG CAP ER PO SCH (09:34)
[2017-10-13] MEDS: LEVOFLOXACIN 750 MG TAB PO SCH (09:35)
--- NOTE | 2017-10-13 11:08 | HHI.PR ---
Subjective Remarks Follow-up on COPD exacerbation. Nursing denies any deterioration since last night. Patient himself says he feels okay. I discussed with respiratory therapy and said that he is doing fine on 2 L during the day and at BiPAP at night, they have clarified that indeed the patient did not have any respiratory deteriorations on his appropriate settings. Objective Vital Signs Date Time Temp Pulse Resp B/P (MAP) Pulse Ox O2 Delivery O2 Flow Rate FiO2 10/13/17 10:00 102 16 100/64 (76) 95 10/13/17 08:00 Nasal Cannula 2.00 10/13/17 08:00 98.2 86 15 92 10/13/17 07:27 94 Nasal Cannula 2.00 10/13/17 04:00 93 Bi-Pap 30 10/13/17 04:00 98.5 76 13 103/63 (76) 93 10/13/17 04:00 76 10/13/17 03:55 93 30 10/13/17 02:00 86 10/13/17 02:00 96 Bi-Pap 30 10/13/17 01:05 94 30 10/13/17 00:00 97.5 84 14 108/59 (75) 92 10/13/17 00:00 82 10/13/17 00:00 92 Bi-Pap 30 10/12/17 22:00 92 10/12/17 22:00 94 Bi-Pap 30 10/12/17 21:25 93 30 10/12/17 20:00 97.5 100 21 102/64 (77) 92 10/12/17 20:00 92 Nasal Cannula 2.00 10/12/17 19:15 93 Nasal Cannula 2.00 10/12/17 17:29 98.2 92 22 96/51 (66) 93 10/12/17 16:00 Nasal Cannula 2.00 10/12/17 12:00 Nasal Cannula 2.00 10/12/17 12:00 97.9 82 22 124/79 (94) 97 I/O 10/12/17 10/12/17 10/12/17 10/13/17 10/13/17 10/13/17 07:00 15:00 23:00 07:00 15:00 23:00 Intake Total 480 ml 480 ml 360 ml Output Total 1200 ml 400 ml 850 ml 1450 ml Balance -720 ml 80 ml -850 ml -1090 ml Intake Oral 480 ml 480 ml 360 ml Output Urine Total 1200 ml 400 ml 850 ml 1450 ml # Bowel Movements 1 1 Result Diagram: 10/10/17 0425 Objective Remarks no cyanosis, NC in place improved BS BL and with mild expiratory wheezing A/P Assessment and Plan Mr. Ortiz is a 67 year old male with a history of COPD, pacemaker placement who was admitted on 10/04/2017 due to shortness of breath. Acute on chronic respiratory failure - WOB at baseline, down to home 2 L - BiPAP PRN - Pulmonology following - continue Levaquin PO. - 40 mg iv solumedrol q8, with hopeful discharge tomorrow with BIPAP once Dr. Phoenix returns - Continue Symbicort and Spiriva, duo nebs from when necessary to scheduled for the time being Acute systolic CHF - continue lisinopril, bblockers, will transition to oral lasix given good net outpt, and KCL - Atrial fibrillation baby aspirin. [id number] score now a 2 (Age + CHF). Follows up with [facility]. Lovenox for now, anticipate transition to NOAC upon discharge. - Hyperlipidemia - Continue Diltiazem 240mg Qday. - Continue Pravastatin 40mg QHS. Sudhir Allan MD Oct 13, 2017 11:08
[2017-10-13] MEDS: ENOXAPARIN SODIUM 40 MG/0.4 ML SYRINGE SQ SCH (20:03)
[2017-10-13] MEDS: PRAVASTATIN SOD 40 MG TAB PO SCH (20:04)
[2017-10-14] VITALS (15 sets, daily range): BP systolic 124–155; BP diastolic 53–84; PULSE 71–104; RESP 16–33; TEMP 97.7–97.8; O2SAT 90–98
[2017-10-14] MEDS: RESP: ALBUTEROL 2.5 MG/IPRATROPIUM 0.5 MG NEB (SCH) NEB ×2 (07:23→13:45)
[2017-10-14] MEDS: BUDESONIDE-FORMOTEROL 160/4.5 MCG INHALER INH SCH (08:35)
[2017-10-14] MEDS: TIOTROPIUM BROMIDE 18 MCG INH INH SCH (08:35)
[2017-10-14] MEDS: ASPIRIN 325 MG TAB PO SCH (08:36)
[2017-10-14] MEDS: METOPROLOL SUCCINATE 25 MG EXTENDED RELEASE TAB PO SCH (08:36)
[2017-10-14] MEDS: DILTIAZEM-CD 240 MG CAP ER PO SCH (08:36)
[2017-10-14] MEDS: LEVOFLOXACIN 750 MG TAB PO SCH (08:36)
[2017-10-14] MEDS: LISINOPRIL 5 MG TAB PO SCH (08:37)
[2017-10-14] MEDS: methylPREDNISolone SOD SUCC 40 MG/1 ML VIAL IV PUSH SCH (08:37)
[2017-10-14] MEDS: SODIUM CHLORIDE 0.9% FLUSH 10 ML FLUSH IV FLUSH SCH (08:37)
[2017-10-14] MEDS: PANTOPRAZOLE SOD 40 MG DELAYED RELEASE TAB PO SCH (08:37)
[2017-10-14] MEDS: POTASSIUM CHLORIDE 10 MEQ CONTROLLED RELEASE TAB PO SCH (09:00)
[2017-10-14] MEDS ORDERED: TAMS5CAP PO (11:10)
[2017-10-14] MEDS ORDERED: PRED10 PO (11:10)
[2017-10-14] MEDS ORDERED: ASPI81TA23 PO (11:10)
[2017-10-14] MEDS ORDERED: METO1TAB42 PO (11:10)
[2017-10-14] MEDS ORDERED: LEVA750T9 PO (11:10)
[2017-10-14] MEDS ORDERED: SPIR25TA PO (11:10)
[2017-10-14] MEDS ORDERED: LISI-519 PO (11:10)
[2017-10-14] MEDS ORDERED: SYMB160A INH (11:12)
--- NOTE | 2017-10-14 11:13 | HHI.DCPOC ---
Discharge Care Plan Diagnosis: (1) Hypercapnia (2) End stage COPD (3) Atrial fibrillation (4) COPD exacerbation (5) Acute on chronic respiratory failure Goals to Promote Your Health * To prevent worsening of your condition and complications * To maintain your health at the optimal level Directions to Meet Your Goals Take your medications as prescribed Follow your dietary instruction Follow activity as directed Keep your appointments as scheduled Take your immunizations and boosters as scheduled If your symptoms worsen call your PCP, if no PCP go to Urgent Care Center or Emergency Room Smoking is Dangerous to Your Health. Avoid second hand smoke Call the 24-hour hour crisis hotline for domestic abuse at Sudhir Allan MD Oct 14, 2017 11:12
[2017-10-14] MEDS ORDERED: PRAD150C PO (11:16)
--- NOTE | 2017-10-14 13:21 | HHI.DS ---
Discharge Summary Admission Date Oct 04, 2017 at 11:36 Discharge Date: Oct 14, 2017 Admitting Diagnosis COPD exacerbation (1) COPD exacerbation ICD Code: J44.1 - Chronic obstructive pulmonary disease with (acute) exacerbation Status: Acute (2) Pacemaker ICD Code: Z95.0 - Presence of cardiac pacemaker Status: Chronic (3) Dyslipidemia ICD Code: E78.5 - Hyperlipidemia, unspecified (4) Atrial fibrillation ICD Code: I48.91 - Unspecified atrial fibrillation (5) Tobacco dependence ICD Code: F17.200 - Nicotine dependence, unspecified, uncomplicated Status: Chronic Procedures None. Brief History - From Admission Written by Magalie Tejada, acting as scribe for Dr. Taveras on 10/04/17 at 1640. Mr. Ortiz is a 67-year-old male patient with a known medical history COPD, pacemaker placement and tobacco dependance who presented to the ED with complaints of worsening shortness of breath x 3 days. Patient states that he developed a cough after being around his sick grandchildren. He states he has been unable to perform any ADLs without becoming short of breath. Normally on 2L NC at home but has recently been requiring 3-4L. Also has been needing his inhalers more regularly. Denies any chest pain. Cough is present, states it is intermittently productive, white in color when present. Denies any recent fever , chills, headache, ab pain, n/v/d or dysuria. Does state he tried calling his primary care doctor with stated complaints without a return call therefore he decided to come into the ED. Follows with Dr. Trujillo for pulmonology. Denies any recent steroid or antibiotic use. CBC/BMP: 10/10/17 0425 Significant Findings Laboratory Tests Test 10/11/17 18:30 Blood Gas HCO3 36 mmol/L (22-26) Blood Gas Base Excess 11.9 mmol/L (-2-2) Arterial Blood pH 7.48 (7.380-7.420) Arterial Blood Partial Pressure CO2 50 mmHg (38-42) Arterial Blood Partial Pressure O2 60 mmHg (61-120) Imaging Last Impressions Chest X-Ray 10/09/17 0000 Signed Impressions: Service Date/Time: Monday, October 09, 2017 13:45 - CONCLUSION: 1. Increasing interstitial prominence which may represent mild pulmonary congestion considering the degree of COPD. 2. No evidence of consolidating airspace disease. 3. Left pleural parenchymal scarring. 4. Stable pacemaker. Mario Aguayo MD PE at Discharge Elderly white male, no acute distress, on nasal cannula Coarse breath sounds bilaterally that are adequate Hospital Course Patient was admitted, started on IV steroids diuresis and antibiotics. He had an echocardiogram done which showed a significant systolically reduced ejection fraction for which he was started on heart failure medications of [place] inhibitor and being optimized on his beta flory. His symptoms eventually significantly improved once he had a course of high-dose IV steroids for a whole 24 hours. Pulmonology was consulted and helped manage the patient to stabilize on BiPAP settings at night while being successfully weaned down to 2 L during the day. Patient was able to tolerate his physical therapy sessions well and was very adamant that he did not need rehabilitation despite at least home recommendations. Patient did have an elevated stroke risk factor given his A. fib and congestive heart failure diagnosis so he was counseled on the importance of the risks and benefits of anticoagulation - but that he nonetheless medically warranted anticoagulation. He is also being discharged on a new inhaled corticosteroid for better control of his chronic lung disease. Patient has met maximal benefit from hospitalization and is clinically stable for discharge. Pt Condition on Discharge: Stable Discharge Disposition: Discharge Home Discharge Time: <= 30 minutes Discharge Instructions DIET: Follow Instructions for: Heart Healthy Diet Activities you can perform: Regular-No Restrictions Follow up Referrals: PCP Follow-up - 1 Week Pulmonology - 10 Days with Angelic Atwood MD New Medications: Aspirin DR (Aspirin EC) 81 Mg Tabdr 81 MG PO DAILY for heart health, #30 TAB 0 Refills Budesonide-Formoterol Inh (Symbicort Inh) 160-4.5 Mcg/Act Aero 1 PUFF INH Q12HR, #1 INHALER 0 Refills Dabigatran (Pradaxa) 150 Mg Cap 150 MG PO BID for Blood Clot Prevention, #60 CAP 0 Refills Prednisone (Prednisone) 10 Mg Tab 10 MG PO DAILY for copd, #60 TAB 0 Refills take 4 tabs/day po for 4 d, then 3 tabs/day po for 4 days, then 2 tabs/day po aftewards Spironolactone (Spironolactone) 25 Mg Tab 12.5 MG PO DAILY for heart health, #15 TAB 0 Refills Tamsulosin (Flomax) 0.4 Mg Cap 0.4 MG PO HS for Manage Prostate Problems, #30 CAP 0 Refills Levofloxacin (Levaquin) 750 Mg Tablet 750 MG PO DAILY for copd, #4 TAB Lisinopril (Lisinopril) 5 Mg Tab 5 MG PO DAILY for heart failure, #30 TAB Metoprolol Succinate ER 24 HR (Metoprolol Succinate ER 24 HR) 25 Mg Tab 12.5 MG PO DAILY for heart failure, #30 TAB take half of 25 mg tab once day Continued Medications: Albuterol Neb (Albuterol Neb) 1.25 Mg/3 Ml Neb 1.25 MG NEB Q4HR NEB PRN for SHORTNESS OF BREATH, #50 NEBULE 0 Refills Diltiazem CD 24 HR (Diltiazem CD 24 HR) 240 Mg Caper 240 MG PO DAILY, #30 CAP 0 Refills Fluticasone-Salmeterol Inh (Advair Diskus Inh) 250-50 Mcg/Blist Aer 1 PUFF INH BID, #1 INHALER 0 Refills Rinse mouth after use. Lovastatin (Lovastatin) 40 Mg Tab 40 MG PO HS for Cholesterol Management, #30 TAB 0 Refills Tiotropium Inh (Spiriva Handihaler) 18 Mcg Cap 18 MCG INH DAILY for COPD, #30 CAP 0 Refills 1 capsule = 18 mcg Discontinued Medications: Aspirin (Aspirin) 325 Mg Tab 325 MG PO DAILY, #30 TAB 0 Refills Sudhir Allan MD Oct 14, 2017 13:21
--- NOTE | 2017-10-14 15:49 | HHI.PR ---
Subjective Remarks ALERT o2 sat 93% on 02 N/C needs BIPAP ESPECIAL DURING SLEEP Objective Vital Signs Date Time Temp Pulse Resp B/P (MAP) Pulse Ox O2 Delivery O2 Flow Rate FiO2 10/14/17 13:00 80 22 95 10/14/17 12:00 78 10/14/17 12:00 84 21 97 10/14/17 12:00 94 Nasal Cannula 10/14/17 11:00 94 10/14/17 10:00 100 24 93 10/14/17 09:14 104 21 124/53 (76) 95 10/14/17 08:00 71 10/14/17 08:00 93 Nasal Cannula 10/14/17 08:00 97.8 80 16 94 10/14/17 07:25 92 Nasal Cannula 2.00 10/14/17 07:00 82 33 94 10/14/17 06:40 97 Nasal Cannula 2.00 10/14/17 04:20 97 30 10/14/17 04:00 78 10/14/17 04:00 78 22 137/84 (101) 98 10/14/17 04:00 97 Bi-Pap 30 10/14/17 02:07 95 30 10/14/17 00:00 84 10/14/17 00:00 97.7 98 24 140/78 (98) 90 10/14/17 00:00 90 Bi-Pap 30 10/13/17 21:50 97 30 10/13/17 20:00 98.8 88 28 131/61 (84) 95 10/13/17 20:00 88 10/13/17 20:00 96 Nasal Cannula 2.00 Humidified 10/13/17 19:35 95 Nasal Cannula 2.00 10/13/17 16:00 76 23 93 10/13/17 16:00 Nasal Cannula 2.00 I/O 10/13/17 10/13/17 10/13/17 10/14/17 10/14/17 10/14/17 07:00 15:00 23:00 07:00 15:00 23:00 Intake Total 360 ml 200 ml 480 ml Output Total 1450 ml 1200 ml Balance -1090 ml 200 ml -720 ml Intake Oral 360 ml 200 ml 480 ml Output Urine Total 1450 ml 1200 ml # Bowel Movements 1 Result Diagram: 10/10/17 0425 Objective Remarks GENERAL: SKIN: Warm and dry. HEAD: Atraumatic. Normocephalic. EYES: Pupils equal and round. No scleral icterus. No injection or drainage. ENT: No nasal bleeding or discharge. Mucous membranes pink and moist. NECK: Trachea midline. No JVD. CARDIOVASCULAR: Regular rate and rhythm. RESPIRATORY: No accessory muscle use. Clear to auscultation. Breath sounds equal bilaterally. GASTROINTESTINAL: Abdomen soft, non-tender, nondistended. Hepatic and splenic margins not palpable. MUSCULOSKELETAL: Extremities without clubbing, cyanosis, or edema. No obvious deformities. NEUROLOGICAL: Awake and alert. No obvious cranial nerve deficits. Motor grossly within normal limits. Five out of 5 muscle strength in the arms and legs. Normal speech. PSYCHIATRIC: Appropriate mood and affect; insight and judgment normal. Assessment and Plan Assessment and Plan respiratory failure hypoxic and hypercapnic COPD EXACERBATION CXRAY MILD CONGESTION PLAN Home on O2/BIPAP BRONCHODILATOR THERAPY INCREASE ACTIVITY will sign off office 2 weeks Angelic Atwood MD Oct 14, 2017 15:49
== END 2017-10-14 17:20 | disposition home or self-care (01) | DRG 189 ==
LOC: PHED 08:20 → PHEDA 11:36 → OBSVTOIN 11:36 → PH3A 13:40 → PHICU 17:48
PROVIDERS: ADMIT Hospitalist; ATTEND Hospitalist
PROC: 5A09557 Assistance with Respiratory Ventilation, Greater than 96 Consecutive Hours, Continuous Positive Airway Pressure (ICD-10-PCS; principal; 2017-10-04)
DX: J96.21 Acute and chronic respiratory failure with hypoxia (principal); I50.21 Acute systolic (congestive) heart failure; E87.2 Acidosis; J44.1 Chronic obstructive pulmonary disease with (acute) exacerbation; J96.22 Acute and chronic respiratory failure with hypercapnia; E78.5 Hyperlipidemia, unspecified; M19.90 Unspecified osteoarthritis, unspecified site; I48.91 Unspecified atrial fibrillation; I25.10 Atherosclerotic heart disease of native coronary artery without angina pectoris; F17.210 Nicotine dependence, cigarettes, uncomplicated; Z95.0 Presence of cardiac pacemaker; Z99.81 Dependence on supplemental oxygen
CPT/HCPCS: 36600; 71010; 71020; 80048; 82805; 83735; 84484; 85025; 85610; 85730; 93005; 93306; 94002; 94003; 94640; 94664; J0456; J1650; J1940; J2920; J2930; J7050; J7512; J7613